=== PATIENT | male | born 1950 | race Caucasian/White ===

== ENCOUNTER → 2019-06-30 14:25 | Outpatient (BNVA) | payer MEDICARE, MEDICAID, SELFPAY | PROVIDERS: PCP Family Medicine; Referring Provider Family Medicine; Visit Provider Physical Therapy Assistant | DX: Z80.0 Family history of malignant neoplasm of digestive organs; L98.9 Disorder of the skin and subcutaneous tissue, unspecified | CPT/HCPCS: 99213 ==

== ENCOUNTER 2019-08-18 06:20 | Day surgery (SDC) | payer MEDICARE, MEDICAID, SELFPAY ==
[2019-08-18 06:38] VITALS: BP 124/65; PULSE 71; RESP 18; TEMP 36.5; O2SAT 96
[2019-08-18] MEDS: Lactated Ringers 1,000 ML 80 ML IV ×4 (06:52→07:10)
[2019-08-18] MEDS: Midazolam 2 MG/1 ML SYRUP 30 MG PO (07:12)
--- NOTE | 2019-08-18 08:07 | BOWEL_PTH ---
PATIENT: Gera Hubbard LOC: [facility] U#:[id number] AGE/SX: 69/M ROOM: RE08/18/[address]: Renetta Darling MD : [id number] BED: DIS: 08/18/2019 SPEC #: [id number] RECD: 08/18/19 12:35 STATUS: TATYANA RE #: [id number] DEEPTI: 08/18/19 08:[address]: Renetta Darling DEPT: Surgical Specimen RECD BY: Virginia Ritter ENTERED: 08/18/19 12:38 SP TYPE: Bowel OTHR DR: Nori Arita Tissues: 1 - SKIN BIOPSY(SHAVE/PUNCH) 2 - BIOPSY BOWEL 3 - BIOPSY BOWEL 4 - BIOPSY BOWEL 5 - BIOPSY BOWEL Procedures: GROSS AND MICRO LEVEL 4 SKIN LEVEL 4 Comments: [id number]
[2019-08-18 08:19] LABS: HCT 43.4 % (40.0-50.0); HGB 14.4 g/dL (13.5-17.5); Mean Corp. HGB Concentration 33.2 g/dL (32.0-36.0); Mean Corpuscular Hemoglobin 29.2 pg (27.0-33.0); Mean Platelet Volume 9.6 fL (8.0-11.0); Platelet Count 246 x1000/uL (130-400); RBC 4.93 m/cumm (4.50-6.00); RBC Distribution Width 14.3 % (11.8-14.1); White Blood Cell Count 5.01 k/cumm (4.4-10.8)
[2019-08-18] MEDS: Lidocaine 1% Multi-Dose 50 ML VIAL (08:21)
[2019-08-18] MEDS: Bacitracin 30 GM TUBE (08:21)
[2019-08-18 08:27] LABS: Hemoglobin A1C 6.3 % (4.5-6.2)
[2019-08-18] MEDS: Endoscopic Tattoo 5 ML SYR IJ (08:55)
--- NOTE | 2019-08-18 09:06 | W.PM.DSUDISC ---
Discharge Plan Disposition Patient Disposition: HOME Condition: Good Discharge Details Reason For Visit: Colonoscopy, shave excision right tovar skin lesion Attending Provider: Renetta Darling Primary Care Provider: Nori Arita Home Meds and New Rx's Prescriptions: Continued lorazepam [Ativan] 2 mg tablet 2 mg PO ONCE PRN (Reason: anxiety) Qty: 1 RF: 0 Glucerna Liquid PO DAILY RF: 0 Discontinued polyethylene glycol 3350 17 gram/dose powder 238 g PO ONCE Qty: 238 RF: 0 bisacodyl [Dulcolax (bisacodyl)] 5 mg tablet,delayed release (DR/EC) 5 mg PO ONCE Qty: 4 RF: 0 Discharge Instructions Additional Instructions: Findings: Four polyps were removed from the colon, including a large rectal polyp. My office will contact you with biopsy results. Follow up: If the rectal polyp is benign, close follow up in one year is needed due to the large size. Keep the right tovar lesion covered with a Bandaid until healed. This may take a few weeks. The dressing applied in surgery may be left for a few days. Please call if you develop: fevers >101.5 Nausea or Vomiting Abdominal pain that is not transient DAY SURGERY UNIT POST COLONOSCOPY INSTRUCTIONS 1. Because there will be medication in your system for the next 24 hours, you may feel a little sleepy. Your coordination will be affected. Therefore: a. Do not drive or operate dangerous equipment for 24 hours. b. Do not drink alcohol beverages for 24 hours (not even beer). c. Plan to go home and rest for the day. 2. Generally there are no restrictions on your activity after a day or so has gone by, but you may feel a bit fatigued for a few days. 3 After you arrive home you may have a light meal and return to a normal diet as you can tolerate it without feeling sick to your stomach. 4. After surgery, you may feel pain or discomfort. This should be only transient, but if it persists please contact your doctor. 5. If there are any questions regarding the findings of your procedure, please feel free to contact your doctor. 6. If you are unable to contact your doctor with a problem, contact the hospital at [phone]. 7. Continue all your regular medications unless directed otherwise. I understand the above instructions and have no questions. Signature of Patient or Responsible Adult Escort Date/Time Name of Responsible Adult Escort Signature of Nurse Date/Time Activity:: Activity as Tolerated Diet:: As Tolerated Discharge Orders Discharge Orders: Discharge Order (Routine); Ordered 08/18/19 Ordered By: Renetta Darling DS: Diagnosis Discharge Diagnosis (1) Skin lesion: Status: Acute (2) Colon polyps: Status: Acute
[2019-08-18 09:21] LABS: ALT 20 U/L (16-63); AST 23 U/L (15-37); Albumin 3.5 g/dL (3.4-5.0); Alkaline Phosphatase 105 U/L (46-116); Anion Gap 8.2 mmol/L (3-11); BUN 11 mg/dL (7-18); Bilirubin, Total 0.5 mg/dL (0.2-1.0); CO2 30.8 mmol/L (21.0-32.0); CREATININE 0.85 mg/dL (0.70-1.30); Calcium 8.2 mg/dL (8.5-10.1); Calculated LDL 94 mg/dL; Chloride 106 mmol/L (98-107); Cholesterol 151 mg/dL (50-200); Glucose 122 mg/dL (70-100); HDL Cholesterol 35 mg/dL (40-60); Potassium 3.8 mmol/L (3.5-5.1); Sodium 145 mmol/L (136-145); TSH (W/Ref FT4) 1.66 uIU/mL (0.36-3.74); Total Protein 6.4 g/dL (6.4-8.2); Triglyceride 113 mg/dL (30-150)
[2019-08-18 09:26] VITALS: BP 119/69; PULSE 63; RESP 16; TEMP 36.4; O2SAT 95
[2019-08-18 09:38] VITALS: BP 121/68; PULSE 63; RESP 16; TEMP 36.5; O2SAT 95
--- NOTE | 2019-08-18 10:04 | W.PM.PROGNOT ---
Date of Service Date of service: 08/18/19 Time of Service: 10:04 Subjective Subjective Interval history since last seen: management of mycotic painful toenails Exam Narrative Exam Narrative: Iftikhar is well-known to me. He suffers from chronic onychomycosis with onychogryphosis. I have recommended permanent removal of the nail plates as he has a very difficult time having his toenails debrided to maintain comfort. He is not prepared at this time to consent to permanent matrixectomy procedures but he would like to have the nails debrided while he is anesthetized for his upcoming surgical procedures with Dr. Darling. Objective: His toenails are severely fungal being thick, yellowish-white, dystrophic, hypertrophic, elongated and in need of debridement. All toenails are grossly deformed. Heavy subungual debris with periungual tenderness is appreciated. There is no active drainage or secondary signs of infection. He has good peripheral pulses without peripheral edema. No suspicious moles or lesions identified on his feet at this time. Impressions: Onychomycosis with onychogryphosis chronic Plan: Manually debrided all toenails 1 through 5 bilaterally aggressively and atraumatically to patient tolerance. Further debrided the nails electrically to reduce thickness. I will continue to follow him in the office episodically as I have been doing for the last several years. Objective Objective Clinical Data: Abnormal lab results 08/18/19 08/18/19 08/18/19 Range/Units 08:07 08:07 08:07 RDW 14.3 H (11.8-14.1) % Glucose 122 H (70-100) mg/dL Hemoglobin A1c 6.3 H (4.5-6.2) % Calcium 8.2 L (8.5-10.1) mg/dL HDL Cholesterol 35 L (40-60) mg/dL Vital Signs Temperature 36.5 C 08/18/19 09:38 Pulse 63 08/18/19 09:38 Pulse Rhythm Regular 08/18/19 06:38 Respiratory Rate 16 08/18/19 09:38 Respiratory Depth Normal 08/18/19 06:38 Blood Pressure 121/68 08/18/19 09:38 Pulse Oximetry 95 08/18/19 09:38 Oxygen Delivery Method Room Air 08/18/19 09:38 Oxygen Flow Rate 0 08/18/19 06:38 Pain Level 0 08/18/19 09:38 Intake & Output 08/17/19 08/18/19 08/18/19 18:59 06:59 18:59 Intake Total 23.999 / 23.999 Balance 23.999 / 23.999 Weight 86.3 kg Intake: IV 23.999 / 23.999 Oral 0 / 0 Other: Emesis Description None Laboratory Results WBC 5.01 k/cumm (4.4-10.8) 08/18/19 08:07 RBC 4.93 m/cumm (4.50-6.00) 08/18/19 08:07 Hgb 14.4 g/dL (13.5-17.5) 08/18/19 08:07 Hct 43.4 % (40.0-50.0) 08/18/19 08:07 MCV 88.0 fL (80-95) 08/18/19 08:07 MCH 29.2 pg (27.0-33.0) 08/18/19 08:07 MCHC 33.2 g/dL (32.0-36.0) 08/18/19 08:07 RDW 14.3 % (11.8-14.1) H 08/18/19 08:07 Plt Count 246 x1000/uL (130-400) 08/18/19 08:07 MPV 9.6 fL (8.0-11.0) 08/18/19 08:07 Sodium 145 mmol/L (136-145) 08/18/19 08:07 Potassium 3.8 mmol/L (3.5-5.1) 08/18/19 08:07 Chloride 106 mmol/L (98-107) 08/18/19 08:07 Carbon Dioxide 30.8 mmol/L (21.0-32.0) 08/18/19 08:07 Anion Gap 8.2 mmol/L (3-11) 08/18/19 08:07 BUN 11 mg/dL (7-18) 08/18/19 08:07 Creatinine 0.85 mg/dL (0.70-1.30) 08/18/19 08:07 Estimated GFR/1.73 m2 >= 60.00 (mL/min/1.73m2) 08/18/19 08:07 Glucose 122 mg/dL (70-100) H 08/18/19 08:07 Hemoglobin A1c 6.3 % (4.5-6.2) H 08/18/19 08:07 Calcium 8.2 mg/dL (8.5-10.1) L 08/18/19 08:07 Total Bilirubin 0.5 mg/dL (0.2-1.0) 08/18/19 08:07 AST 23 U/L (15-37) 08/18/19 08:07 ALT 20 U/L (16-63) 08/18/19 08:07 Alkaline Phosphatase 105 U/L (46-116) 08/18/19 08:07 Total Protein 6.4 g/dL (6.4-8.2) 08/18/19 08:07 Albumin 3.5 g/dL (3.4-5.0) 08/18/19 08:07 Triglycerides 113 mg/dL (30-150) 08/18/19 08:07 Total Cholesterol 151 mg/dL (50-200) 08/18/19 08:07 LDL Cholesterol, Calc 94 mg/dL 08/18/19 08:07 HDL Cholesterol 35 mg/dL (40-60) L 08/18/19 08:07 TSH 1.66 uIU/mL (0.36-3.74) 08/18/19 08:07
[2019-08-18 10:55] VITALS: BP 125/70; PULSE 65; RESP 16; TEMP 36; O2SAT 97
--- NOTE | 2019-08-21 09:59 | ROE_ITS ---
DATE OF PROCEDURE: August 18, 2019 PREOPERATIVE DIAGNOSIS: 1. Right tovar skin lesion of uncertain behavior. 2. Family history of colon cancer. POSTOPERATIVE DIAGNOSIS: 1. Right tovar skin lesion of uncertain behavior. 2. Colon polyps. PROCEDURE: 1. Shave biopsy and destruction of right tovar skin lesion. 2. Colonoscopy with snare polypectomy. 3. Tattooing of polypectomy site. SURGEON: Renetta Darling M.D. ANESTHESIA: Local and room air general. INDICATIONS: This is a 69-year-old man whose brother was treated for colon cancer. The patient pres ents for routine screening colonoscopy. He also has a persistent itching skin lesion on his right an terior tovar that has been treated with cryotherapy. It keeps returning and the caregivers have wonde red about excision. Of note, his prior colonoscopy was in 2013. PROCEDURE: The patient was placed supine on the operating table and sedated. His right anterior lino n was prepped and draped sterilely. There was a 1.5 cm circular, reddish, slightly scaly and minimal ly raised lesion with a second 8 mm lesion just distal to that. This area was infiltrated with local anesthetic. A #16 blade was used to shave a portion of the lesion, which was sent to pathology. Th e remainder was cauterized. The wound was dressed with Bacitracin, a 2x2 and a Tegaderm. The patient was then repositioned onto his left side. Digital rectal examination revealed no abnorma lities. The scope was advanced to the cecum without difficulty. His prep was excellent. The ileoce gerda valve and appendiceal orifice were clearly identified. The scope was slowly withdrawn with a < 1 cm polyp identified in the ascending colon. This was removed with snare polypectomy and retrieved f or pathology. The transverse colon was normal. In the descending colon a < 1 cm polyp was snared an d retrieved for pathology. There was also a similar lesion in the sigmoid region that was snared and retrieved. The rectum revealed a large flat polyp that was probably within 5 cm of the anal verge. A portion of this was more polypoid and then adjacent to it had some minimal flat polypoid change. This measured approximately 2 cm. The larger polypoid region was removed with the snare in piecemeal . The largest piece was dragged out for retrieval and then the remaining smaller pieces could be suc tioned through the scope. The flat minimal polypoid change was cauterized with the tip of the snare. I then tattooed the lesion on either side. Two hemostatic clips were applied. There had been good hemostasis and this was done more as a preventative measure. The air was suctioned from the colon a nd the scope withdrawn. Repeat digital rectal examination revealed the clips to be present in the pa tient's right lateral location. After completion of the procedure, he was also given his vaccination s under anesthesia per caregiver request. He tolerated the procedure well and was stable to recovery . If the rectal polyp is benign, he should have a follow-up colonoscopy again in one year. Further plans will be made after review of pathology. cc: Nori Arita M.D.
== END 2019-08-18 11:25 | disposition home or self-care (01) ==
PROVIDERS: PCP Family Medicine; Visit Provider Surgery
PROC: 0DJD8ZZ Inspection of Lower Intestinal Tract, Via Natural or Artificial Opening Endoscopic (ICD-10-PCS; CPT 45378; principal; 2019-08-18 07:30)
PROC: (CPT 45385; 2019-08-18 07:30)
DX: Z12.11 Encounter for screening for malignant neoplasm of colon (principal); D04.71 Carcinoma in situ of skin of right lower limb, including hip; Z80.0 Family history of malignant neoplasm of digestive organs; D12.2 Benign neoplasm of ascending colon; D12.4 Benign neoplasm of descending colon; D12.5 Benign neoplasm of sigmoid colon; D12.8 Benign neoplasm of rectum
CPT/HCPCS: 45385; 45381; 11102; 36415; 80053; 80061; 85027; 88305; 99231; 83036; 84443

== ENCOUNTER 2021-01-15 18:48 | Emergency (ER) | payer MEDICARE, MEDICAID, SELFPAY ==
--- NOTE | 2021-01-15 18:45 | DI.RAD_ITS ---
EXAM: XR KNEE LT 3V AP,LAT,MARLO CLINICAL HISTORY: Pain, devel delay. TECHNIQUE: 2D digital imaging was performed. COMPARISON: CR,XR XR KNEE RT 3V AP,LAT,MARLO from 01/15/2021 FINDINGS: BONES: No acute fracture is present. No bony destructive lesion is seen. There is a small enthesophy te at the superior patella. JOINTS: The knee is normally aligned. There is a very small joint effusion. SOFT TISSUE: Normal. IMPRESSION: No acute abnormality. DATA REPOSITORY: RADIATION DOSE DELIVERED:
--- NOTE | 2021-01-15 18:54 | ED.GENADUL_ITS ---
Discharge Plan Disposition Patient Disposition: HOME Condition: Improving Discharge Details Clinical Impression: Myalgia Primary Care Provider: Nori Arita ED Provider: Poncho Castillo Home Meds and New Rx's Prescriptions: Continued lorazepam [Ativan] 2 mg tablet 2 mg PO ONCE PRN (Reason: anxiety) Qty: 1 RF: 0 Discharge Instructions Instructions: Musculoskeletal Pain (ED) Additional Instructions: May use Tylenol/acetaminophen 650 to 975 mg every 6 hours as needed for pain. You may also use ibuprofen 600 to 800 mg every 8 hours as needed for pain. We will ask our care management team to arrange a follow-up for you in clinic for recheck. Return if you have a fever, redness or swelling of a joint, or any other acute concerns. Medical Decision Making 70-year-old male presents on referral from [facility] where he lives. He is mentally retarded and has been noted to seeming to have some hip pain on the left leg with decreased willingness to ambulate. No fall reported. No fever or rash. He arrives to ER stable and without acute distress. He is noted to move the legs independently on his own, and then able to stand and ambulate to the bathroom.. He did receive his Covid immunization 2 days ago and may be experiencing myalgias. As he is nonverbal essentially, he is not a good contributor to the history. He does have anxiety with medical procedures and given 1 mg of lorazepam as well as acetaminophen. Referred for x-ray of the pelvis and both knees which do not show any acute findings. Improved following medications. May be myalgias. I have discussed with her caregiver plan for outpatient surveillance, we will arrange a follow-up with primary care for recheck. HPI General Mode of arrival: ambulatory . Date/Time Provider Initiated Documentation: 01/15/21 18:58 . Limitations to Documentation: no limitations . Information obtained by: patient . History of Present Illness 70 year old M presents to the emergency department with the chief complaint of Pain with walking, described as moderate, and it has been intermittent. Rest improves symptom(s), Movement worsens symptoms . Patient did receive the following treatments prior to arrival, other (No fall or injury reported.) Related Data Home Medications Medication Instructions Recorded Confirmed lorazepam 2 mg tablet 2 mg PO ONCE PRN #1 tab 08/03/19 01/15/21 Previous Rx's Medication Instructions Recorded lorazepam 2 mg tablet 2 mg PO ONCE PRN #1 tab 08/03/19 Allergies Allergy/AdvReac Type Severity Reaction Status Date / Time No Known Allergies Allergy Verified 08/18/19 06:36 Review of Systems Narrative: Review of systems limited due to patient's intellectual disability. [facility] Medical History PRINCE (dyspnea on exertion) Facial basal cell cancer Family hx of colon cancer Impaired fasting glucose Intellectual disability Partial blindness Seborrheic keratoses Surgical History History of colonoscopy Family History Other Cancer Social History Smoking/Tobacco Use Status: Never Smoking risk assessment performed?: Yes Alcohol Intake: never Drug use: Never Substance use type: does not use Do you feel safe at home: Yes (per caregiver he has been there 13 yrs and seems happy) Do you feel safe in your relationship?: Yes Exam Narrative Exam Narrative: GEN: awake, alert, interactive. HEAD: Normocephalic, atraumatic ENT: Mucous membranes moist, oropharynx unremarkable, External ear exam unremarkable EYES: PERRL, EOMI NECK: Full ROM, no AIDA, no menigismus CHEST/RESP: Nontender, clear to auscultation bilateral, no wheeze/rhonchi/rales CARDIOVASCULAR: RRR, no murmur, rub floridalma. 2+ Rad pulse bilateral ABDOMEN: Soft, nontender, no mass. +Bowel sounds EXT: Full ROM, no edema, no rash. Moves extremities independently, no pain with palpation or rotation of the femur. No joint effusion appreciated. Neuro: Grossly normal neurologic exam.
[2021-01-15 18:57] VITALS: BP 139/63; PULSE 94; RESP 19; TEMP 37.1; O2SAT 97
[2021-01-15] MEDS: Acetaminophen 500 MG TAB 1000 MG PO (20:05)
[2021-01-15] MEDS: LORazepam 1 MG TAB PO (20:05)
--- NOTE | 2021-01-15 20:51 | DI.RAD_ITS ---
EXAM: XR KNEE RT 3V AP,LAT,MARLO CLINICAL HISTORY: Pain, devel delay. TECHNIQUE: 2D digital imaging was performed. COMPARISON: No exams were available for comparison FINDINGS: BONES: No acute fracture is present. No bony destructive lesion is seen. There is a small enthesophyt e at the superior patella. JOINTS: The knee is normally aligned. No joint effusion is seen. SOFT TISSUE: Normal. IMPRESSION: No acute abnormality. DATA REPOSITORY: RADIATION DOSE DELIVERED:
--- NOTE | 2021-01-15 20:52 | DI.RAD_ITS ---
EXAM: XR PELVIS AP CLINICAL HISTORY: pain with walking, devel delayed. TECHNIQUE: 2D digital imaging was performed. COMPARISON: No exams were available for comparison FINDINGS: BONES: No acute fracture is present. No bony destructive lesion is seen. JOINTS: No dislocation present. [id number] degenerative changes are seen in the hips bilaterall y. SOFT TISSUE: Normal. IMPRESSION: [id number] degenerative changes of the hips. No acute fracture or dislocation. DATA REPOSITORY: RADIATION DOSE DELIVERED:
[2021-01-15 21:05] VITALS: BP 135/69; PULSE 89; RESP 17; TEMP 37.2; O2SAT 94
--- NOTE | 2021-01-15 21:08 | DI.VRAD_ITS ---
PROCEDURE INFORMATION: Exam: XR Right Knee Exam date and time: 01/15/2021 8:51 PM Age: 70 years old Clinical indication: Right; Patient HX: Per PT care provider, pain x1 day, difficulty bending over and walking, left knee appears to be buckling, no trauma, normally ambulates very well without assistance TECHNIQUE: Imaging protocol: XR Right knee. Views: 3 views. COMPARISON: No relevant prior studies available. FINDINGS: Bones/joints: Knee joint spacing and alignment are anatomic. No fracture or dislocation. Tiny superior pole patellar enthesophyte. No joint effusion. Soft tissues: Normal. IMPRESSION: 1. No acute fracture or dislocation. 2. Chronic distal quadriceps enthesopathy. Dictated and Authenticated by: Dat Vega MD. Ordering:MARSHA Isaac MD
--- NOTE | 2021-01-15 21:10 | DI.VRAD_ITS ---
PROCEDURE INFORMATION: Exam: XR Pelvis Exam date and time: 01/15/2021 8:53 PM Age: 70 years old Clinical indication: Pelvic pain; Patient HX: Per PT care provider, pain x1 day, difficulty bending over and walking, left knee appears to be buckling, no trauma, normally ambulates very well without assistance TECHNIQUE: Imaging protocol: XR pelvis. Views: 1 or 2 view. COMPARISON: CT ABD PELVIS WO CONTRAST 09/06/2017 3:02 AM FINDINGS: Bones/joints: Mild bilateral hip joint degenerative changes. No acute fracture or dislocation. Soft tissues: Unremarkable. IMPRESSION: 1. No acute fracture. 2. Mild bilateral hip joint degenerative disease. Dictated and Authenticated by: Dat Vega MD. Ordering:MARSHA Isaac MD
--- NOTE | 2021-01-15 21:11 | DI.VRAD_ITS ---
PROCEDURE INFORMATION: Exam: XR Left Knee Exam date and time: 01/15/2021 8:52 PM Age: 70 years old Clinical indication: Patient HX: Per PT care provider, pain x1 day, difficulty bending over and walking, left knee appears to be buckling, no trauma, normally ambulates very well without assistance TECHNIQUE: Imaging protocol: XR Left knee. Views: 3 views. COMPARISON: CR LEFT FEMUR 05/25/2018 3:08 PM FINDINGS: Bones/joints: Knee joint spacing and alignment are anatomic. No fracture or dislocation. No joint effusion. Tiny superior pole patellar enthesophyte. Soft tissues: Normal. IMPRESSION: 1. No acute fracture. 2. Chronic distal quadriceps enthesopathy. Dictated and Authenticated by: Dat Vega MD. Ordering:MARSHA Isaac MD
[2021-01-15 21:57] VITALS: BP 150/60; PULSE 96; RESP 18; O2SAT 94
--- NOTE | 2021-01-16 06:18 | NUR.NOTE ---
Nursing Note: Referral for follow up faxed to [facility] 01/16/21 @[id number] libl
== END 2021-01-15 22:21 | disposition home or self-care (01) ==
PROVIDERS: Emergency Provider Emergency Medicine; PCP Family Medicine
DX: M79.18 Myalgia, other site (principal)
CPT/HCPCS: 73562; 99284; 72170; 99285

== ENCOUNTER → 2021-06-05 13:43 | Outpatient (BNVA) | payer MEDICARE, MEDICAID, SELFPAY | PROVIDERS: PCP Family Medicine; Referring Provider Family Medicine; Visit Provider Physical Therapy Assistant | DX: Z12.11 Encounter for screening for malignant neoplasm of colon (principal); Z86.010 Personal history of colon polyps ==

== ENCOUNTER 2021-06-20 08:06 | Day surgery (SDC) | payer MEDICARE, MEDICAID, SELFPAY ==
--- NOTE | 2021-06-19 14:27 | W.ANESPRE ---
General Info Date of Service Date Performed: 06/20/21 Height: 6 ft 3 in Weight: 86.8 kg Body Mass Index (BMI): 23.9 Surgical Procedure: Operation Date: 06/20/21 11:35 Proposed Procedures Side Surgeon michelle Johnson, Meds Allergies and Home Medications Allergies Allergy/AdvReac Type Severity Reaction Status Date / Time No Known Allergies Allergy Verified 06/20/21 08:39 Home Medication Medication Instructions Recorded lorazepam 2 mg tablet 2 mg PO ONCE PRN #1 tab 08/03/19 ketoconazole 2 % topical cream 1 applic TOPICAL BID 02/07/21 bisacodyl 5 mg tablet,delayed 5 mg PO ONCE #4 tab 06/05/21 release polyethylene glycol 3350 17 238 g PO ONCE #238 g 06/05/21 gram/dose oral powder Current Visit Medications: Current Medications Generic Name Dose Route Start Last Admin Trade Name Freq PRN Reason Stop Dose Admin Ringer's Solution 1,000 mls @ 80 mls/hr 06/20/21 06:00 IV 07/19/21 23:59 INFUSION TOM IV Miscellaneous Supplies 1 each 06/20/21 06:00 Iv Access IV 07/19/21 23:59 DIRECTED TOM Sodium Chloride 0 ml 06/20/21 06:00 Normal Saline Flush 10 Ml Syr IV 07/19/21 23:59 PRN PRN Sodium Chloride 0 ml 06/20/21 06:00 Normal Saline 10 Ml Vial IJ 07/19/21 23:59 DIRECTED PRN Sterile Water 0 ml 06/20/21 06:00 Water,Injection,Sterile 10 Ml Vial IJ 07/19/21 23:59 DIRECTED PRN PFSH Active Problems Active Problems: Problem Status Onset Code Urinary incontinence R32 Squamous cell carcinoma Prediabetes R73.03 Screening for colon cancer Z12.11 Myalgia M79.10 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 Colon polyps K63.5 Strain of right hip S76.011A Neoplasm of unspecified behavior of bone, soft tissue, and skin D49.2 Skin lesion L98.9 Seborrheic keratoses L82.1 Impaired fasting glucose R73.01 Intellectual disability F79 PRINCE (dyspnea on exertion) R06.09 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 Medical History Medical History PRINCE (dyspnea on exertion) Facial basal cell cancer Family hx of colon cancer Impaired fasting glucose Intellectual disability Partial blindness Seborrheic keratoses Surgical History Surgical History History of colonoscopy Tobacco Smoking/Tobacco Use Status: Never Alcohol Alcohol Intake: never Substance Use Substance use: Never Substance use type: does not use Vital Signs and Lab Results Vital Signs Most Recent Vital Signs in EMR: Temp Pulse Resp BP Pulse Ox 36.4 C L 76 16 141/73 H 97 06/20/21 08:28 06/20/21 08:28 06/20/21 08:28 06/20/21 08:28 06/20/21 08:28 Lab Results Blood Type / Crossmatch: No Data to Display Complete Blood Count: No Data to Display Complete Metabolic Panel: No Data to Display Liver Function Panel: No Data to Display Coagulation Panel: No Data to Display Cardiac Panel: No Data to Display Arterial Blood Gas: No Data to Display Venous Blood Gas: No Data to Display Pancreas Panel: No Data to Display Thyroid Panel: No Data to Display Infectious Disease: No Data to Display Blood Cultures: No Data to Display Toxicology Panel: No Data to Display Anesthesia Assessment and Plan Anesthesia History Personal History: Delayed Emergence Family History: No Family History of Anesthesia Complications Exercise Tolerance Exercise Tolerance: Metabolic Equivalents>4 Cardiac & Pulmonary Exam Cardiac Exam: Normal S1/S2 Heart Sounds Pulmonary Exam: Clear Bilateral Breath Sounds Airway Exam Known Difficult Airway: No Mallampati Class: Unable to Assess Mouth Opening: Narrow (< 3cm) Thyromental Distance: Less than 3 cm Neck Range of Motion: Limited ROM Neck Circumference: Normal Teeth Condition: Edentulous ASA Classification ASA Score: ASA 2 Emergency Case?: No NPO Status NPO Status: NPO Clears >2 hours, Solids >8 hours Anesthesia Plan Resuscitation Status: Full Code Anesthesia Technique: General Anesthesia Airway Planned: Natural Airway Monitors Used: Standard Monitors Preoperative Comments:: 71 yo developmentally delayed male for colo. last screening was 2018 with adenoma, tubulovillious adenoma. consent was done (06/19/21 via caregiver). He is extremely fearful of needles. He received 30 mg PO versed prior to his last colo and his caregiver states he was extremely sleepy well into the night and took a long time to get discharged, his postop note reflects this as well. Given his fear of needles additional labs, vaccines have been ordered by the PCP per caregiver.
[2021-06-20] VITALS (10 sets, daily range): BP systolic 106–201; BP diastolic 62–95; PULSE 64–76; RESP 12–16; TEMP 36.1–36.6; O2SAT 95–99; BMI 23.9
[2021-06-20] MEDS: Lactated Ringers 1,000 ML 80 ML IV (10:10)
--- NOTE | 2021-06-20 10:12 | W.COLOREPORT ---
Date of service: 06/20/21 Time of Service: 10:12 Colonoscopy Report Date of procedure: 06/20/21 Pre-op diagnosis general: villous adenoma of the rectum Post-op diagnosis procedure note: same Surgeon: Salud Johnson Anesthesia Type: General LMA/ETT Estimated blood loss (mL): 3 Pathology: none sent Complications: None Disposition: PACU Prep: Miralax/Dulcolax Retraction Time: 20 Procedure Description: After informed consent was obtained the patient's guardian. The pt was taken to the procedure room and placed in a left decubitous position. Monitors were applied and a time out was done. The patients name, date of , procedure, allergies to medications and metal in their body was reviewed. The patient was then sedated. Once sedated and comfortable a rectal exam was done. External exam was normal. Internal exam revealed a normal sphincter tone and no palpable masses. The scope was then introduced and retrofelexed. no internal hemorrhoids were identified. The scope was then advanced to the cecum w/out difficulty. The TI and appendiceal orifice were identified. The prep was adequate. Pt had a small polyp in the cecum- this was removed w/ a hot snare. A clip was applied. the specimen was retrieved. The scope was then slowly retracted over 15 minutes back into the rectum. Polyps were removed in rectum using a hot biting forcept. He has a large, flat, 3cm, irreg shaped polyp. It has been previously tatooed. It is removed w/ a snare and than multiple bites of a hot bitter (at elast 6). The defect was closed w/ x2 endo clips. All specimens are retrieved and no bleeding is noted. The scope was removed and the patient was woken up and taken back to Same day surgery in stable condition. The patient tolerated the procedure well and there were no immediate complications. Follow up: The patient should follow up in 1 years unless they develop changes in bowel habits or other new gastrointestinal complaints.
--- NOTE | 2021-06-20 10:20 | POCOE_ITS ---
Date of service: 06/20/21 Time of Service: 10:20 History of Present Illness History of Present Illness Chief Complaint: Onychomycosis with onychogryphosis Narrative: 71-year-old male with intellectual disability with severely overgrown, painful toenails. [facility] Medical History PRINCE (dyspnea on exertion) Facial basal cell cancer Family hx of colon cancer Impaired fasting glucose Intellectual disability Partial blindness Seborrheic keratoses Surgical History History of colonoscopy Family History Other Cancer Social History Smoking/Tobacco Use Status: Never Smoking risk assessment performed?: Yes Alcohol Intake: never Drug use: Never Substance use type: does not use Do you feel safe at home: Yes (per caregiver he has been there 13 yrs and seems happy) Do you feel safe in your relationship?: Yes Exam Narrative Exam Narrative: Gera is seen on a stretcher, he has been sedated for cooperation. He is resting comfortably. Peripheral pulses are palpable at the ankles, capillary fill is under 3 seconds, no edema. Skin is grossly intact. Toenails are remarkable for severe hypertrophy, yellowish-brown discoloration, onychogyphosis. Heavy subungual debris with periungual tenderness but no active drainage. All toenails are affected with distal lysis of the hallux nails also observed. Impressions: Onychomycosis with onychogryphosis chronic Plan: Debrided all toenails aggressively yet atraumatically to patient tolerance with double-action bone cutting forceps. Excellent reduction of the nail plate appreciated. He will require continued palliative care to maintain comfort. I will see him in the office as needed. Results Last Vital Signs Temp 36.4 C L 06/20/21 08:28 Pulse 76 06/20/21 08:28 Resp 16 06/20/21 08:28 BP 141/73 H 06/20/21 08:28 Pulse Ox 97 06/20/21 08:28 Labs Result diagrams: 06/20/21 10:10 06/20/21 10:10
[2021-06-20 10:22] LABS: Abs Immature Grans 0.02 10^3/uL (0.0-0.06); Absolute Basophil Count 0.04 10^3/uL (0.0-0.2); Absolute Eosinophil Count 0.09 10^3/uL (0.0-0.7); Absolute Lymphocyte Count 1.56 10^3/uL (1.2-3.4); Absolute Monocyte Count 0.77 10^3/uL (0.1-0.8); Absolute Neutrophil Count 5.06 10^3/uL (1.2-6.7); Basophils % 0.5; Eosinophils % 1.2; HCT 47.5 % (40.0-50.0); HGB 15.5 g/dL (13.5-17.5); Immature Grans % 0.3; Lymphocytes % 20.7; MCHC 32.6 % (32.0-36.0); MPV 9.7 fL (8.0-11.0); Monocytes % 10.2; Neutrophils % 67.1; Nucleated RBC 0 %; Platelet Count 240 10^3/uL (130-400); RBC 5.34 10^6/uL (4.36-5.78); RDW 13.2 % (11.8-14.1); RDW-SD 43.1 fL; WBC 7.54 10^3/uL (4.4-10.8)
--- NOTE | 2021-06-20 10:23 | NUR.NOTE ---
Addendum entered by Autumn Yeung 06/20/21 10:31: LABS DRAWN ALSO FROM IV START Original Note: 06/20/21 1000 PT BROUGHT TO PACU FOR IV START,SHINGRIX VACCINE AND TOENAIL WORK BY DR STEWART PRIOR TO PTS COLONOSCOPY. PT MONITORED AND GIVEN IM KETAMINE DART BY CORIN SANTANA.PT SEDATED AND IV STARTED IN RT WRIST TO LR.VACCINE GIVEN IM IN LEFT DELTOID AND TOE WORK DONE WHILE PT QUIETLY AWAKE,VSS.CAREGIVERS PRESENT.PT TAKEN TO PROCEDURE ROOM 1 TO PROCEED WITH HIS COLONOSCOPY.Nursing Note:
[2021-06-20] MEDS: Normal Saline Flush 10 ML SYR (10:40)
--- NOTE | 2021-06-20 10:42 | BOWEL_PTH ---
PATIENT: Gera Hubbard LOC: [facility] U#:[id number] AGE/SX: 71/M ROOM: RE06/20/[address]: Salud Johnson : 1950 BED: DIS: 06/20/2021 SPEC #: [id number] RECD: 06/20/21 12:20 STATUS: TATYANA REBarby #: [id number] DEEPTI: 06/20/21 10:[address]: Salud Johnson DEPT: Surgical Specimen RECD BY: Lucinda Curran ENTERED: 06/20/21 12:21 SP TYPE: Bowel OTHR DR: Nori Arita Tissues: 1 - BIOPSY BOWEL 2 - BIOPSY BOWEL Procedures: GROSS AND MICRO LEVEL 4 Comments: [id number]
[2021-06-20 10:57] LABS: Hemoglobin A1C 6.1 % (<5.7)
[2021-06-20 11:12] LABS: Anion Gap 10.4 mmol/L (3-11); BUN 12 mg/dL (7-18); CO2 26.6 mmol/L (21.0-32.0); CREATININE 0.9 mg/dL (0.70-1.30); Calcium 8.9 mg/dL (8.5-10.1); Chloride 107 mmol/L (98-107); Glucose 103 mg/dL (74-106); Potassium 4.2 mmol/L (3.5-5.1); Sodium 144 mmol/L (136-145); TSH (W/Ref FT4) 1.31 uIU/mL (0.36-3.74)
--- NOTE | 2021-06-20 11:12 | PDOC.DSDIS_ITS ---
Discharge Plan Disposition Patient Disposition: HOME Condition: Stable Discharge Details Reason For Visit: colon scope Attending Provider: Salud Johnson Primary Care Provider: Nori Arita Home Meds and New Rx's Prescriptions: Continued lorazepam [Ativan] 2 mg tablet 2 mg PO ONCE PRN (Reason: anxiety) Qty: 1 RF: 0 ketoconazole 2 % cream 1 applic topical BID RF: 0 Discontinued polyethylene glycol 3350 17 gram/dose powder 238 g PO ONCE Qty: 238 RF: 0 bisacodyl [Dulcolax (bisacodyl)] 5 mg tablet,delayed release (DR/EC) 5 mg PO ONCE Qty: 4 RF: 0 Discharge Instructions Additional Instructions: DSU Colonoscopy Post- Op Instructions Instructions for Everyone who is given Anesthesia: For your safety, please do the following for the next twenty-four (24) hours: *Do Not operate a motor vehicle (car, truck, motorcycle, etc.) *Do Not drink alcoholic beverages or use any recreational drugs for the first 24 hours or while taking pain medications. The medications in your body may have a reaction that can be dangerous. *Do Not make any important decisions or sign any important papers. Findings:villous adenoma in rectum -no ASA/NSAID's for 72 hrs -may have bleeding w/ first BM. Follow up: repeat in 1 yrs time. 1. No lifting over 20 pounds or strenuous activity for the first 24 hours after your procedure. After 24 hours there are no restrictions on your activity but you may feel fatigued for a few days. 2. After you arrive home you may have a light meal and return to your normal diet as you can tolerate it without feeling sick to your stomach. 3. You may have a bloated, gaseous feeling in your belly (abdomen) after a colonoscopy. Passing gas and belching will help. Walking or lying down on your left side with your knees flexed may relieve the discomfort. Call the office at [phone] (Office) or [phone] (Hospital) right away if you notice any of the following: a.Vomiting of blood or ?coffee ground stools?. b.Rectal bleeding 1Tbsp, blood clots or continuous bleeding. c.Severe belly (abdominal) pain. d.A hard distended belly (abdomen) and an inability to pass gas. 4. Please don?t expect to have a normal BM (bowel movement) for 2-3 days after your procedure. 5. If there are questions regarding the findings of your procedure, please contact your doctor 6. If you are unable to contact your doctor with a problem, contact the hospital at [phone]. 7. Continue all your regular medications unless directed otherwise. I understand the above instructions and have no questions. Signature of Patient or Adult Escort Name of Responsible Adult Escort Signature of Nurse Date/Time Activity:: Activity as Tolerated Diet:: Normal Diet Discharge Orders Discharge Orders: Discharge Order (Routine); Ordered 06/19/21 Ordered By: Salud Johnson DS: Diagnosis Discharge Diagnosis (1) Villous adenoma of rectum: Status: Acute
--- NOTE | 2021-06-20 11:20 | PDOC.DSDIS_ITS ---
Discharge Plan Disposition Patient Disposition: HOME Condition: Stable Discharge Details Reason For Visit: colon scope Attending Provider: Salud Johnson Primary Care Provider: Nori Arita Home Meds and New Rx's Prescriptions: Continued lorazepam [Ativan] 2 mg tablet 2 mg PO ONCE PRN (Reason: anxiety) Qty: 1 RF: 0 ketoconazole 2 % cream 1 applic topical BID RF: 0 Discontinued polyethylene glycol 3350 17 gram/dose powder 238 g PO ONCE Qty: 238 RF: 0 bisacodyl [Dulcolax (bisacodyl)] 5 mg tablet,delayed release (DR/EC) 5 mg PO ONCE Qty: 4 RF: 0 Discharge Instructions Additional Instructions: DSU Colonoscopy Post- Op Instructions Instructions for Everyone who is given Anesthesia: For your safety, please do the following for the next twenty-four (24) hours: *Do Not operate a motor vehicle (car, truck, motorcycle, etc.) *Do Not drink alcoholic beverages or use any recreational drugs for the first 24 hours or while taking pain medications. The medications in your body may have a reaction that can be dangerous. *Do Not make any important decisions or sign any important papers. Findings:villous adenoma in rectum -no ASA/NSAID's for 72 hrs -may have bleeding w/ first BM. Follow up: repeat in 1 yrs time. 1. No lifting over 20 pounds or strenuous activity for the first 24 hours after your procedure. After 24 hours there are no restrictions on your activity but you may feel fatigued for a few days. 2. After you arrive home you may have a light meal and return to your normal diet as you can tolerate it without feeling sick to your stomach. 3. You may have a bloated, gaseous feeling in your belly (abdomen) after a colonoscopy. Passing gas and belching will help. Walking or lying down on your left side with your knees flexed may relieve the discomfort. Call the office at [phone] (Office) or [phone] (Hospital) right away if you notice any of the following: a.Vomiting of blood or ?coffee ground stools?. b.Rectal bleeding 1Tbsp, blood clots or continuous bleeding. c.Severe belly (abdominal) pain. d.A hard distended belly (abdomen) and an inability to pass gas. 4. Please don?t expect to have a normal BM (bowel movement) for 2-3 days after your procedure. 5. If there are questions regarding the findings of your procedure, please contact your doctor 6. If you are unable to contact your doctor with a problem, contact the hospital at [phone]. 7. Continue all your regular medications unless directed otherwise. I understand the above instructions and have no questions. Signature of Patient or Adult Escort Name of Responsible Adult Escort Signature of Nurse Date/Time Stand Alone Forms: Anesthesia Discharge Inst. Activity:: Activity as Tolerated Diet:: Normal Diet Discharge Orders Discharge Orders: Discharge Order (Routine); Ordered 06/19/21 Ordered By: Salud Johnson Discharge Data Discharge Date/Time-TO BE ENTERED AT DEPARTURE: 06/20/21 13:45 DS: Diagnosis Discharge Diagnosis (1) Villous adenoma of rectum: Status: Acute
[2021-06-20] MEDS: Labetalol 100 MG/20 ML VIAL 10 MG IVP (11:58)
--- NOTE | 2021-06-20 13:30 | W.ANESPOSTOP ---
Postoperative Evaluation Date, Time and Location Date Performed: 06/20/21 Time Performed: 13:30 Patient Location: Day Surgery Unit Vital Signs Most Recent Imported Vital Signs: Most Recent Vital Signs Temp Pulse Resp BP Pulse Ox 36.1 C L 66 16 146/79 H 95 06/20/21 13:13 06/20/21 13:13 06/20/21 13:13 06/20/21 13:13 06/20/21 13:13 Pain Score Most Recent Pain Score: Most Recent Pain Score Pain Level 0 06/20/21 13:13 Assessment Mental Status: Awake (Alert & Oriented to Patient Baseline) Airway and Respiratory Function: Patent airway with normal (patient baseline) respiratory exam Cardiovascular Function: Hemodynamically Stable Hydration Status: Adequately Hydrated Nausea & Vomiting: No Nausea or Vomiting Pain: Pt. Denies Any Pain Peripheral Nerve Block: Patient did not receive a nerve block
== END 2021-06-20 13:45 | disposition home or self-care (01) ==
PROVIDERS: PCP Family Medicine; Visit Provider Surgery
PROC: 0DJD8ZZ Inspection of Lower Intestinal Tract, Via Natural or Artificial Opening Endoscopic (ICD-10-PCS; CPT 45378; principal; 2021-06-20 09:15)
DX: Z09 Encounter for follow-up examination after completed treatment for conditions other than malignant neoplasm (principal); Z86.010 Personal history of colon polyps; D12.0 Benign neoplasm of cecum; D12.8 Benign neoplasm of rectum; R73.03 Prediabetes; Z80.0 Family history of malignant neoplasm of digestive organs; R73.01 Impaired fasting glucose
CPT/HCPCS: 45385; 45384; 80048; 88305; 83036; 84443; 85025; J2001; J2704

== ENCOUNTER → 2022-08-03 08:56 | Outpatient (BNVA) | payer MEDICARE, MEDICAID, SELFPAY | PROVIDERS: PCP Family Medicine; Referring Provider Family Medicine; Visit Provider Surgery | DX: Z12.11 Encounter for screening for malignant neoplasm of colon (principal); Z80.0 Family history of malignant neoplasm of digestive organs; D37.5 Neoplasm of uncertain behavior of rectum | CPT/HCPCS: 99213 ==

== ENCOUNTER 2022-08-11 06:12 | Day surgery (SDC) | payer MEDICARE, MEDICAID, SELFPAY ==
--- NOTE | 2022-08-10 10:59 | PDOC.DSDIS_ITS ---
Discharge Plan Disposition Patient Disposition: HOME Condition: Good Discharge Details Reason For Visit: colon scope Attending Provider: Salud Johnson Primary Care Provider: Nori Arita Home Meds and New Rx's Prescriptions: Continued lorazepam [Ativan] 2 mg tablet 2 mg PO ONCE PRN (Reason: anxiety) Qty: 1 0RF Rx Instructions: Please take 30 mins-1hr prior to coming in for procedures, to reduce anxiety. lorazepam [Ativan] 1 mg tablet 1 mg PO DAILY PRN (Reason: anxiety) Qty: 1 0RF Rx Instructions: give 1-2 hours prior to arrival time at hospital for procedure. May make pt very drowsy ketoconazole 2 % cream 1 applic topical BID Discontinued polyethylene glycol 3350 17 gram/dose powder 238 g PO ONCE Qty: 238 0RF Rx Instructions: take per colonoscopy instructions bisacodyl [Dulcolax (bisacodyl)] 5 mg tablet,delayed release (DR/EC) 5 mg PO ONCE Qty: 4 0RF Rx Instructions: take per colonoscopy instructions Discharge Instructions Additional Instructions: DSU Colonoscopy Post- Op Instructions Instructions for Everyone who is given Anesthesia: For your safety, please do the following for the next twenty-four (24) hours: *Do Not operate a motor vehicle (car, truck, motorcycle, etc.) *Do Not drink alcoholic beverages or use any recreational drugs for the first 24 hours or while taking pain medications. The medications in your body may have a reaction that can be dangerous. *Do Not make any important decisions or sign any important papers. Findings: no ASA/NSAID's for 14 days Follow up: repeat in 1 yr time 1. No lifting over 20 pounds or strenuous activity for the first 24 hours after your procedure. After 24 hours there are no restrictions on your activity but you may feel fatigued for a few days. 2. After you arrive home you may have a light meal and return to your normal diet as you can tolerate it without feeling sick to your stomach. 3. You may have a bloated, gaseous feeling in your belly (abdomen) after a colonoscopy. Passing gas and belching will help. Walking or lying down on your left side with your knees flexed may relieve the discomfort. Call the office at [phone] (Office) or [phone] (Hospital) right away if you notice any of the following: a.Vomiting of blood or ?coffee ground stools?. b.Rectal bleeding 1Tbsp, blood clots or continuous bleeding. c.Severe belly (abdominal) pain. d.A hard distended belly (abdomen) and an inability to pass gas. 4. Please don?t expect to have a normal BM (bowel movement) for 2-3 days after your procedure. 5. If there are questions regarding the findings of your procedure, please contact your doctor 6. If you are unable to contact your doctor with a problem, contact the hospital at [phone]. 7. Continue all your regular medications unless directed otherwise. I understand the above instructions and have no questions. Signature of Patient or Adult Escort Name of Responsible Adult Escort Signature of Nurse Date/Time Activity:: see above Diet:: see above Discharge Orders Discharge Orders: Discharge Order (Routine); Ordered 08/10/22 Ordered By: Salud Johnson
--- NOTE | 2022-08-10 11:00 | COLE_ITS ---
Colonoscopy Report Date of procedure: 08/11/22 Pre-op diagnosis general: Villous adenoma of rectum/family hx of crc Post-op diagnosis procedure note: same (ear wax removal/toe nail clipping/vaccine addministraiton/blood draw/CE & polyp removal) Procedure: Toenail trimming/administration of vaccines/routine blood draw/removal of earwax from bilateral ears/colonoscopy and polypectomy Surgeon: Salud Johnson Anesthesia Type: General LMA/ETT Estimated blood loss (mL): 1 Pathology: other Complications: None Disposition: PACU Prep: Miralax/Dulcolax Retraction Time: 15 minutes Procedure Description: After informed consent was obtained the patient was taken to the procedure room and placed in a left decubitous position. Monitors were applied and a time out was done. The patients name, date of , procedure, allergies to medications and metal in their body was reviewed. The patient was then sedated. Once he is sedated and comfortable, phlebotomy was done by the RNs. He was also given his COVID-vaccine update and yearly flu vaccine update. Please see RN notes for lot numbers. Attention then was turned to trimming his toenails. He has severe onychomycoses. Toenail trimming was carried out. Attention then was turned to administration of 6.5% hydrogen peroxide solution to the ears and then bulb suction. A significant amount of material was removed from both the ears. It was they were then packed with gauze. He tolerated all of these procedures well. Attention is then turned to the colonoscopy. Once sedated and comfortable a rectal exam was done. External exam was normal. Internal exam revealed a normal sphincter tone and no palpable masses. The scope was then introduced and retrofelexed. No internal hemorrhoids were identified. The scope was then advanced to the hepatic flexure. Once we get to the right flexure there is significant looping of the scope in the cecum, and difficulty passing the scope into the ascending colon.. Patient had a colonoscopy to the cecum a year ago and it was normal. I did not feel it was worth the morbidity to attempt maneuvers to advance the scope. He is noted to have recurrence of the polyp in the rectum and we then we moved on to address this area. The prep was BPS 3 in all segments for a total of 9. The scope was then slowly retracted over 15 minutes back into the rectum. He has a history of a villous adenoma in the rectum. This area has been previously tattooed. There is a recurrence of this area today. Is a flat 1 cm irregularly shaped polyp. It is removed with a cold snare and then cauterized. There is no bleeding not ed. Specimens retrieved. There were no other polyps noted today. There are no diverticula noted today. The patient was woken up and taken back to Same day surgery in stable condition. Performing the 5 aforementioned procedures did take approximately 60 minutes for this patient today. The patient tolerated the procedure well and there were no immediate complications. Follow up: The patient should follow up in 1 years unless they develop changes in bowel habits or other new gastrointestinal complaints.
--- NOTE | 2022-08-10 11:28 | ANES.PREOP_ITS ---
General Info Date of Service Date Performed: 08/10/22 Height: 5 ft 11 in Weight: 86 kg Body Mass Index (BMI): 26.4 Surgical Procedure: Operation Date: 08/11/22 07:40 Proposed Procedure Side Surgeon p Colonoscopy DO axel Traylor Trimming of Toenails Althea Barcenas DPM Meds Allergies and Home Medications Allergies Allergy/AdvReac Type Severity Reaction Status Date / Time No Known Allergies Allergy Verified 08/03/22 09:12 Home Medication Medication Instructions Recorded lorazepam 2 mg tablet (Ativan) 2 mg PO ONCE PRN anxiety #1 tab 08/03/19 ketoconazole 2 % topical cream 1 applic topical BID 02/07/21 lorazepam 1 mg tablet (Ativan) 1 mg PO DAILY PRN anxiety #1 tab 08/03/22 Current Visit Medications: Current Medications Generic Name Dose Route Start Last Admin Trade Name Freq PRN Reason Stop Dose Admin COVID-19 Vaccine mRNA LNP-S (PFR) (PF) 30 mcg 08/11/22 08:00 Covid-19 Vacc, Bv ([employer])/Pf 30 Mcg/0.3 Ml Dose IM 08/11/22 08:01 .ONCE ONE Hyoscyamine Sulfate 0.125 mg 08/10/22 10:58 Hyoscyamine 0.125 Mg Sl/Oral/Chew SL DIRECTED PRN Influenza Virus Vaccine Quadrival 240 mcg 08/11/22 08:00 Flu Vaccine Qs Hd 2021- (65yr Up)/Pf 240 Mcg/0.7 Ml Syr IM 08/11/22 08:01 .ONCE ONE Ondansetron HCl 4 mg 08/10/22 10:58 Ondansetron 4 Mg/2 Ml Vial IVP Q4H PRN PRN Nausea / Vomiting PFSH Active Problems Active Problems: Problem Status Onset Code Excess ear wax H61.20 Villous adenoma of rectum D37.5 Urinary incontinence R32 Squamous cell carcinoma Prediabetes R73.03 Screening for colon cancer Z12.11 Myalgia M79.10 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 Colon polyps K63.5 Strain of right hip S76.011A Neoplasm of unspecified behavior of bone, soft tissue, and skin D49.2 Skin lesion L98.9 Seborrheic keratoses L82.1 Impaired fasting glucose R73.01 Intellectual disability F79 PRINCE (dyspnea on exertion) R06.09 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 Medical History Medical History (Updated 08/06/22 @ 09:39 by Salud Johnson DO) Family hx of colon cancer Partial blindness Sessile colonic polyp Surgical History Surgical History (Updated 07/02/21 @ 14:17 by Ashley Crespo RN) History of colonoscopy History of colonoscopy with polypectomy (~06/20/21) Tobacco Smoking/Tobacco Use Status: Never Alcohol Alcohol Intake: never Substance Use Substance use: Never Substance use type: does not use Vital Signs and Lab Results Lab Results Blood Type / Crossmatch: No Data to Display Complete Blood Count: No Data to Display Complete Metabolic Panel: No Data to Display Liver Function Panel: No Data to Display Coagulation Panel: No Data to Display Cardiac Panel: No Data to Display Arterial Blood Gas: No Data to Display Venous Blood Gas: No Data to Display Pancreas Panel: No Data to Display Thyroid Panel: No Data to Display Infectious Disease: No Data to Display Blood Cultures: No Data to Display Toxicology Panel: No Data to Display Anesthesia Assessment and Plan Anesthesia History Personal History: Delayed Emergence Family History: No Family History of Anesthesia Complications Exercise Tolerance Exercise Tolerance: Metabolic Equivalents>4 Cardiac & Pulmonary Exam Cardiac Exam: Unable to Assess Pulmonary Exam: Unable to Assess Implantable Cardiac Device Does patient have a Pacemaker or an ICD?: No Airway Exam Known Difficult Airway: No Mallampati Class: Unable to Assess Mouth Opening: Narrow (< 3cm) Thyromental Distance: Less than 3 cm Neck Range of Motion: Limited ROM Neck Circumference: Normal Teeth Condition: Edentulous ASA Classification ASA Score: ASA 3 Emergency Case?: No NPO Status NPO Status: Unable to Assess Anesthesia Plan Resuscitation Status: Full Code Anesthesia Technique: General Anesthesia Airway Planned: Natural Airway Monitors Used: Standard Monitors Preoperative Comments:: 71 yo developmentally delayed male for colo. last screening was 2020 with adenoma, tubulovillious adenoma. He is extremely fearful of needles. He received 30 mg PO versed prior to his previous colo and his caregiver states he was extremely sleepy well into the night and took a long time to get discharged, his postop note reflects this as well. Given his fear of needles additional labs, vaccines have been ordered by the PCP per caregiver. Last colo: - received loraz 2 mg at home, MKO in preop, followed by ketamine 400 mg IM preop, IV started and colo/labs performed with prop gtt. Caregiver state that t he MKO worked well, but he wouldn't take the 2nd one. felt that he wasn't as drowsy as the oral midaz, but didn't love the glassed over look that he had. Consent was preformed over the phone. [place] denies any major health history changes.
[2022-08-10 11:44] VITALS: BMI 26.4
[2022-08-11] VITALS (8 sets, daily range): BP systolic 126–151; BP diastolic 70–98; PULSE 16–78; RESP 11–16; TEMP 36.2–36.9; TEMPC 36.3; O2SAT 95–98; BMI 27.6
--- NOTE | 2022-08-11 07:09 | ANES.PREOP_ITS ---
General Info Date of Service Date Performed: 08/11/22 Height: 5 ft 11 in Weight: 89.7 kg Body Mass Index (BMI): 27.6 Surgical Procedure: Operation Date: 08/11/22 07:40 Proposed Procedure Side Surgeon DO axel Weiss Debridement of Nails Althea Barcenas DPM Meds Allergies and Home Medications Allergies Allergy/AdvReac Type Severity Reaction Status Date / Time No Known Allergies Allergy Verified 08/11/22 06:25 Home Medication Medication Instructions Recorded lorazepam 2 mg tablet (Ativan) 2 mg PO ONCE PRN anxiety #1 tab 08/03/19 ketoconazole 2 % topical cream 1 applic topical BID 02/07/21 lorazepam 1 mg tablet (Ativan) 1 mg PO DAILY PRN anxiety #1 tab 08/03/22 Current Visit Medications: Current Medications Generic Name Dose Route Start Last Admin Trade Name Freq PRN Reason Stop Dose Admin COVID-19 Vaccine mRNA LNP-S (PFR) (PF) 30 mcg 08/11/22 08:00 Covid-19 Vacc, Bv (Pfizer)/Pf 30 Mcg/0.3 Ml Dose IM 08/11/22 08:01 .ONCE ONE Hyoscyamine Sulfate 0.125 mg 08/10/22 10:58 Hyoscyamine 0.125 Mg Sl/Oral/Chew SL DIRECTED PRN Ringer's Solution 1,000 mls @ 80 mls/hr 08/11/22 06:00 IV 09/09/22 23:59 INFUSION [facility] IV Miscellaneous Supplies 1 each 08/11/22 06:00 Iv Access IV 09/09/22 23:59 DIRECTED [facility] Influenza Virus Vaccine Quadrival 240 mcg 08/11/22 08:00 Flu Vaccine Qs Hd 2021- (65yr Up)/Pf 240 Mcg/0.7 Ml Syr IM 08/11/22 08:01 .ONCE ONE Lidocaine/Prilocaine 0 gm 08/11/22 06:00 Lidocaine/Prilocaine Cream 5 Gm Tube TP 08/11/22 16:00 PREOP [facility] Ondansetron HCl 4 mg 08/10/22 10:58 Ondansetron 4 Mg/2 Ml Vial IVP Q4H PRN PRN Nausea / Vomiting Sodium Chloride 0 ml 08/11/22 06:00 Normal Saline Flush 10 Ml Syr IV 09/09/22 23:59 PRN PRN Sodium Chloride 0 ml 08/11/22 06:00 Normal Saline 10 Ml Vial IJ 09/09/22 23:59 DIRECTED PRN Sterile Water 0 ml 08/11/22 06:00 Water,Injection,Sterile 10 Ml Vial IJ 09/09/22 23:59 DIRECTED PRN PFSH Active Problems Active Problems: Problem Status Onset Code Excess ear wax H61.20 Villous adenoma of rectum 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.5 Urinary incontinence R32 Squamous cell carcinoma Prediabetes R73.03 Screening for colon cancer Z12.11 Myalgia M79.10 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 Colon polyps K63.5 Strain of right hip S76.011A Neoplasm of unspecified behavior of bone, soft tissue, and skin D49.2 Skin lesion L98.9 Seborrheic keratoses L82.1 Impaired fasting glucose R73.01 Intellectual disability F79 PRINCE (dyspnea on exertion) R06.09 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 Medical History Medical History Family hx of colon cancer Partial blindness Sessile colonic polyp Surgical History Surgical History History of colonoscopy History of colonoscopy with polypectomy (~06/20/21) Tobacco Smoking/Tobacco Use Status: Never Alcohol Alcohol Intake: never Substance Use Substance use: Never Substance use type: does not use Vital Signs and Lab Results Vital Signs Most Recent Vital Signs in EMR: Most Recent Vital Signs Temp Pulse Resp BP Pulse Ox 36.3 C L 16 L 16 129/70 95 08/11/22 06:15 08/11/22 06:15 08/11/22 06:15 08/11/22 06:15 08/11/22 06:15 Lab Results Blood Type / Crossmatch: No Data to Display Complete Blood Count: No Data to Display Complete Metabolic Panel: No Data to Display Liver Function Panel: No Data to Display Coagulation Panel: No Data to Display Cardiac Panel: No Data to Display Arterial Blood Gas: No Data to Display Venous Blood Gas: No Data to Display Pancreas Panel: No Data to Display Thyroid Panel: No Data to Display Infectious Disease: No Data to Display Blood Cultures: No Data to Display Toxicology Panel: No Data to Display Anesthesia Assessment and Plan Anesthesia History Personal History: Delayed Emergence Family History: No Family History of Anesthesia Complications Exercise Tolerance Exercise Tolerance: Metabolic Equivalents>4 Pertinent Negatives Pertinent Negatives: No Symptoms of GERD, No Major Cardiovascular Symptoms or Complaints, No Major Pulmonary Symptoms or Complaints and No History of CVA/TIA Cardiac & Pulmonary Exam Cardiac Exam: Normal S1/S2 Heart Sounds Pulmonary Exam: Clear Bilateral Breath Sounds Implantable Cardiac Device Does patient have a Pacemaker or an ICD?: No Airway Exam Known Difficult Airway: No Mallampati Class: Unable to Assess Mouth Opening: Narrow (< 3cm) Thyromental Distance: Less than 3 cm Neck Range of Motion: Limited ROM Neck Circumference: Normal Teeth Condition: Edentulous ASA Classification ASA Score: ASA 2 Emergency Case?: No NPO Status NPO Status: NPO Clears >2 hours, Solids >8 hours Anesthesia Plan Resuscitation Status: Full Code Anesthesia Technique: General Anesthesia Airway Planned: Endotracheal Tube Monitors Used: Standard Monitors
[2022-08-11] MEDS: Lactated Ringers 1,000 ML 80 ML IV (07:46)
--- NOTE | 2022-08-11 08:35 | BOWEL_PTH ---
PATIENT: Gera Hubbard LOC: [facility] U#:[id number] AGE/SX: 72/M ROOM: RE08/11/[address]: Salud Johnson : 1950 BED: DIS: 08/11/2022 SPEC #: [id number] RECD: 08/11/22 12:41 STATUS: TATYANA REQ #: [id number] DEEPTI: 08/11/22 08:[address]: Salud Johnson DEPT: Surgical Specimen RECD BY: Virginia Ritter ENTERED: 08/11/22 12:42 SP TYPE: Bowel OTHR DR: Nori Arita Tissues: 1 - BIOPSY BOWEL Procedures: GROSS AND MICRO LEVEL 4 Comments: [id number]
[2022-08-11 09:08] LABS: HCT 43.9 % (40.0-50.0); HGB 14.3 g/dL (13.5-17.5); MCHC 32.6 % (32.0-36.0); MCV 89 fL (80-95); MPV 10.3 fL (8.0-11.0); Platelet Count 209 10^3/uL (130-400); RBC 4.93 10^6/uL (4.36-5.78); RDW 13.7 % (11.8-14.1); RDW-SD 44.2 fL; WBC 4.99 10^3/uL (4.4-10.8)
[2022-08-11 09:34] LABS: ALT 27 U/L (16-63); AST 20 U/L (15-37); Albumin 3.6 g/dL (3.4-5.0); Alkaline Phosphatase 105 U/L (46-116); Anion Gap 8.5 mmol/L (3-11); BUN 9 mg/dL (7-18); Bilirubin, Total 0.8 mg/dL (0.2-1.0); CO2 27.5 mmol/L (21.0-32.0); CREATININE 0.9 mg/dL (0.70-1.30); Calcium 8.5 mg/dL (8.5-10.1); Calculated LDL 92 mg/dL (<100); Chloride 107 mmol/L (98-107); Cholesterol 155 mg/dL (<200); Estimated GFR 91.88 (mL/min/1.73m2); Glucose 111 mg/dL (74-106); HDL Cholesterol 40 mg/dL (40-60); Potassium 3.7 mmol/L (3.5-5.1); Sodium 143 mmol/L (136-145); TSH 1.61 uIU/mL (0.36-3.74); Total Protein 6.6 g/dL (6.4-8.2); Triglyceride 118 mg/dL (<150)
[2022-08-11 09:52] LABS: Hemoglobin A1C 6.4 % (<5.7)
--- NOTE | 2022-08-11 10:58 | W.ANESPOSTOP ---
Postoperative Evaluation Date, Time and Location Date Performed: 08/11/22 Time Performed: 10:58 Patient Location: Day Surgery Unit Vital Signs Most Recent Imported Vital Signs: Most Recent Vital Signs Temp Pulse Resp BP Pulse Ox 36.5 C 59 L 14 134/79 96 08/11/22 10:05 08/11/22 10:05 08/11/22 10:05 08/11/22 10:05 08/11/22 10:05 Most Recent Manually Entered Vital Signs: Adult Blood Pressure: 126/76 Heart Rate: 78 Respirations: 12 Oxygen Saturation (%): 98 Temperature (C): 36.3 C Pain Score (0-10 Scale): 0 Pain Score Most Recent Pain Score: Most Recent Pain Score Pain Level 0 08/11/22 09:20 Assessment Mental Status: Awake (Alert & Oriented to Patient Baseline) Airway and Respiratory Function: Patent airway with normal (patient baseline) respiratory exam Cardiovascular Function: Hemodynamically Stable Hydration Status: Adequately Hydrated Nausea & Vomiting: No Nausea or Vomiting Pain: Pt. Denies Any Pain Peripheral Nerve Block: Patient did not receive a nerve block
== END 2022-08-11 11:36 | disposition home or self-care (01) ==
PROVIDERS: PCP Family Medicine; Visit Provider Surgery
PROC: 0DJD8ZZ Inspection of Lower Intestinal Tract, Via Natural or Artificial Opening Endoscopic (ICD-10-PCS; CPT 45378; principal; 2022-08-11 07:30)
PROC: (CPT 45385; 2022-08-11 07:30)
PROC: (CPT 45385; 2022-08-11 07:30)
DX: Z12.11 Encounter for screening for malignant neoplasm of colon (principal); K62.1 Rectal polyp; Z86.010 Personal history of colon polyps; B35.1 Tinea unguium; H61.23 Impacted cerumen, bilateral; R73.03 Prediabetes; F79 Unspecified intellectual disabilities; Z23 Encounter for immunization; Z20.822 Contact with and (suspected) exposure to COVID-19; Z80.0 Family history of malignant neoplasm of digestive organs; Z13.220 Encounter for screening for lipoid disorders
CPT/HCPCS: 45385; 80053; 80061; 85027; 88305; 90662; 91312; 83036; 84443; J2250

== ENCOUNTER 2022-10-26 13:15 | Outpatient (REF) | payer MEDICARE, MEDICAID, SELFPAY ==
[2022-10-26 12:43] LABS: Bilirubin Negative (Negative); Blood Negative (Negative); Clarity Clear (Clear); Glucose Negative (Negative); Ketones Negative (Negative); Leukocyte Esterase Negative (Negative); Nitrite Negative (Negative); Urobilinogen 0.2 EU/dL (Up TO 0.2)
== END 2022-10-26 13:16 | disposition home or self-care (01) ==
LOC: NCHCN 13:15
PROVIDERS: PCP Family Medicine; Visit Provider Family Medicine
DX: R82.998 Other abnormal findings in urine (principal)
CPT/HCPCS: 81003

== ENCOUNTER → 2023-07-26 10:02 | Outpatient (BNVA) | payer MEDICARE, MEDICAID, SELFPAY | PROVIDERS: PCP Family Medicine; Referring Provider Family Medicine; Visit Provider Surgery | DX: Z12.11 Encounter for screening for malignant neoplasm of colon (principal) | CPT/HCPCS: 99213 ==

== ENCOUNTER 2023-09-21 10:05 | Day surgery (SDC) | payer MEDICARE, MEDICAID, SELFPAY ==
--- NOTE | 2023-09-20 20:15 | W.PM.HP.N ---
Date of service: 09/21/23 Time of Service: 12:21 Assessment and Plan Assessment and plan (1) Pigmented skin lesion suspicious for malignant neoplasm: Status: Acute Assessment and plan: 2. Immunization and blood draw: The patient is due for his vaccination and routine blood work 3. Toenail clipping: Dr. Oglesby is not available so I will just plan on doing this myself. 4. Mccormick lesion: The patient is scheduled to have a biopsy for his right lower extremity lesion. 5. Administer eardrops for earwax removal. The caregivers will bring the medication well. (2) Nail dystrophy: Status: Acute (3) Cognitive changes: Status: Acute (4) Excess ear wax: Status: Acute (5) Villous adenoma of rectum: Status: Acute Assessment and plan: Plan: Colonoscopy w/ general & natural airway. consent is obtained from guardian Informed consent is obtained for the procedural (explained in simple layman's terms that?the pt and/or family could understand) explaining risks vs benefits and alternatives to the procedure and consequences if we do not do the procedure and need/rational for the procedure. Risks include but are not limited to: bleeding, infection, perforation of colon.? This would necessitate emergency surgery to repair the damage w/ possible ostomy; and other associated complications w/ the required surgery. ? Also complications of anesthesia including aspiration, SC/CVA/, inability to complete the procedure. Generally Colonoscopy does not require antibiotics prophylaxis, (6) Urinary incontinence: Status: Acute (7) Squamous cell carcinoma: Status: Acute (8) Facial basal cell cancer: Status: Acute (9) Intellectual disability: Status: Acute (10) Family hx of colon cancer: (11) Partial blindness: History of Present Illness Narrative: Anesthesia: general (without airway) Previous surgical intolerances: No Previous surgical complications: No Pulmonary risk factors: Planned procedure: Yes Sleep apnea risks: No COPD/Asthma/Smoker: Can climb one flight of stairs (12-13 steps) in less than 30 seconds without stopping and without symptoms: Yes The surgery proposed for this patient is: low risk Active cardiac conditions: none Active risk factors: none ASA (acetylsalicylic acid): not used Beta blockers: not used Kidneys: no concerns DM: ?vaccinations- Dr. Willson. [facility]. possible blood work. toe nails. ear wax/drops. biopsy lesion right mccormick -He has had skin cancers in the past ativan 1mg po The patient is a 73-year-old male who presents to the clinic today for routine follow-up. The patient is accompanied by two adult females who contributes to the patient's history. The his caregiver states that the patient has no hematochezia, pain or changes with his bowel habits. He tolerated the bowel prep and anesthesia well last time when he had colonoscopy. The patient denies dysphagia or changes in his weight. He is eating okay. The patient saw his skin doctor, Richy Quezada for a lesion on his mccormick, which is itchy. It comes and goes, but not getting bigger. The adult females are not sure whether the patient has family history of skin cancer. The patient has no issues with his sleep; he is sleeping okay. The patient denies any chest pain but admits having shortness of breath. The patient has some issues with his hearing. The patient is a non-smoker and is classified as a full code. His caregivers have requested for him to receive the COVID-19 and flu vaccines. We will try to touch base with his PCP and see if he is due for any other immunizations Blood work drawn in 2021 lungs: CBC/comp/TSH/lipids/A1c. pending any input from his PCP we would probably just plan on performing the same blood work Review of Systems All systems reviewed & are unremarkable except as noted in HPI and below PFSH All Active Problems Pigmented skin lesion suspicious for malignant neoplasm (Acute) Skin rash (Acute) Pain, foot (Acute) Nail dystrophy (Acute) Camptocormia (Acute) Cognitive changes (Acute) Excess ear wax (Acute ~08/11/22) Villous adenoma of rectum (Acute ~08/11/22) 06/20/2021 Urinary incontinence (Acute) Squamous cell carcinoma (Acute) Screening for colon cancer (Acute) Myalgia (Acute) Tubulovillous adenoma (Acute) Colon polyps (Acute) Strain of right hip (Acute) Neoplasm of unspecified behavior of bone, soft tissue, and skin (Acute) Skin lesion (Acute) Seborrheic keratoses (Acute) Impaired fasting glucose (Acute) Intellectual disability (Acute) PRINCE (dyspnea on exertion) (Acute) Facial basal cell cancer (Acute) Medical History Sessile colonic polyp Partial blindness Family hx of colon cancer Surgical History History of colonoscopy with polypectomy (~08/11/22) 06/20/2021 History of colonoscopy Family History Other Cancer Social History Smoking/Tobacco Use Status: Never Smoking risk assessment performed?: Yes Alcohol Intake: never Drug use: Never Substance use type: does not use Housing: house Additional Social history: Lives with care provider May Wen. Per caregiver has extreme fear of doctors and medical providers. Proivder states to keep things as low samano as possible and not high energy. Meds Allergies and Home Medications Allergies Allergy/AdvReac Type Severity Reaction Status Date / Time No Known Allergies Allergy Verified 09/21/23 10:32 Home Medications Medication Instructions Recorded Confirmed Type rosuvastatin 10 mg tablet 10 mg PO DAILY 03/10/23 09/21/23 History lorazepam 1 mg tablet (Ativan) 1 mg PO DIRECTED PRN anxiety #1 07/26/23 09/21/23 Rx tab Exam Narrative Exam Narrative: PHYSICAL EXAM HYDRATION: Well hydrated HEAD, EYES, EARS, NECK, THROAT: Head is normocephalic, pupils equal, round, reactive to light and accommodation, ocular movement intact, sclera clear and no jaundice. ?Dentition intact. No sore throat.? No jaw pain. No thrush NECK: no lymphadenopathy.? Trachea midline.? Neck supple.? No JVD LUNGS: normal respiration/normal chest excursion. ?Clear to auscultation bilaterally. ?No wheeze. ?HEART: Regular rate and rhythm. no murmurs EXTREMITY: No edema or cyanosis.? no leg pain, redness, swelling.? ABDOMEN: soft and non-tender to palpation.? Normal bowel sounds.? Results Labs 09/21/23 11:11 09/21/23 11:11 Time Spent Time spent with Patient: 40-54 minutes Time was spent: preparing to see the patient(eg.review tests), obtaining and/or reviewing separately otained hiistory, ordering medications,tests, procedures, referring, communicating with other health resident care associate, indepentently interpreting results, counseling the patient and care coordination
--- NOTE | 2023-09-20 20:27 | PDOC.DSDIS_ITS ---
Date of service: 09/21/23 Time of Service: 12:22 Discharge Plan Disposition Patient Disposition: Home Condition: Good Discharge Details Reason For Visit: colon scope/toel nail cliping/biopsy/vaccines Attending Provider: Salud Johnson Primary Care Provider: Nori Arita Home Meds and New Rx's Prescriptions: Continued lorazepam [Ativan] 1 mg tablet 1 mg PO DIRECTED PRN (Reason: anxiety) Qty: 1 0RF Rx Instructions: 1 hour prior to arrival time at hospital rosuvastatin 10 mg tablet 10 mg PO DAILY Discontinued bisacodyl [Dulcolax (bisacodyl)] 5 mg tablet,delayed release (DR/EC) 5 mg PO ONCE Qty: 4 0RF Rx Instructions: Take per colonoscopy instructions provided by ordering providers office polyethylene glycol 3350 17 gram/dose powder 17 g PO ONCE Qty: 238 0RF Rx Instructions: Take per colonoscopy instructions provided by ordering providers office Discharge Instructions Additional Instructions: DSU Colonoscopy Post- Op Instructions Instructions for Everyone who is given Anesthesia: For your safety, please do the following for the next twenty-four (24) hours: *Do Not operate a motor vehicle (car, truck, motorcycle, etc.) *Do Not drink alcoholic beverages or use any recreational drugs for the first 24 hours or while taking pain medications. The medications in your body may have a reaction that can be dangerous. *Do Not make any important decisions or sign any important papers. Findings: colon: polyp x1 Follow up: 7 days for biopsy results 1. No lifting over 20 pounds or strenuous activity for the first 24 hours after your procedure. After 24 hours there are no restrictions on your activity but you may feel fatigued for a few days. 2. After you arrive home you may have a light meal and return to your normal diet as you can tolerate it without feeling sick to your stomach. 3. You may have a bloated, gaseous feeling in your belly (abdomen) after a colonoscopy. Passing gas and belching will help. Walking or lying down on your left side with your knees flexed may relieve the discomfort. Wound Care Instruction Pain Control Use ice!? Ice keeps the swelling down and swelling is what causes pain.? Never apply ice directly to the skin.? Wrap it in a towel or cloth.? Apply ice 20 minutes on and 20 minutes off for pain control.? Use as needed. Take Tylenol 500 mg by mouth with food every 4 hours as needed for pain. Or ibup rofen 600 mg by mouth with food every 6 hours as needed for pain.? Do not take Tylenol if you have a history of heavy drinking, hepatitis C or liver problems.? Do not take ibuprofen if you have a history of stomach ulcers/problems, bleeding problem or kidney issues. ? Always wash your hands before touching your incision. ? Keep the incision clean, dry, and out of water, keep the incision out of water. ? Do not to pick at the scabs. Scabs help protect the wound. ? You can take a shower in 24 hours and wash the incision with soap and water. Pat dry/don?t scrub. It?s OK to wash around the incision. But don?t spray water directly on it. ? Pat stitches dry if they get wet. Don't rub. ? Check the incision site daily for pain, redness, drainage, swelling, or separation of the incision edges. ? Make sure any clothing that touches the incision is loose-fitting. This will prevent rubbing. If the incision is on the head, keep your child from wearing caps or other head coverings. These may rub against the incision. As your incision heals, the skin may appear pink or red. It may also feel slightly bumpy or raised. This is called a healing ridge. Over time, the color should fade and the raised skin will become less noticeable. When to seek medical care Call your healthcare provider right away if you have any of these: ? More pain, redness, swelling, bleeding, or foul-smelling discharge around the incision area ? Fever of 101?F (38.3?C) or higher, or as directed by your child's healthcare provider ? Shaking chills ? Vomiting or nausea that doesn?t go away ? Numbness, coldness, or tingling around the incision area, or changes in skin color ? Opening of the sutures or wound -Stitches or ara that come apart or fall out or surgical tape falls off before 7 days, or as directed by your healthcare provider ?[facility]: [phone] Call the office at [phone] (Office) or [phone] (Hospital) right away if you notice any of the following: a.Vomiting of blood or ?coffee ground stools?. b.Rectal bleeding 1Tbsp, blood clots or continuous bleeding. c.Severe belly (abdominal) pain. d.A hard distended belly (abdomen) and an inability to pass gas. 4. Please don?t expect to have a normal BM (bowel movement) for 2-3 days after your procedure. 5. If there are questions regarding the findings of your procedure, please contact your doctor 6. If you are unable to contact your doctor with a problem, contact the hospital at [phone]. 7. Continue all your regular medications unless directed otherwise. I understand the above instructions and have no questions. Signature of Patient or Adult Escort Name of Responsible Adult Escort Signature of Nurse Date/Time Stand Alone Forms: Anesthesia Discharge [place]en Wilson (DSU) Activity:: see above Remove Dressings/Wound Care:: 24 hours Shower/Bathe:: 24 hours Diet:: see above Discharge Orders Discharge Orders: Discharge Order (Routine); Ordered 09/21/23 Ordered By: Salud Johnson DS: Diagnosis Discharge Diagnosis (1) Pigmented skin lesion suspicious for malignant neoplasm: Status: Acute (2) Nail dystrophy: Status: Acute (3) Cognitive changes: Status: Acute (4) Excess ear wax: Status: Acute (5) Villous adenoma of rectum: Status: Acute Asessment and Plan: The patient is seen and examined after their colonoscopy.? The patient has been able to pass gas.? They are not having abdominal pain.? They have been able to tolerate liquids and a snack.? They do not have any nausea or vomiting.? They are not having any chest pain or shortness of breath.??? They are not having any rectal bleeding. Their vital signs have been stable-see nursing notes. We discussed findings during their colonoscopy, and any biopsies that were done/polyps that were removed. The patient will be sent a letter with any biopsy results, and when to repeat the colonoscopy.-see discharge instructions. Patient was given explicit instructions to follow-up regarding colonoscopy-refer to discharge instructions.? We reviewed resumption of medications. Patient verbalized understanding and discharged in stable and satisfactory condition- See nursing notes. (6) Urinary incontinence: Status: Acute (7) Squamous cell carcinoma: Status: Acute (8) Facial basal cell cancer: Status: Acute (9) Intellectual disability: Status: Acute (10) Family hx of colon cancer: (11) Partial blindness: (12) Onychomycosis: Status: Acute
--- NOTE | 2023-09-20 20:31 | W.COLOREPORT ---
Date of service: 09/21/23 Time of Service: 12:33 Colonoscopy Report Date of procedure: 09/21/23 Pre-op diagnosis general: villous adenoma of rectum/family hx of CRC Post-op diagnosis procedure note: other (polyp) Surgeon: Salud Johnson Anesthesia Type: General:No Airway Estimated blood loss (mL): 1 Pathology: other Complications: None Disposition: same day Prep: Miralax/Dulcolax Retraction Time: 10 Procedure Description: After informed consent was obtained the patient was taken to the procedure room and placed in a left decubitous position. Monitors were applied and a time out was done. The patients name, date of , procedure, allergies to medications and metal in their body was reviewed. The patient was then sedated. Once sedated and comfortable a rectal exam was done. External exam was normal. Internal exam revealed a normal sphincter tone and no palpable masses. The prostate normal. The scope was then introduced and retrofelexed. No internal hemorrhoids were identified. The scope was then advanced to the cecum without patient just describes he has had difficulty. The TI and appendiceal orifice were identified. The prep was BBPS 3 in all segments for total of 9. The scope was then slowly retracted over 10 minutes back into the rectum. He had pedunculated 0.75 cm polyp at 90 cm. This is removed with a cold snare. No clip is placed. The specimen is retrieved and no bleeding is noted. The site of the previous villous adenomas was identified in the rectum by tattoo and scarring. There is no signs of any recurrence in the rectum. . The scope was removed and the patient was woken up and taken back to Same day surgery in stable condition. The patient tolerated the procedure well and there were no immediate complications. Follow up: The patient should follow up in 3 years, pathology pending, unless they develop changes in bowel habits or other new gastrointestinal complaints.
--- NOTE | 2023-09-20 20:31 | W.PM.OP ---
Date of service: 09/21/23 Time of Service: 12:39 Operative Note Operative Note DATE OF PROCEDURE: 09/21/23 PRE-OP DIAGNOSIS: history of skin cancer/suspicious skin lesion RLE/onychomycosis/ excessive cerumen POST-OP DIAGNOSIS: same PROCEDURE: biopsy RLE skin lesion toe nail clipping Instillation of eardrops Vaccinations SURGEON: Salud Johnson ANESTHESIA TYPE: General:No Airway Refer to Anesthesia Record ESTIMATED BLOOD LOSS: 1 PATHOLOGY: other COMPLICATIONS: None Patient was transported to: same day Procedure Description: Informed consent is obtained from patient's guardian explaining risks and benefits of the procedure including but not limited to: Anesthesia, bleeding, infections, scarring, reaction to medications, and need for removal of more tissue. Patient is in the supine position. The area of the right lower extremity is attended to first. Is prepped and draped in the usual sterile fashion using a ChloraPrep scrub solution. Is infiltrated with 5 cc of 1% lidocaine plain. A 1 x 0.5 cm of tissue is taken at the 9 o'clock position on the lesion. No bleeding is noted. The defect is closed with 2 sutures of 3-0 nylon. Band-Aid is applied. Patient tolerated the procedure well. Toenails were then clipped The Debrox was then instilled into his ears per blood donor recruiter instructions and cotton balls were placed Vaccines were given by me RN. Please see the MAR. Patient will follow-up for biopsy results and further disposition of the lesion she.
--- NOTE | 2023-09-21 08:51 | ANES.PREOP_ITS ---
General Info Date of Service Date Performed: 09/21/23 Height: 5 ft 11 in Weight: 89.7 kg Body Mass Index (BMI): 27.6 Surgical Procedure: Operation Date: 09/21/23 10:55 Proposed Procedure Side Surgeon p Colonoscopy Salud Johnson DO s Biopsy Lesion Lower Extremity Right Salud Johnson DO Meds Allergies and Home Medications Allergies Allergy/AdvReac Type Severity Reaction Status Date / Time No Known Allergies Allergy Verified 09/20/23 12:16 Home Medication Medication Instructions Recorded rosuvastatin 10 mg tablet 10 mg PO DAILY 03/10/23 lorazepam 1 mg tablet (Ativan) 1 mg PO DIRECTED PRN anxiety #1 07/26/23 tab Current Visit Medications: Current Medications Generic Name Dose Route Start Last Admin Trade Name Freq PRN Reason Stop Dose Admin COVID-19 Vaccine mRNA LNP-S (MOD) (PF) 50 mcg 09/21/23 10:45 Covid Vaccine 23-24(12up)(Andu)/Pf 50 Mcg/0.5 Ml Syr IM 09/21/23 10:46 .ONCE ONE Carbamide Peroxide 15 ml 09/21/23 06:00 Carbamide Peroxide 15 Ml Btl OT 09/21/23 23:59 DIRECTED TOM Diphtheria/Pertussis/Tetanus Vacc 0.5 ml 09/21/23 10:45 Diphth, Pertuss, Tet Vaccine 0.5 Ml Vial IM 09/21/23 10:46 .ONCE ONE Hyoscyamine Sulfate 0.125 mg 09/21/23 00:43 Hyoscyamine 0.125 Mg Sl/Oral/Chew SL 10/21/23 00:42 DIRECTED PRN Ringer's Solution 1,000 mls @ 80 mls/hr 09/21/23 06:00 IV 10/20/23 23:59 INFUSION TOM IV Miscellaneous Supplies 1 each 09/21/23 06:00 Iv Access IV 10/20/23 23:59 DIRECTED TOM Influenza Virus Vaccine Quadrival 60 mcg 09/21/23 10:45 Flu Vaccine Qs 2022- (6mos Up)/Pf 60 Mcg/0.5 Ml Syr IM 09/21/23 10:46 .ONCE ONE Ondansetron HCl 4 mg 09/21/23 00:43 Ondansetron 4 Mg/2 Ml Vial IVP 10/21/23 00:42 Q4H PRN PRN Nausea / Vomiting Sodium Chloride 0 ml 09/21/23 06:00 Normal Saline Flush 10 Ml Syr IV 10/20/23 23:59 PRN PRN Sodium Chloride 0 ml 09/21/23 06:00 Normal Saline 10 Ml Vial IJ 10/20/23 23:59 DIRECTED PRN Sterile Water 0 ml 09/21/23 06:00 Water,Injection,Sterile 10 Ml Vial IJ 10/20/23 23:59 DIRECTED PRN PFSH Active Problems Active Problems: Problem Status Onset Code Pigmented skin lesion suspicious for malignant neoplasm L81.9 Skin rash R21 Pain, foot M79.673 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 Cognitive changes R41.89 Excess ear wax ~08/11/22 H61.20 Villous adenoma of rectum ~08/11/22 D37.5 Urinary incontinence R32 Squamous cell carcinoma Screening for colon cancer Z12.11 Myalgia M79.10 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 Colon polyps K63.5 Strain of right hip S76.011A Neoplasm of unspecified behavior of bone, soft tissue, and skin D49.2 Skin lesion L98.9 Seborrheic keratoses L82.1 Impaired fasting glucose R73.01 Intellectual disability F79 PRINCE (dyspnea on exertion) R06.09 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 Medical History Medical History Sessile colonic polyp Partial blindness Family hx of colon cancer Surgical History Surgical History History of colonoscopy with polypectomy (~08/11/22) 06/20/2021 History of colonoscopy Tobacco Smoking/Tobacco Use Status: Never Alcohol Alcohol Intake: never Substance Use Substance use: Never Substance use type: does not use Vital Signs and Lab Results Lab Results 09/21/23 06:00 09/21/23 06:00 Blood Type / Crossmatch: 2 No Data to Display Complete Blood Count: 2 No Data to Display Complete Metabolic Panel: 2 No Data to Display Liver Function Panel: 2 No Data to Display Coagulation Panel: 2 No Data to Display Cardiac Panel: 2 No Data to Display Arterial Blood Gas: 2 No Data to Display Venous Blood Gas: 2 No Data to Display Pancreas Panel: 2 No Data to Display Thyroid Panel: 2 No Data to Display Infectious Disease: 2 No Data to Display Blood Cultures: 2 No Data to Display Toxicology Panel: 2 No Data to Display Anesthesia Assessment and Plan Anesthesia History Personal History: No History of Anesthesia Complications Family History: No Family History of Anesthesia Complications Exercise Tolerance Exercise Tolerance: Metabolic Equivalents>4 Cardiac & Pulmonary Exam Cardiac Exam: Normal S1/S2 Heart Sounds Pulmonary Exam: Clear Bilateral Breath Sounds Implantable Cardiac Device Does patient have a Pacemaker or an ICD?: No Airway Exam Known Difficult Airway: No Mallampati Class: Unable to Assess Mouth Opening: Narrow (< 3cm) Thyromental Distance: Less than 3 cm Neck Range of Motion: Limited ROM Neck Circumference: Normal Teeth Condition: Edentulous ASA Classification ASA Score: ASA 2 Emergency Case?: No NPO Status NPO Status: NPO Clears >2 hours, Solids >8 hours Anesthesia Plan Resuscitation Status: Full Code Anesthesia Technique: General Anesthesia Airway Planned: Natural Airway Monitors Used: Standard Monitors Preoperative Comments:: 73 yo developmentally delayed male for colo. last screening was 2021 with adenoma, tubulovillious adenoma. He is extremely fearful of needles. Given his fear of needles additional labs, vaccines have been ordered by the PCP per caregiver. He has no health history changes in the past few weeks, and his caregivers have no questions at this time. Previous Anes: - 2021 colo, home loraz, MKO melt x 2 (minimal results, likely only had one) followed by IM ketamine 100 mg, IV placed. prop for case. - 2020, Received loraz at home, MKO in preop, followed by ketamine 400 mg IM preop, IV started and colo/labs performed with prop gtt. - 2018, 30 mg PO versed prior to IV placement, he was extremely sleepy well into the night and took a long time to get discharged, his postop note reflects this as well. Consent was preformed over the phone, but will be signed day of procedure. [place] denies any major health history changes since his last visit. denies any cardiac, pulmonary symptoms or indications of GERD.
[2023-09-21 08:54] VITALS: BMI 27.6
[2023-09-21] MEDS: Lactated Ringers 1,000 ML 80 ML IV (11:15)
[2023-09-21 11:24] LABS: HCT 47.8 % (40.0-50.0); HGB 16.2 g/dL (13.5-17.5); MCH 29.2 pg (27.0-33.0); MCHC 33.9 % (32.0-36.0); MCV 86 fL (80-95); MPV 9.7 fL (8.0-11.0); Platelet Count 251 10^3/uL (130-400); RBC 5.54 10^6/uL (4.36-5.78); RDW 13.7 % (11.8-14.1); RDW-SD 43.5 fL; WBC 8.85 10^3/uL (4.4-10.8)
--- NOTE | 2023-09-21 11:34 | BOWEL_PTH ---
PATIENT: Gera Hubbard LOC: [facility] U#:[id number] AGE/SX: 73/M ROOM: RE09/21/[address]: Salud Johnson : 1950 BED: DIS: 09/21/2023 SPEC #: [id number] RECD: 09/21/23 12:55 STATUS: TATYANA REBarby #: [id number] DEEPTI: 09/21/23 11:[address]: Salud Johnson DEPT: Surgical Specimen RECD BY: Virginia Ritter ENTERED: 09/21/23 12:56 SP TYPE: Bowel OTHR DR: Nori Arita Tissues: 1 - BIOPSY BOWEL 2 - SKIN BIOPSY(SHAVE/PUNCH) Procedures: GROSS AND MICRO LEVEL 4 SKIN LEVEL 4 Comments: [id number]
[2023-09-21 11:39] LABS: ALT 30 U/L (16-63); AST 24 U/L (15-37); Albumin 4.3 g/dL (3.4-5.0); Alkaline Phosphatase 140 U/L (46-116); Anion Gap 10.1 mmol/L (3-11); BUN 11 mg/dL (7-18); Bilirubin, Total 0.6 mg/dL (0.2-1.0); CO2 25.9 mmol/L (21.0-32.0); Calcium 9.4 mg/dL (8.5-10.1); Chloride 104 mmol/L (98-107); Estimated GFR 80.47 (mL/min/1.73m2); Glucose 134 mg/dL (74-106); Potassium 4.2 mmol/L (3.5-5.1); Sodium 140 mmol/L (136-145)
[2023-09-21 11:57] LABS: Hemoglobin A1C 6.6 % (<5.7)
[2023-09-21] MEDS: Lidocaine 1% Multi-Dose 10 ML VIAL (12:02)
[2023-09-21 12:07] VITALS: BP 155/72; PULSE 85; RESP 18; TEMP 36.7; O2SAT 98
--- NOTE | 2023-09-21 12:29 | W.ANESPOSTOP ---
Postoperative Evaluation Date, Time and Location Date Performed: 09/21/23 Time Performed: 12:30 Patient Location: Day Surgery Unit Vital Signs Most Recent Imported Vital Signs: Most Recent Vital Signs Temp Pulse Resp BP Pulse Ox 36.7 C 85 18 155/72 H 98 09/21/23 12:07 09/21/23 12:07 09/21/23 12:07 09/21/23 12:07 09/21/23 12:07 Assessment Mental Status: Other (looking around, semi-verbal. ) Airway and Respiratory Function: Patent airway with normal (patient baseline) respiratory exam Cardiovascular Function: Hemodynamically Stable Hydration Status: Adequately Hydrated Nausea & Vomiting: No Nausea or Vomiting Pain: Other Peripheral Nerve Block: Patient did not receive a nerve block Postoperative Comments:: Discussed the variability in IM ketamine response, and that if he swallowed the MKO that it likely was of no to minimal benefit. Discussed that in the future maybe forgoing the MKO, and sticking with straight ketamine IM, but maybe down dosing slightly (did discuss the potential risk of partial dissociation with too low of a ketamine dose). He is still sleeply, but starting to get more interactive (Currently ~1.5 hrs after IM ketamine dose).
== END 2023-09-21 13:09 | disposition home or self-care (01) ==
PROVIDERS: PCP Family Medicine; Visit Provider Surgery
PROC: 0DJD8ZZ Inspection of Lower Intestinal Tract, Via Natural or Artificial Opening Endoscopic (ICD-10-PCS; CPT 45378; principal; 2023-09-21 10:45)
PROC: (CPT 45385; 2023-09-21 10:45)
DX: L98.9 Disorder of the skin and subcutaneous tissue, unspecified (principal); L60.3 Nail dystrophy; Z85.828 Personal history of other malignant neoplasm of skin; Z09 Encounter for follow-up examination after completed treatment for conditions other than malignant neoplasm; B35.1 Tinea unguium; Z23 Encounter for immunization; M79.673 Pain in unspecified foot; H54.7 Unspecified visual loss; F79 Unspecified intellectual disabilities; Z80.0 Family history of malignant neoplasm of digestive organs; D12.4 Benign neoplasm of descending colon
CPT/HCPCS: 45385; 11106; 80053; 85027; 88305; 90686; 91322; 83036; J2405

== ENCOUNTER → 2023-10-04 13:14 | Outpatient (BNVA) | payer MEDICARE, MEDICAID, SELFPAY | PROVIDERS: PCP Family Medicine; Referring Provider Family Medicine; Visit Provider Surgery | DX: L82.1 Other seborrheic keratosis (principal); K63.5 Polyp of colon; I87.321 Chronic venous hypertension (idiopathic) with inflammation of right lower extremity; C44.310 Basal cell carcinoma of skin of unspecified parts of face ==

== ENCOUNTER 2024-07-03 13:01 | Inpatient (IN) | payer MEDICARE, MEDICAID, SELFPAY ==
[2024-07-03 13:06] VITALS: BP 99/61; PULSE 76; RESP 14; TEMP 36.1; O2SAT 95
[2024-07-03] MEDS: Normal Saline 1,000 ML 500 ML IV (14:15)
[2024-07-03] MEDS: Midazolam/Ketamine/Ondansetron (3/25/2MG) 1 TAB 1 EACH SL ×2 (14:34)
[2024-07-03 15:35] LABS: Lactate 0.7 mmol/L (0.6-1.4)
--- NOTE | 2024-07-03 15:35 | DI.RAD_ITS ---
Exam(s) XR PORTABLE CHEST AP EXAM: XR PORTABLE CHEST AP CLINICAL HISTORY: COUGH TECHNIQUE: 2D digital imaging was performed of the chest. One image was obtained. An AP view was ob tained. COMPARISON: No exams were available for comparison FINDINGS: MEDIASTINUM: Normal. HEART: Normal. PULMONARY VASCULATURE: Normal. LUNGS: There is an infiltrate in the right mid lung. PLEURAL SPACE: No pleural effusion or pneumothorax. BONE:Within normal limits for the patient's age. OTHER FINDINGS:Normal. IMPRESSION: Pneumonia seen in the right mid lung. DATA REPOSITORY: RADIATION DOSE DELIVERED:
[2024-07-03 15:40] LABS: Abs Immature Grans 0.05 10^3/uL (0.0-0.06); Absolute Basophil Count 0.07 10^3/uL (0.0-0.2); Absolute Lymphocyte Count 1.64 10^3/uL (1.2-3.4); Absolute Monocyte Count 1.39 10^3/uL (0.1-0.8); Basophils % 0.5 %; Eosinophils % 2.1 %; HCT 36.1 % (40.0-50.0); HGB 11.9 g/dL (13.5-17.5); Immature Grans % 0.3 %; Lymphocytes % 11.4 %; MCH 29.3 pg (27.0-33.0); MCV 89 fL (80-95); MPV 9.9 fL (8.0-11.0); Monocytes % 9.7 %; Platelet Count 283 10^3/uL (130-400); RBC 4.06 10^6/uL (4.36-5.78); RDW 14.1 % (11.8-14.1); RDW-SD 45.9 fL; WBC 14.35 10^3/uL (4.4-10.8)
[2024-07-03 15:41] LABS: Absolute Neutrophil Count 10.91 10^3/uL (1.2-6.7)
[2024-07-03 16:03] LABS: ALT 36 U/L (16-63); AST 21 U/L (15-37); Albumin 3.4 g/dL (3.4-5.0); Alkaline Phosphatase 89 U/L (46-116); Anion Gap 8.7 mmol/L (3-11); BUN 30 mg/dL (7-18); Bilirubin, Total 0.52 mg/dL (0.2-1.0); CO2 27.3 mmol/L (21.0-32.0); CREATININE 1.1 mg/dL (0.70-1.30); Calcium 8.7 mg/dL (8.5-10.1); Chloride 102 mmol/L (98-107); Estimated GFR 71.32 (mL/min/1.73m2); Glucose 115 mg/dL (74-106); NT-proBNP 355 pg/mL (<300); Potassium 4.3 mmol/L (3.5-5.1); Sodium 138 mmol/L (136-145)
[2024-07-03 16:13] LABS: Procalcitonin < 0.1 ng/mL
--- NOTE | 2024-07-03 17:18 | ED.GENADUL_ITS ---
Discharge Plan Disposition Patient Disposition: Admit to [facility] Condition: Stable Discharge Details Chief Complaint: GenMedical Clinical Impression: Pneumonia, Rash, Aspiration into airway Admit Date/Time: 07/03/24 17:28 Admit Provider: Frank Jeffrey Attending Provider: Frank Jeffrey Primary Care Provider: Nori Arita ED Provider: Amrit Don [facility] General Date/Time Provider Initiated Documentation: 07/03/24 13:03 . Limitations to Documentation: altered mental status and physical limitation . Information obtained by: family . HPI Narrative: 74-year-old gentleman with longstanding intellectual disability presents with his caregivers. Patient initially presented to [facility] with concerns for a rash on his bilateral lower extremities. The rash has been present for about a week. Initially on his upper extremities which is clearing, but now has rash on his legs. On evaluation at the [facility], it is determined that the patient did have low blood pressure, and concerns for abnormal breath sounds so was referred to the emergency department for further evaluation. Related Data Home Medications ?Medication ?Instructions ?Recorded ?Confirmed rosuvastatin 10 mg tablet 10 mg PO DAILY 03/10/23 07/03/24 lorazepam 1 mg tablet (Ativan) 1 mg PO DAILY PRN anxiety #1 tab 10/10/23 07/03/24 cetirizine 10 mg tablet 10 mg PO DAILY PRN 06/14/24 07/03/24 ketoconazole 2 % topical cream 1 applic topical DAILY 06/14/24 07/03/24 mirtazapine 7.5 mg tablet 7.5 mg PO QHS 06/14/24 07/03/24 betamethasone dipropionate 0.05 % 1 applic topical BID #45 grams 07/03/24 07/03/24 topical cream Previous Rx's ?Medication ?Instructions ?Recorded lorazepam 1 mg tablet (Ativan) 1 mg PO DAILY PRN anxiety #1 tab 10/10/23 betamethasone dipropionate 0.05 % 1 applic topical BID #45 grams 07/03/24 topical cream Allergies Allergy/AdvReac Type Severity Reaction Status Date / Time No Known Allergies Allergy Verified 07/03/24 13:12 General Stated Complaint: GenMedical MANOJ: 2 Exam Narrative Exam Narrative: Review of Systems: All systems reviewed & are unremarkable except as noted in HPI and below elderly, chronically ill appearing NCAT PERRL, normal conjunctiva RRR course breath sounds on right,no hypoxia Nondistended abdomen bilateral anterior shins with erythematous non blanching confluent patch of rash at baseline neuro status per family Course Vital Signs Vital signs: Vital Signs Temperature 36.1 C L 07/03/24 13:06 Pulse 76 07/03/24 13:06 Respiratory Rate 14 07/03/24 13:06 Blood Pressure 99/61 L 07/03/24 13:06 Pulse Oximetry 95 07/03/24 13:06 Temperature 36.1 C L 07/03/24 13:06 Temperature Source Temporal Artery Scan 07/03/24 13:06 Pulse 76 07/03/24 13:06 Respiratory Rate 14 07/03/24 13:06 Blood Pressure 99/61 L 07/03/24 13:06 Pulse Oximetry 95 07/03/24 13:06 Oxygen Delivery Method Room Air 07/03/24 13:06 Oxygen Flow Rate 0 07/03/24 13:06 Pain Level 0 07/03/24 13:06 Lab/Test Results Lab/Test Results: 07/03/24 15:24 Blood Blood Culture - Pending 07/03/24 14:00 Blood Blood Culture - Pending Laboratory Tests Range/Units 07/03/24 15:24 WBC (4.4-10.8) 10^3/uL 14.35 H RBC (4.36-5.78) 10^6/uL 4.06 L Hgb (13.5-17.5) g/dL 11.9 L Hct (40.0-50.0) % 36.1 L MCV (80-95) fL 89 MCH (27.0-33.0) pg 29.3 MCHC (32.0-36.0) % 33.0 RDW (11.8-14.1) % 14.1 Plt Count (130-400) 10^3/uL 283 MPV (8.0-11.0) fL 9.9 Immature Gran % % 0.3 Neutrophils % % 76.0 Lymphocytes % % 11.4 Monocytes % % 9.7 Eosinophils % % 2.1 Basophils % % 0.5 Nucleated RBC % (0.0-0.3) % 0.0 Absolute Neutrophils (1.2-6.7) 10^3/uL 10.91 H Absolute Lymphocytes (1.2-3.4) 10^3/uL 1.64 Absolute Monocytes (0.1-0.8) 10^3/uL 1.39 H Absolute Eosinophils (0.0-0.7) 10^3/uL 0.30 Absolute Basophils (0.0-0.2) 10^3/uL 0.07 VBG Lactate (0.6-1.4) mmol/L 0.7 Sodium (136-145) mmol/L 138 Potassium (3.5-5.1) mmol/L 4.3 Chloride (98-107) mmol/L 102 Carbon Dioxide (21.0-32.0) mmol/L 27.3 Anion Gap (3-11) mmol/L 8.7 BUN (7-18) mg/dL 30 H Creatinine (0.70-1.30) mg/dL 1.1 Est GFR (CKD-EPI 2020) (mL/min/1.73m2) 71.32 Glucose (74-106) mg/dL 115 H Calcium (8.5-10.1) mg/dL 8.7 Magnesium (1.8-2.4) mg/dL 2.0 Total Bilirubin (0.2-1.0) mg/dL 0.52 AST (15-37) U/L 21 ALT (16-63) U/L 36 Alkaline Phosphatase (46-116) U/L 89 NT-Pro-B Natriuret Pep (<300) pg/mL 355 H Total Protein (6.4-8.2) g/dL 7.0 Albumin (3.4-5.0) g/dL 3.4 Procalcitonin ng/mL < 0.1 Medical Decision Making Emergent evaluation of hypotension and rash. Sent from urgent care for further evaluation. Blood pressure at urgent care was low, but this is improved on arrival in the emergency department there was some concern for possible aspiration pneumonia. Patient presented with family members who provide the history. He has significant cognitive development issues but is at his baseline. He is not hypoxic or having significant increased work of breathing. The rash on his legs is concerning for possible contact dermatitis, petechial lesions. There is no crepitus or concern for infectious etiology there lab work was obtained. His white blood cell count is 14 with a slight shift. Hemoglobin is 11 which is fairly normal for someone his age, but significantly lower than prior values from years ago. Unclear the significance of this drop. Creatinine at baseline. proBNP is slightly elevated. His procalcitonin is negative. Chest x-ray was reviewed and he does have a consolidation of the right lung. This is likely aspiration. Upon discussion with the caregiver, she states that she has noted that he does cough a lot when he eats and he is scheduled for a swallow study next week. Given his concerns for ineffective swallowing and likely ongoing chronic aspiration, he was treated with Unasyn. Patient will be admitted to the hospital for further management of this condition. Medical Records Medical records reviewed: Yes I reviewed the patient's medical records. Lab Data Lab results reviewed: Yes I reviewed the patient's lab results. 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 venous hypertension (Acute) Onychomycosis (Acute) Skin rash (Acute) Pain, foot (Acute) Nail dystrophy (Acute) Camptocormia (Acute) Cognitive changes (Acute) Excess ear wax (Acute ~08/11/22) Urinary incontinence (Acute) Squamous cell carcinoma (Acute) Myalgia (Acute) Tubulovillous adenoma (Acute) Colon polyps (Acute) adenomatous polyp 2022 repeat in 2025 Strain of right hip (Acute) Seborrheic keratoses (Acute) Impaired fasting glucose (Acute) Intellectual disability (Acute) PRINCE (dyspnea on exertion) (Acute) Medical History (Updated 07/03/24 @ 20:52 by Amrit Don MD) History of prediabetes Family history of malignant neoplasm of digestive organs Blindness/low vision History of colon polyps Dyspnea History of squamous cell carcinoma Hyperlipidemia Not for resuscitation Anxiety 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/2021 Facial basal cell cancer Sessile colonic polyp Partial blindness Family hx of colon cancer Surgical History History of colonoscopy with polypectomy (~08/11/22) 06/20/2021 History of colonoscopy (~09/2023) Path sent Family History (Updated 06/14/24 @ 15:47 by Samira Long) Other Cancer Diabetes Heart failure Hypertension Social History Smoking/Tobacco Use Status: Never Smoking risk assessment performed?: Yes Alcohol Intake: never Drug use: Never Substance use type: does not use Housing: house Additional Social history: Lives with care provider Myajagjit Wen. Per caregiver has extreme fear of doctors and medical providers. Proivder states to keep things as low samano as possible and not high energy.
--- NOTE | 2024-07-03 17:31 | W.PM.HP.N ---
Date of service: 07/03/24 Time of Service: 17:31 Assessment and Plan Assessment and plan (1) Skin rash: Status: Acute Assessment and plan: non pruritic (not scratching) no fever no evidence of cellultis (2) Pneumonia: Status: Acute Assessment and plan: suspect aspiration with several home asp events outpatient swallow exam pending, will place for inpatient diet modifications-pureed ceftriaxone/doxy day 1 elevated WBC ? from rash procal < 0.1 blood pressure normal range here, no hypotension observed. scheduled duonebs, albuterol prn (3) Intellectual disability: Status: Acute Assessment and plan: at baseline, requires total care continue mirtazapine at HS discussed with DR Jeffrey History of Present Illness Narrative: went to urgent care for rash, blood pressure reading low so referred to ED for evaluation, no low BP readings in the ED, work up concerning for aspiration pneumonia, ordered unasyn but will change to ceftriaxone/doxy. no fever, rash started on arms, over elbow area, resolving but now on bilateral lower extremities, does not appear to be itchy as patient hasn't attempted to scratch areas, does not appear cellulitis, macular areas. with dry plaques. hospitalist to admit. no oxygen requirements. 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 venous hypertension (Acute) Onychomycosis (Acute) Skin rash (Acute) Pain, foot (Acute) Nail dystrophy (Acute) Camptocormia (Acute) Cognitive changes (Acute) Excess ear wax (Acute ~08/11/22) Urinary incontinence (Acute) Squamous cell carcinoma (Acute) Myalgia (Acute) Tubulovillous adenoma (Acute) Colon polyps (Acute) adenomatous polyp 2022 repeat in 2025 Strain of right hip (Acute) Seborrheic keratoses (Acute) Impaired fasting glucose (Acute) Intellectual disability (Acute) PRINCE (dyspnea on exertion) (Acute) Medical History (Updated 07/03/24 @ 20:52 by Amrit Don MD) History of prediabetes Family history of malignant neoplasm of digestive organs Blindness/low vision History of colon polyps Dyspnea History of squamous cell carcinoma Hyperlipidemia Not for resuscitation Anxiety 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/2021 Facial basal cell cancer Sessile colonic polyp Partial blindness Family hx of colon cancer Surgical History History of colonoscopy with polypectomy (~08/11/22) 06/20/2021 History of colonoscopy (~09/2023) Path sent Family History (Updated 06/14/24 @ 15:47 by Samira Long) Other Cancer Diabetes Heart failure Hypertension Social History Smoking/Tobacco Use Status: Never Smoking risk assessment performed?: Yes Alcohol Intake: never Drug use: Never Substance use type: does not use Housing: house Additional Social history: Lives with care provider Mya Wen. Per caregiver has extreme fear of doctors and medical providers. Proivder states to keep things as low samano as possible and not high energy. Meds Allergies and Home Medications Allergies Allergy/AdvReac Type Severity Reaction Status Date / Time No Known Allergies Allergy Verified 07/03/24 13:12 Home Medications ?Medication ?Instructions ?Recorded ?Confirmed ?Type rosuvastatin 10 mg tablet 10 mg PO DAILY 03/10/23 07/03/24 History lorazepam 1 mg tablet (Ativan) 1 mg PO DAILY PRN anxiety #1 tab 10/10/23 07/03/24 Rx cetirizine 10 mg tablet 10 mg PO DAILY PRN 06/14/24 07/03/24 History ketoconazole 2 % topical cream 1 applic topical DAILY 06/14/24 07/03/24 History mirtazapine 7.5 mg tablet 7.5 mg PO QHS 06/14/24 07/03/24 History betamethasone dipropionate 0.05 % 1 applic topical BID #45 grams 07/03/24 07/03/24 Rx topical cream Exam Narrative Exam Narrative: GEN: awake, alert, tracks me in room HEAD: Normocephalic, atraumatic ENT: Mucous membranes slightly dry, no drainage nose or ears EYES: PERRL, no incteric, non injected NECK: Full ROM, CHEST/RESP: even and unlabored, poor inspiratory effect with dim throughtout, no wheeze/rhonchi/rales, moist non prod cough CARDIOVASCULAR: RRR, no murmur, ABDOMEN: Soft, nontender, no mass. +Bowel sounds EXT: rash anterior and posterior lower ext, no evidence of cellulitis, bilateral upper ext improving, red raised no drainage but crusty. Neuro: at baseline, . Results Labs 07/06/24 06:45 07/06/24 06:45 Labs: Laboratory Results - last 24 hr 07/03/24 15:24 WBC 14.35 H RBC 4.06 L Hgb 11.9 L Hct 36.1 L MCV 89 MCH 29.3 MCHC 33.0 RDW 14.1 Plt Count 283 MPV 9.9 Immature Gran % 0.3 Neutrophils % 76.0 Lymphocytes % 11.4 Monocytes % 9.7 Eosinophils % 2.1 Basophils % 0.5 Nucleated RBC % 0.0 Absolute Neutrophils 10.91 H Absolute Lymphocytes 1.64 Absolute Monocytes 1.39 H Absolute Eosinophils 0.30 Absolute Basophils 0.07 VBG Lactate 0.7 Sodium 138 Potassium 4.3 Chloride 102 Carbon Dioxide 27.3 Anion Gap 8.7 BUN 30 H Creatinine 1.1 Est GFR (CKD-EPI 2020) 71.32 Glucose 115 H Calcium 8.7 Magnesium 2.0 Total Bilirubin 0.52 AST 21 ALT 36 Alkaline Phosphatase 89 NT-Pro-B Natriuret Pep 355 H Total Protein 7.0 Albumin 3.4 Procalcitonin < 0.1 Last Vital Signs Temp 36.1 C L 07/03/24 13:06 Pulse 76 07/03/24 13:06 Resp 14 07/03/24 13:06 BP 99/61 L 07/03/24 13:06 Pulse Ox 95 07/03/24 13:06 Time Spent Time spent with Patient: 55-74 minutes Time was spent: preparing to see the patient(eg.review tests), obtaining and/or reviewing separately otained hiistory, ordering medications,tests, procedures and indepentently interpreting results
--- NOTE | 2024-07-03 18:19 | W.PC.ACHO ---
Registration Status: Primary Language: Preferred Language: ED Information & Data Chief Complaint GenMedical 07/03/24 17:21 Triage Note Pt arrives to ED c/o chronic 07/03/24 13:06 cough + hypotension; c/f pneumonia. Pt has a rash over both his shins and LT forearm/elbow. Rash first noticed 1 wk ago. Rash on pt 's arm is clearing up w/ no trx but rash on his legs is new. No new medications per caregiver. 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) Facial basal cell cancer Sessile colonic polyp Partial blindness Family hx of colon cancer (Last Reviewed 11/23/23 @ 19:17 by Marlon Portillo) History of colonoscopy with polypectomy (~08/11/22) History of colonoscopy (~09/2023) Most Recent Vital Signs Temperature 36.1 C L 07/03/24 13:06 Temperature Source Temporal Artery Scan 07/03/24 13:06 Pulse 76 07/03/24 13:06 Respiratory Rate 14 07/03/24 13:06 Blood Pressure 99/61 L 07/03/24 13:06 Pulse Oximetry 95 07/03/24 13:06 Oxygen Delivery Method Room Air 07/03/24 13:06 Oxygen Flow Rate 0 07/03/24 13:06 Pain Level 0 07/03/24 13:06 Allergies No Known Allergies Allergy (Verified 07/03/24 13:12) Active Medications Generic Name Dose Route Start Last Admin Trade Name Freq PRN Reason Stop Dose Admin Miscellaneous Medication 1 each 07/03/24 15:00 07/03/24 14:34 Midazolam/Ketamine/Ondansetron (3/25/2mg) 1 Tab SL 1 each DIRECTED TOM Administration Miscellaneous Medication 1 each 07/03/24 15:00 07/03/24 14:34 Midazolam/Ketamine/Ondansetron (3/25/2mg) 1 Tab SL 1 each DIRECTED TOM Administration IV IV Catheter Type [Right Hand] Saline Lock IV Catheter Gauge [Right Hand] 20 Diagnostics 08/19/24 Range/Units 15:24 WBC 14.35 H (4.4-10.8) 10^3/uL RBC 4.06 L (4.36-5.78) 10^6/uL Hgb 11.9 L (13.5-17.5) g/dL Hct 36.1 L (40.0-50.0) % MCV 89 (80-95) fL MCH 29.3 (27.0-33.0) pg MCHC 33.0 (32.0-36.0) % RDW 14.1 (11.8-14.1) % Plt Count 283 (130-400) 10^3/uL MPV 9.9 (8.0-11.0) fL Immature Gran % 0.3 % Neutrophils % 76.0 % Lymphocytes % 11.4 % Monocytes % 9.7 % Eosinophils % 2.1 % Basophils % 0.5 % Nucleated RBC % 0.0 (0.0-0.3) % Absolute Neutrophils 10.91 H (1.2-6.7) 10^3/uL Absolute Lymphocytes 1.64 (1.2-3.4) 10^3/uL Absolute Monocytes 1.39 H (0.1-0.8) 10^3/uL Absolute Eosinophils 0.30 (0.0-0.7) 10^3/uL Absolute Basophils 0.07 (0.0-0.2) 10^3/uL VBG Lactate 0.7 (0.6-1.4) mmol/L Sodium 138 (136-145) mmol/L Potassium 4.3 (3.5-5.1) mmol/L Chloride 102 (98-107) mmol/L Carbon Dioxide 27.3 (21.0-32.0) mmol/L Anion Gap 8.7 (3-11) mmol/L BUN 30 H (7-18) mg/dL Creatinine 1.1 (0.70-1.30) mg/dL Est GFR (CKD-EPI 2020) 71.32 (mL/min/1.73m2) Glucose 115 H (74-106) mg/dL Calcium 8.7 (8.5-10.1) mg/dL Magnesium 2.0 (1.8-2.4) mg/dL Total Bilirubin 0.52 (0.2-1.0) mg/dL AST 21 (15-37) U/L ALT 36 (16-63) U/L Alkaline Phosphatase 89 (46-116) U/L NT-Pro-B Natriuret Pep 355 H (<300) pg/mL Total Protein 7.0 (6.4-8.2) g/dL Albumin 3.4 (3.4-5.0) g/dL Procalcitonin < 0.1 ng/mL 07/03/24 15:24 Blood Culture - Pending Blood 07/03/24 14:00 Blood Culture - Pending Blood Intake and Output - 24 Hour Total 07/03/24 13:01 thru 07/03/24 13:06 Weight 68.039 kg Falls Risk Assessment History of Falls Previous History 07/03/24 14:11 Contributing Factors Confusion,Unstable, 07/03/24 14:11 Medications Ambulatory Aids Uses ambulatory device 07/03/24 14:11 Tubes/Lines None 07/03/24 14:11 Gait Evaluation W/any additional score 07/03/24 14:11 Cognition Cognitive impairment 07/03/24 14:11 Fall Total Score 74 07/03/24 14:11 Level of Risk High Risk 07/03/24 14:11 Problems (Last Updated 06/14/24 @ 14:53 by Samira Long) Pneumonia (Acute) Severe sepsis (Acute) Intellectual disability (Acute) v v v v v v v v v Sending and/or Receiving Nurses: Please use comment section below to note any information pertinent to the patient hand-off not included above. Information / Comments: Report taken from ER Nurse Kenzie. Patient brought in for rashes bilateral shins( petechiae like) , he is intellectually disabled., has caregivers 24 hrs at home, but left at this time. All questions answered. Report received from:
[2024-07-03 19:00] VITALS: BP 131/59; PULSE 86; RESP 14; TEMP 36.8; O2SAT 97
[2024-07-03 19:02] VITALS: RESP 16
[2024-07-03 19:08] VITALS: BP 108/68; PULSE 76; RESP 16; TEMP 36.1; O2SAT 95
[2024-07-03] MEDS: cefTRIAXone 1 GM/50 ML BAG IVPB (21:15)
[2024-07-03] MEDS: Normal Saline 1,000 ML 100 ML IV (21:17)
[2024-07-03] MEDS: Normal Saline Flush 10 ML SYR IVP (21:36)
[2024-07-03] MEDS: DOXYCYCLINE 100 MG in Normal Saline 100 ML IVPB (22:26)
[2024-07-04] VITALS (10 sets, daily range): BP systolic 107–121; BP diastolic 50–54; PULSE 77–85; RESP 2–20; TEMP 37.4–37.6; O2SAT 93–97
[2024-07-04] MEDS: Albuterol/Ipratropium 3 ML UPD VIAL UPD ×4 (07:57→20:21)
--- NOTE | 2024-07-04 10:48 | PDOC.CMIN ---
Date of service: 07/04/24 Time of Service: 10:48 Care Management Initial Assmt Initial Assessment Reason for Hospitalization: Pneumonia Functional Status/Living Situation Patient Presentation: Gera is a participant of the IDSS program at [facility]. He lives with a home provider, Mya Wen in [place], [place]. His appointed a public guardian through [employer]; Alberta Hubbard. Per MD: Gera is a 74-year-old male with significant medical history of intellectual disability with barriers with verbal communication, eczema, actinic and seborrheic keratosis, as well as, stasis dermatitis who presents to express care with his caregiver. Caregiver reports that he developed an itchy rash to his left upper extremity 1 week ago and developed a rash to his bilateral anterior shins yesterday. Additionally reports that Gera has a chronic cough, he drools a lot, and it is noted that he has increased cough with eating and drinking. He has swallow study scheduled for 07/12/24 at [facility]. Town of Residence: [place] Resides with: Other (Caregiver) Caregiver/Guardian: Alberta Hubbard Natural Supports: Brother: Tano Hubbard. Caregiver: Marjorie Cesar Employment Status: Disabled (IDDS supports through [facility]) Instrumental Activities of Daily Living (ADLs): Requires support Activities/Hobbies/SocialSupport: Stuffed animals, cartoons Medications Medication Management: No Issues/Barriers identified (Managed by caregiver ) Physical Functioning/Mobility Assistive Device: 30 lb weight loss over last year. Advance Directives Advance Directives: Do you have an Advance Directive: N 02/04/21 13:02 AD On File at [facility]: N 02/04/21 13:02 Date Asked 07/03/24 07/03/24 16:01 AD Date Reviewed COLST On File at [facility] Yes 07/03/24 17:06 COLST Date Scanned 07/03/24 07/03/24 17:06 Code Status Resuscitation Status DNR/DNI Insurance Coverage/Financial Issues Insurance: Medicare Medicaid Care Team Visit Care Team Role Provider Type Nori Arita MD Primary Care Provider [facility] STAFF PHYSICIAN Amrit Don MD Emergency Provider [facility] STAFF PHYSICIAN Frank Jeffrey Admit Provider [facility] STAFF PHYSICIAN Attending Provider Discharge Potential Discharge Needs: PCP F/U Appt Anticipated Barriers to Discharge: None Identified Patient/Family Education Needs: Review discharge instructions, discuss Ask Me Three Transportation: Private vehicle Plan: Anticipate Gera will return home with resumption of services when medically ready, CM following. PFSH All Active Problems (Updated 07/03/24 @ 20:52 by Amrit Don MD) Aspiration into airway (Acute) Rash (Acute) Pneumonia (Acute) Pneumonia (Acute) Severe sepsis (Acute) Tubular adenoma of colon (Acute ~09/2023) Stasis dermatitis of 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 venous hypertension (Acute) Onychomycosis (Acute) Skin rash (Acute) Pain, foot (Acute) Nail dystrophy (Acute) Camptocormia (Acute) Cognitive changes (Acute) Excess ear wax (Acute ~08/11/22) Urinary incontinence (Acute) Squamous cell carcinoma (Acute) Myalgia (Acute) Tubulovillous adenoma (Acute) Colon polyps (Acute) adenomatous polyp 2022 repeat in 2025 Strain of right hip (Acute) Seborrheic keratoses (Acute) Impaired fasting glucose (Acute) Intellectual disability (Acute) PRINCE (dyspnea on exertion) (Acute) Medical History (Updated 07/03/24 @ 20:52 by Amrit Don MD) History of prediabetes Family history of malignant neoplasm of digestive organs Blindness/low vision History of colon polyps Dyspnea History of squamous cell carcinoma Hyperlipidemia Not for resuscitation Anxiety 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/2021 Facial basal cell cancer Sessile colonic polyp Partial blindness Family hx of colon cancer Surgical History History of colonoscopy with polypectomy (~08/11/22) 06/20/2021 History of colonoscopy (~09/2023) Path sent Family History (Updated 06/14/24 @ 15:47 by Samira Long) Other Cancer Diabetes Heart failure Hypertension Social History Smoking/Tobacco Use Status: Never Smoking risk assessment performed?: Yes Alcohol Intake: never Drug use: Never Substance use type: does not use Housing: house Additional Social history: Lives with care provider Mya Rodriguezes. Per caregiver has extreme fear of doctors and medical providers. Proivder states to keep things as low samano as possible and not high energy. SDOH(Care Management) Screening Will the Patient Participate in the Screening?: Unable to obtain Do you worry about having a steady place to live?: no In the past 12 months, have you had to go without electric, gas, oil or water in your home?: no Have you or anyone in your house had to go without enough food to eat?: no Has lack of transportation kept you from medical appointments or from doing things needed for daily living?: no Has anyone in your support network made you feel unsafe for any reason?: no
[2024-07-04] MEDS: Normal Saline Flush 10 ML SYR IVP ×2 (11:04→20:29)
[2024-07-04] MEDS: Enoxaparin 40 MG/0.4 ML SYR SC (11:04)
[2024-07-04] MEDS: DOXYCYCLINE 100 MG in Normal Saline 100 ML IVPB ×2 (11:05→22:47)
--- NOTE | 2024-07-04 17:11 | PGE_ITS ---
Date of Service Date of service: 07/04/24 Time of Service: 17:11 Assessment and Plan Assessment and plan (1) Skin rash: Status: Acute Assessment and plan: non pruritic (not scratching) no fever no evidence of cellultis Less than when he arrived, it was marked now the rash is receding (2) Pneumonia: Status: Acute Assessment and plan: suspect aspiration with several home asp events inpt speech pending diet modifications-pureed ceftriaxone/doxy day 2 scheduled duonebs, albuterol prn (3) Intellectual disability: Status: Acute Assessment and plan: at baseline, requires total care continue mirtazapine at HS discussed with Dr Cee Subjective Subjective Patient reports: no new complaints, tolerating a regular diet, voiding w/o difficulty, bowel movement and afebrile; denies diarrhea, nausea, vomiting or shortness of breath Interval history since last seen: Sitting upright in bed, alert, tracks with eyes, does not respond to questions. Exam Narrative Exam Narrative: Review of Systems: Vital signs and nurses notes reviewed. All systems reviewed & are unremarkable except as noted in HPI and below elderly, chronically ill appearing sitting up in bed, awake, alert NCAT PERRL, normal conjunctiva RRR breath sounds equal bilaterally ,no hypoxia Nondistended abdomen bilateral anterior shins with erythematous non blanching confluent patch of rash, less than markings from yesterday at baseline neuro status per family Objective Last Vital Signs Temp 37.6 C H 07/04/24 15:34 Pulse 81 07/04/24 15:46 Resp 18 07/04/24 15:46 BP 121/54 L 07/04/24 15:34 Pulse Ox 95 07/04/24 15:46 Time Spent with Patient Time Spent with Patient: 25-34 minutes Time was spent: preparing to see the patient(eg.review tests), ordering medications,tests, procedures, referring, communicating with other health direct care supervisor, indepentently interpreting results, counseling the patient and care coordination
[2024-07-04] MEDS: Mirtazapine 15 MG TAB 7.5 MG PO (20:28)
[2024-07-04] MEDS: cefTRIAXone 1 GM/50 ML BAG IVPB (20:31)
[2024-07-05] VITALS (11 sets, daily range): BP systolic 105–112; BP diastolic 36–56; PULSE 62–80; RESP 9–16; TEMP 36.8–37.1; O2SAT 94–98
[2024-07-05] MEDS: Acetaminophen 325 MG TAB 650 MG PO (05:37)
[2024-07-05 07:26] LABS: Anion Gap 6.7 mmol/L (3-11); BUN 18 mg/dL (7-18); CO2 30.3 mmol/L (21.0-32.0); CREATININE 1.1 mg/dL (0.70-1.30); Calcium 8.9 mg/dL (8.5-10.1); Chloride 107 mmol/L (98-107); Estimated GFR 71.32 (mL/min/1.73m2); Glucose 125 mg/dL (74-106); Potassium 4.3 mmol/L (3.5-5.1); Sodium 144 mmol/L (136-145)
[2024-07-05 07:58] LABS: Abs Immature Grans 0.03 10^3/uL (0.0-0.06); Absolute Basophil Count 0.09 10^3/uL (0.0-0.2); Absolute Eosinophil Count 0.42 10^3/uL (0.0-0.7); Absolute Lymphocyte Count 1.28 10^3/uL (1.2-3.4); Absolute Monocyte Count 1.08 10^3/uL (0.1-0.8); Absolute Neutrophil Count 5.54 10^3/uL (1.2-6.7); Basophils % 1.1 %; HCT 35.4 % (40.0-50.0); HGB 11.5 g/dL (13.5-17.5); Immature Grans % 0.4 %; Lymphocytes % 15.2 %; MCH 29.1 pg (27.0-33.0); MCHC 32.5 % (32.0-36.0); MCV 90 fL (80-95); MPV 10.7 fL (8.0-11.0); Monocytes % 12.8 %; Neutrophils % 65.5 %; Platelet Count 231 10^3/uL (130-400); RBC 3.95 10^6/uL (4.36-5.78); RDW 14.5 % (11.8-14.1); RDW-SD 46.9 fL; WBC 8.44 10^3/uL (4.4-10.8)
[2024-07-05] MEDS: Albuterol/Ipratropium 3 ML UPD VIAL UPD ×4 (08:13→19:51)
[2024-07-05] MEDS: Normal Saline Flush 10 ML SYR IVP ×2 (10:31→20:46)
[2024-07-05] MEDS: Enoxaparin 40 MG/0.4 ML SYR SC (10:31)
[2024-07-05] MEDS: DOXYCYCLINE 100 MG in Normal Saline 100 ML IVPB ×2 (10:32→23:00)
--- NOTE | 2024-07-05 13:43 | W.PM.PROGNOT ---
Date of Service Date of service: 07/05/24 Time of Service: 13:43 Assessment and Plan Assessment and plan (1) Skin rash: Status: Acute Assessment and plan: non pruritic (not scratching) no fever no evidence of cellultis Less than when he arrived, it was marked now the rash is receding (2) Pneumonia: Status: Acute Assessment and plan: suspect aspiration with several home asp events inpt speech pending diet modifications-pureed ceftriaxone/doxy day 3 scheduled duonebs, albuterol prn (3) Intellectual disability: Status: Acute Assessment and plan: at baseline, requires total care continue mirtazapine at HS discussed with Dr Cee Subjective Subjective Patient reports: no new complaints, feels better, tolerating a regular diet, voiding w/o difficulty, bowel movement and afebrile; denies flatus, diarrhea, nausea, vomiting or shortness of breath Interval history since last seen: Semi fowlers in bed, no complaints Exam Narrative Exam Narrative: Review of Systems: Vital signs and nurses notes reviewed. All systems reviewed & are unremarkable except as noted in HPI and below elderly, chronically ill appearing sitting up in bed, awake, alert NCAT PERRL, normal conjunctiva RRR breath sounds equal bilaterally ,no hypoxia Nondistended abdomen bilateral anterior shins with erythematous non blanching confluent patch of rash, continues to recede at baseline neuro status per family Objective Last Vital Signs Temp 37.1 C 07/05/24 07:45 Pulse 66 07/05/24 08:21 Resp 16 07/05/24 11:47 BP 108/56 L 07/05/24 07:45 Pulse Ox 98 07/05/24 08:21 Laboratory Results - last 24 hr 07/05/24 06:40 WBC 8.44 RBC 3.95 L Hgb 11.5 L Hct 35.4 L MCV 90 MCH 29.1 MCHC 32.5 RDW 14.5 H Plt Count 231 MPV 10.7 Immature Gran % 0.4 Neutrophils % 65.5 Lymphocytes % 15.2 Monocytes % 12.8 Eosinophils % 5.0 Basophils % 1.1 Nucleated RBC % 0.0 Absolute Neutrophils 5.54 Absolute Lymphocytes 1.28 Absolute Monocytes 1.08 H Absolute Eosinophils 0.42 Absolute Basophils 0.09 Sodium 144 Potassium 4.3 Chloride 107 Carbon Dioxide 30.3 Anion Gap 6.7 BUN 18 Creatinine 1.1 Est GFR (CKD-EPI 2020) 71.32 Glucose 125 H Calcium 8.9 Magnesium 2.0 Time Spent with Patient Time Spent with Patient: 25-34 minutes Time was spent: preparing to see the patient(eg.review tests), ordering medications,tests, procedures, referring, communicating with other health residential child care counselor, indepentently interpreting results, counseling the patient and care coordination
--- NOTE | 2024-07-05 15:34 | NUR.NOTE ---
Nursing Note: Pt combative with cares, including VS, provider made aware.
--- NOTE | 2024-07-05 16:52 | PDOC.CMPRO ---
Date of service: 07/05/24 Time of Service: 16:52 Care Management Progress Note Progress Note Text Progress Note Text: CM updated Guardianship information in Gera's chart. Per CORE BLOWER OPERATOR, anticipate potential discharge tomorrow-CM following. Discharge Potential Discharge Needs: PCP F/U Appt Anticipated Barriers to Discharge: None Identified Patient/Family Education Needs: Review discharge instructions, discuss Ask Me Three Transportation: Private vehicle Plan: Anticipate Gera will return home with resumption of services when medically ready, he will transport via private vehicle with caregiver. CM following. MH Services (Omit if N/A) Current MH Services: [facility] ([facility]. Medical admission. ) Referred to [facility] (ED embedded) rn field case manager?: No SDOH(Care Management) Screening Will the Patient Participate in the Screening?: Unable to obtain Do you worry about having a steady place to live?: no In the past 12 months, have you had to go without electric, gas, oil or water in your home?: no Have you or anyone in your house had to go without enough food to eat?: no Has lack of transportation kept you from medical appointments or from doing things needed for daily living?: no Has anyone in your support network made you feel unsafe for any reason?: no
[2024-07-05] MEDS: Mirtazapine 15 MG TAB 7.5 MG PO (20:44)
[2024-07-05] MEDS: cefTRIAXone 1 GM/50 ML BAG IVPB (20:44)
--- NOTE | 2024-07-06 06:56 | NUR.NOTE ---
Nursing Note: It has been noted over shift that the pt does better with Q2 turns and any position changes when overall pressure is applied. i.e. tucking blanket semi tight, squeezing hands while labs are drawn.
[2024-07-06 07:20] LABS: Abs Immature Grans 0.04 10^3/uL (0.0-0.06); Absolute Basophil Count 0.09 10^3/uL (0.0-0.2); Absolute Eosinophil Count 0.44 10^3/uL (0.0-0.7); Absolute Lymphocyte Count 1.27 10^3/uL (1.2-3.4); Absolute Monocyte Count 1.08 10^3/uL (0.1-0.8); Absolute Neutrophil Count 7.19 10^3/uL (1.2-6.7); Basophils % 0.9 %; Eosinophils % 4.4 %; HCT 39.4 % (40.0-50.0); HGB 12.7 g/dL (13.5-17.5); Immature Grans % 0.4 %; Lymphocytes % 12.6 %; MCH 29.3 pg (27.0-33.0); MCHC 32.2 % (32.0-36.0); MCV 91 fL (80-95); Monocytes % 10.7 %; Platelet Count 257 10^3/uL (130-400); RBC 4.34 10^6/uL (4.36-5.78); RDW 14.2 % (11.8-14.1); RDW-SD 47.7 fL; WBC 10.11 10^3/uL (4.4-10.8)
[2024-07-06 07:31] LABS: Anion Gap 6.4 mmol/L (3-11); BUN 17 mg/dL (7-18); CO2 29.6 mmol/L (21.0-32.0); CREATININE 0.9 mg/dL (0.70-1.30); Calcium 8.9 mg/dL (8.5-10.1); Chloride 105 mmol/L (98-107); Estimated GFR 90.74 (mL/min/1.73m2); Glucose 119 mg/dL (74-106); Magnesium 1.8 mg/dL (1.8-2.4); Potassium 4.1 mmol/L (3.5-5.1); Sodium 141 mmol/L (136-145)
[2024-07-06 07:43] VITALS: PULSE 65; RESP 16; RESP 8; RESP 9; O2SAT 97
[2024-07-06] MEDS: Albuterol/Ipratropium 3 ML UPD VIAL UPD (07:43)
[2024-07-06 09:04] VITALS: BP 109/54; PULSE 71; RESP 16; TEMP 36.4; O2SAT 90
[2024-07-06] MEDS: Cefpodoxime 200 MG TAB PO (10:08)
[2024-07-06] MEDS: Doxycycline Hyclate 100 MG CAP PO (10:08)
--- NOTE | 2024-07-06 13:23 | DSE_ITS ---
Date of service: 07/06/24 Time of Service: 13:23 DS: Diagnosis Discharge Diagnosis (1) Skin rash: Status: Acute (2) Pneumonia: Status: Acute (3) Intellectual disability: Status: Acute Discharge Plan Disposition Patient Disposition: Home Condition: Stable Discharge Details Reason For Visit: Pneumonia Admit Date/Time: 07/03/24 17:28 Admit Provider: Frank Jeffrey Attending Provider: Frank Jeffrey Primary Care Provider: Nori Arita Hospital Course Hospital Course: This is a 74-year-old male patient past medical history significant for intellectual disability requires total care who presented to urgent care for evaluation of a rash which started on his upper extremities and was improving but now is on his lower extremities. On evaluation he was found hypotensive with a systolic in the 70s so referred to ED for evaluation. blood pressures in the emergency department have been within normal limits with no evidence of hypotension, work up concerning for aspiration pneumonia, and he was started on unasyn which was changed to on admission. He was admitted to the medical surgical unit for further treatment and evaluation. He remained hemodynamically stable. His symptoms continue to improve with rash markedly improving and essentially resolved on his upper extremities with marked improvement in the lower extremities. He had no oxygen requirements. speech eval for dysphagia and suspected chronic aspiration. Diet modifications are for pur?ed. He is discharged to home to complete a 7-day course of cefpodoxime and doxycycline. Will be scheduled outpatient to follow-up with primary care provider on July 24. he will return sooner for new or worsening symptoms Home Meds and New Rx's Prescriptions: New cefpodoxime 200 mg Tablet 200 mg PO BID Qty: 7 0RF doxycycline hyclate 100 mg capsule 100 mg PO BID Qty: 7 0RF Continued betamethasone dipropionate 0.05 % cream 1 applic topical BID Qty: 45 0RF rosuvastatin 10 mg tablet 10 mg PO DAILY lorazepam [Ativan] 1 mg tablet 1 mg PO DAILY PRN (Reason: anxiety) Qty: 1 0RF mirtazapine 7.5 mg tablet 7.5 mg PO QHS cetirizine 10 mg tablet 10 mg PO DAILY PRN ketoconazole 2 % cream 1 applic topical DAILY Discharge Instructions Instructions: Contact dermatitis, Pneumonia, Adult (DC), Pureed Diet Stand Alone Forms: Nursing Discharge Form Referrals: Nori Arita MD [Primary Care Provider] - 07/24/24 10:00 am Activity:: Activity as Tolerated Equipment/Supplies:: No Equipment Needed Diet:: pureed Discharge Orders Discharge Orders: Discharge Order (Routine); Ordered 07/06/24 Ordered By: Viridiana Santos Discharge Data Discharge Date/Time-TO BE ENTERED AT DEPARTURE: 07/06/24 14:07 DS: Summary Time Spent with Patient providing and/or coordinating discharge services: Greater than 30 minutes Status at Discharge Functional status at discharge: independent ambulation Overall status at discharge: patient is back to baseline Mental Status: mental status grossly normal Speech and Movement: speech and movement normal Mood: congruent mood Affect: normal affect Quality:SDOH Health Related Social Needs: No Data to Display Exam Narrative Exam Narrative: GEN: awake, alert, smiles and interacts appropriately HEAD: Normocephalic, atraumatic ENT: Mucous membranes slightly dry, no drainage nose or ears EYES: PERRL, no incteric, non injected NECK: Full ROM, CHEST/RESP: even and unlabored, occasional moist non prod cough CARDIOVASCULAR: RRR, no murmur, ABDOMEN: Soft, nontender, no mass. +Bowel sounds EXT: rash anterior and posterior lower ext, no evidence of cellulitis, bilateral upper ext improving, red raised no drainage but crusty. Neuro: at baseline, . Psych Mental Status: mental status grossly normal Speech and Movement: speech and movement normal Mood: congruent mood Affect: normal affect DS: Data Vitals/I&O Vitals and I&O: Vital Signs Temperature 36.4 C L 07/06/24 09:04 Temperature Source Temporal Artery Scan 07/06/24 09:04 Pulse 71 07/06/24 09:04 Pulse Rhythm Regular 07/06/24 10:20 Respiratory Rate 16 07/06/24 09:04 Respiratory Effort Normal 07/06/24 10:20 Respiratory Depth Normal 07/06/24 10:20 Respiratory Pattern Normal 07/06/24 10:20 Blood Pressure 109/54 L 07/06/24 09:04 Pulse Oximetry 90 L 07/06/24 09:04 Oxygen Delivery Method Room Air 07/06/24 09:04 Oxygen Flow Rate 0 07/06/24 09:04 Pain Level 0 07/06/24 09:04 Comment RN notified of vitals 07/06/24 09:04 Intake & Output 07/05/24 07/06/24 07/06/24 23:59 11:59 23:59 Intake Total 366.667 / 916.667 Balance 366.667 / 916.667 Intake: IV 146.667 / 396.667 Oral 220 / 520 Other: Urine Color Yellow Urine Appearance Clear Clear Urine Odor None Comment pt x1 incontinent void. large amount Voiding Methods Incontinent Incontinent Data Completed and Pending Labs on day of discharge: Labs from last 24 hours 07/06/24 06:45 WBC 10.11 RBC 4.34 L Hgb 12.7 L Hct 39.4 L MCV 91 MCH 29.3 MCHC 32.2 RDW 14.2 H Plt Count 257 MPV 10.0 Immature Gran % 0.4 Neutrophils % 71.0 Lymphocytes % 12.6 Monocytes % 10.7 Eosinophils % 4.4 Basophils % 0.9 Nucleated RBC % 0.0 Absolute Neutrophils 7.19 H Absolute Lymphocytes 1.27 Absolute Monocytes 1.08 H Absolute Eosinophils 0.44 Absolute Basophils 0.09 Sodium 141 Potassium 4.1 Chloride 105 Carbon Dioxide 29.6 Anion Gap 6.4 BUN 17 Creatinine 0.9 Est GFR (CKD-EPI 2020) 90.74 Glucose 119 H Calcium 8.9 Magnesium 1.8 Preliminary micro results at discharge 07/03/24 21:20 Blood Culture - Preliminary Blood NO GROWTH 48 HOURS 07/03/24 15:24 Blood Culture - Preliminary Blood NO GROWTH 48 HOURS PFSH All Active Problems (Updated 07/03/24 @ 20:52 by Amrit Don MD) Aspiration into airway (Acute) Rash (Acute) Pneumonia (Acute) Pneumonia (Acute) Severe sepsis (Acute) Tubular adenoma of colon (Acute ~09/2023) Stasis dermatitis of 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 venous hypertension (Acute) Onychomycosis (Acute) Skin rash (Acute) Pain, foot (Acute) Nail dystrophy (Acute) Camptocormia (Acute) Cognitive changes (Acute) Excess ear wax (Acute ~08/11/22) Urinary incontinence (Acute) Squamous cell carcinoma (Acute) Myalgia (Acute) Tubulovillous adenoma (Acute) Colon polyps (Acute) adenomatous polyp 2022 repeat in 2025 Strain of right hip (Acute) Seborrheic keratoses (Acute) Impaired fasting glucose (Acute) Intellectual disability (Acute) PRINCE (dyspnea on exertion) (Acute) Medical History (Updated 07/03/24 @ 20:52 by Amrit Don MD) History of prediabetes Family history of malignant neoplasm of digestive organs Blindness/low vision History of colon polyps Dyspnea History of squamous cell carcinoma Hyperlipidemia Not for resuscitation Anxiety 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/2021 Facial basal cell cancer Sessile colonic polyp Partial blindness Family hx of colon cancer Surgical History History of colonoscopy with polypectomy (~08/11/22) 06/20/2021 History of colonoscopy (~09/2023) Path sent Family History (Updated 06/14/24 @ 15:47 by Samira Long) Other Cancer Diabetes Heart failure Hypertension Social History Smoking/Tobacco Use Status: Never Smoking risk assessment performed?: Yes Alcohol Intake: never Drug use: Never Substance use type: does not use Housing: house Additional Social history: Lives with care provider Mya Wen. Per tanner areruddyver has extreme fear of doctors and medical providers. Proivder states to keep things as low samano as possible and not high energy. Time Spent with Patient Time Spent with Patient: 45-69 minutes Time was spent: preparing to see the patient(eg.review tests), obtaining and/or reviewing separately otained hiistory, ordering medications,tests, procedures, indepentently interpreting results and counseling the patient
--- NOTE | 2024-07-06 15:54 | W.SPSTE ---
Date of service: 07/06/24 Time of Service: 10:00 Subjective Clinical (Bedside) Swallow Evaluation Speech Language Pathology Referred by: Sheri Gan Referral Type: Clinical Swallow Evaluation Reason for Referral/HPI: Gera Hubbard is a 74 yo male with hx intellectual disability adm to [facility] 07/03/24 with pneumonia, suspected to be due to aspiration. Gera was initially brought to urgent care for a skin rash, with recommendation to present to ED due to findings of low BP and pna. He was seen recently 06/27/24 for an outpatient non instrumental swallow evaluation and is pending MBSS on 07/12/24 due to family complaints of 30lb weight loss and dysphagia symptoms. Notes indicate family has been thickening liquids at home which seems to help. SEDIMENT REMEDIATION CONSULTANT IMPRESSIONS & RECOMMENDATIONS: Gera was seen for late breakfast (too fatigued to eat earlier per ALMOND BLANCHER). He was alert and engaged- expressing feeling pleased with breakfast choices (yes!). Gera was repositioned as upright in bed as able with meal. He accepted 1:1 feed of puree, thin liquids, and mildly thick liquids with good tolerance overall. He independently took very small sips from straw. No noted coughing or throat clearing noted. Assessment limited due to patient not allowing for palpation and lack of vocalization, however he appeared to tolerate PO very well with good intake. Anticipate he may discharge home today. Recommend continue outpatient SEDIMENT REMEDIATION CONSULTANT POC for further dysphagia guidance. FURTHER SEDIMENT REMEDIATION CONSULTANT SERVICES: Patient to be followed while on unit. Upon Discharge, continue outpatient POC/MBSS 07/12 Diet Recommendations: SOLIDS: Puree LIQUIDS: Thin liquids, straws OK if facilitating small sips MEDICATIONS: Whole or crushed in puree SUPERVISION: 1:1 feed SUBJECTIVE: Patient received alert/awake, pleasant, agreeable to evaluation Pain Reported? None Baseline Swallow Function: See above PO Trials Assessed: IDDSI 0 Thin Liquids IDDSI 2 Mildly Thick Liquid IDDSI 4 Puree Solid Medications administered by RN - in pudding Oral Mechanism Examination: Edentulous. Unable to assess further- pt declining opening mouth Oral Phase Findings: WFL for limited trials today Pharyngeal Phase Findings: Anticipate Delayed swallow initiation/bolus hold Wet vocal quality noted intermittently but not appearing worse with PO ASSESSMENT: Further SEDIMENT REMEDIATION CONSULTANT Services ndicated. Patient to be followed while on unit. Recommendation at Discharge: continue outpatient POC Suggested Referrals: N/A Recommendations: ? RISK MANAGEMENT: HOB upright as tolerated; upright for all PO intake. Oral hygiene as able, before/after meals PO intake only when awake/alert? Strategies/Adaptations/Assistive Equipment: Reduce auditory and/or visual distractions when eating Small sips and bites when eating, Slow rate of intake Posture/Positioning Needs: Maintain upright position at least 30 minutes after meals Education Provided to: Nursing Topics Addressed: SEDIMENT REMEDIATION CONSULTANT findings/recommendations PLAN: Frequency: 2-3x/week for 1-2 weeks Goals: Application Dba Goals: Patient will remain free from aspiration-related illness, malnutrition, and dehydration. Short Term Goals: Patient will tolerate Puree Diet and Thin liquids without overt s/s aspiration across 2/2 visits. Patient will tolerate PO trials for consideration of diet upgrade without overt s/s aspiration across 2/2 visits. SEDIMENT REMEDIATION CONSULTANT CPT Code: 03830 Clinical Swallowing Evaluation TOTAL TIME: 25 Minutes ([id number])
== END 2024-07-06 14:07 | disposition home or self-care (01) | DRG 179 ==
LOC: ER 17:06 → MS 18:50
PROVIDERS: Nurse Practitioner Family; Admitting Provider Family Medicine; Emergency Provider Emergency Medicine; PCP Family Medicine; Visit Provider Family Medicine
DX: R21 Rash and other nonspecific skin eruption; F79 Unspecified intellectual disabilities; J69.0 Pneumonitis due to inhalation of food and vomit; I87.391 Chronic venous hypertension (idiopathic) with other complications of right lower extremity; B35.1 Tinea unguium; R32 Unspecified urinary incontinence; Z86.010 Personal history of colon polyps; R73.01 Impaired fasting glucose; Z80.0 Family history of malignant neoplasm of digestive organs; F41.9 Anxiety disorder, unspecified; E78.5 Hyperlipidemia, unspecified; Z66 Do not resuscitate; H54.3 Unqualified visual loss, both eyes
CPT/HCPCS: 00123; 36415; 80048; 80053; 84145; 87040; 96360; 96361; 99285; J1650; 71045; 83605; 83735; 83880; 85025; 94640; 94760; 99222; 99231; 99239; J0696; J7620

== ENCOUNTER 2024-07-12 01:55 | Outpatient (CLI) | payer MEDICARE, MEDICAID, SELFPAY ==
[2024-07-12] MEDS: Barium Sulfate 700 MG TAB PO (14:49)
[2024-07-12] MEDS: Barium Sulfate 40% W/V 240 ML BTL PO (14:52)
[2024-07-12] MEDS: Barium Sulfate Oral Paste 40% W/V 230 ML TUBE PO (14:53)
[2024-07-12] MEDS: Barium Sulfate 81% w/w for Oral Suspension 148 GM BTL PO (14:56)
--- NOTE | 2024-07-12 15:01 | ST.MBS_ITS ---
Date of Service Date of service: 07/12/24 Time of Service: 15:01 Modified Barium Swallow Study Findings: Video fluoroscopic Swallowing Evaluation (VFSE) / Modified Barium Swallow Study (MBSS) Speech Language Pathology Report Patient referred for VFSE/MBSS from given increased choking/coughing. HPI & Patient report of function: Gera Hubbard is a 74 yo male with hx intellectual disability who was evaluated recently via clinical swallow evalation (non-instrumental) due to 30 lb weight loss and s/sx aspiration. Caregiver has been thickening liquids at home and feels this has helped somewhat. At that time ENDODONTICS DENTIST recommended to complete MBSS. Since that time, he was also admitted to [facility] 07/03/24 with pneumonia, suspected to be due to aspiration. Gera was initially brought to urgent care for a skin rash, with recommendation to present to ED due to findings of low BP and pna. At home he had been asymptomatic for pneumonia. See recent ENDODONTICS DENTIST notes for further detail. IMPRESSIONS: Swallow safety is impaired; swallow efficiency is impaired. Mild-moderate chronic oropharyngoesophageal dysphagia. Characterized by edentulousness with disorganized oral phase, delayed pharyngeal onset, reduced epiglottic inversion, and structural abnormalities (large ?osteophyte at level of UES), resulting in significant vallecular and pyriform residue for both liquids and solids, and complicated by suspected reduced sensorimotor awareness of residue. While hyo-laryngeal motility actually seems quite strong with good airway protection, the disorganized/impulsive oral phase in combination with pharyngeal residue did lead to 1x deep micro penetration of thin liquid residue on subsequent swallow. Safest swallow conditions would entail small, single bites & sips with additional saliva swallows to clear residue. Given patient may not be very receptive to instructions for extra swallows, slow pace, etc, and historically has not been tolerant of oral care in setting of intellectual disability, there may not be much opportunity for additional risk reduction at this time, especially given caregivers already serve primarily a minced/moist diet. Did recommend provale cup for pace control with liquids, caregiver was agreeable to purchase this. Patient appears to be at moderate risk for potential aspiration PNA and/or pulmonary compromise and moderate risk for malnutrition, moderate risk for d ehydration. Diet modification is indicated; non-oral nutrition is not indicated. Swallow prognosis is guarded given: Positive prognostic factors: Family/caregiver support, Negative prognostic factors: Age, Cognitive status, Surgical/anatomical factors, Patient appears to be a poor candidate for behavioral swallow rehabilitation. Specialist referrals:? RD ? RECOMMENDATIONS: Diet Texture Recommendation:? IDDSI LEVEL SOLIDS 5-Minced & Moist Solids LIQUIDS 0-Thin Liquids Please see further details at?[email or web address] MEDICATIONS Whole with 4-Puree Diet texture modification is per patient's preference; please adjust diet textures at patient's discretion & collaboration with care team. Do not alter medications (e.g., cut)? without advice from your MD or pharmacist. Risk Management Strategies:? Behavioral reflux precautions, including upright position during + 90 mins after meals. Small bites, approx [id number] Multiple swallows per bolus to encourage clearance of pharyngeal stasis/residue Control risk factors for aspiration pneumonia via (a) thorough oral hygiene & (b) maintaining physical mobility as tolerated PLAN: Follow-up exam: Recommend repeat VFSE/MBSS PRN if further decline is noted to ensure safest diet texture recommendations. ----- OBJECTIVE Videofluoroscopic Swallow Evaluation (VFSE/MBSS) was conducted in the lateral projection by Speech-Language Pathologist, in collaboration with Radiologist, to evaluate oropharyngeal swallow function. Anatomic view under fluoroscopy: suspect osteophytes - defer to treating physician PO Barium Contrast Trials Oral barium water-soluble contrast was administered as follows: IDDSI Level 0 Varibar thin liquid (40% w/v) IDDSI Level 4 Varibar pudding/pureed/extremely thick (40% w/v) IDDSI Level 7 Regular Solid: 1/2 cookie coated in 3 mL Varibar pudding 13 mm barium tablet taken with Puree solids MBSImP Component Scores: COMPONENT Scale SCORE 1 Lip closure (0-4) 3 Resulted in escape progressing to the mid-chin 2 Hold Position (0-3) NA 3 Bolus Preparation (0-4) 2 Demonstrated disorganized chewing/mashing with annamarie id pieces of bolus unchewed 4 Bolus Transport (0-4) 2 Was with slowed tongue motion 5 Oral Residue (0-4) 2 Was a collection on oral structures 6 Swallow Initiation (0-4) 3 Occurred when the bolus head was in the pyriform sinuses 7 Soft Palate Elevation (0-4) 0 Resulted in no bolus between soft palate and t he pharyngeal wall 8 Laryngeal Elevation (0-3) 1 Was decreased with partial superior movement of thyroid cartilage/partial approximation of arytenoids to epiglottic petiole 9 Anterior Hyoid Motion (0-2) 0 Demonstrated complete anterior movement 10 Epiglottic Movement (0-2) 1 Resulted in partial inversion 11 Laryngeal Closure (0-2) 0 Was complete with no air or contrast in laryngeal vestibule 12 Pharyngeal Stripping Wave (0-2) 1 Was present, but diminished 13 Pharyngeal Contraction (0-3) NA 14 PES Opening (0-3) 1 Demonstrated partial distension/partial duration, with partial obstruction of flow 15 Tongue Base Retraction (0-4) 1 Allowed a trace column of contrast or air between tongue base and pharyngeal wall 16 Pharyngeal Residue (0-4) 2 Was a collection of residue within or on pharyngeal structures 17 Esophageal Clearance (0-4) NA Penetration-Aspiration Scale: COMPONENT Scale SCORE 1 Thin liquid (1-8) 5 Contrast entered the airway, contacted the vocal folds, and was not ejected from the airway. 2 [place] thick (1-8) NA 3 Honey thick (1-8) NA 4 Pudding thick (1-8) 1 Contrast did not enter the airway 5 Cookie (1-8) 1 Contrast did not enter the airway Observations not captured in quantitative data: Trialed Compensatory Strategies & Outcome: Maneuvers Successful (+) Unsuccessful (-) Postures Successful (+) Unsuccessful (-) 3 second Preparatory Set? ?- (could not follow instruction) Chin Tuck Posture? ? Cough? ? Posterior Head tilt? Reflexive? Cued? Throat Clear? ? Head Tilt to? Reflexive? Left? Cued? Right? ? Saliva swallow? ?+ (reflexive) Head Turn/Rotate to? ? Supraglottic Swallow? Left? ? Super-supraglottic Swallow? Right? ? Bolus Modifications Successful (+) Unsuccessful (-) Delivery/Alternating Consistencies ? Follow with Liquid Wash + ? Follow with Solid Bolus? Delivery/Via Straw? ? Reduced Volume? ?+ Reduced Rate of Intake? ?+ Increased Viscosity? ? Other:?? ? Thank you for allowing us to take part in this patient's care. Please feel free to contact the [facility] Speech Language Pathology Department with any questions/concerns.
--- NOTE | 2024-07-12 15:03 | DI.RAD_ITS ---
Exam(s) RF MODIFIED SPEECH BA SWALLOW TECHNIQUE: Modified barium swallow was performed in conjunction with speech pathology. Radiologist w as present in the fluoroscopy suite for the entire duration of the study. CONTRAST MATERIAL: Oral barium Oral water soluble contrast was administered. COMPARISON: No exams were available for comparison FINDINGS: Fluoroscopy was provided during swallowing mechanism study performed by the speech therapist. See th at separate report for details. There is no obvious aspiration evident on this study IMPRESSION: No evidence of aspiration See separate speech therapist report RADIATION DOSE DELIVERED: julia Rojas=10.6 mGy
== END 2024-07-12 02:15 ==
LOC: DI 01:56
PROVIDERS: PCP Family Medicine; Visit Provider Family Medicine
DX: R13.12 Dysphagia, oropharyngeal phase (principal)
CPT/HCPCS: 92526; 74221

== ENCOUNTER 2024-10-06 14:47 | Emergency (ER) | payer MEDICARE, MEDICAID, SELFPAY ==
[2024-10-06] VITALS (18 sets, daily range): BP systolic 96–139; BP diastolic 37–62; PULSE 75–95; RESP 9–21; TEMP 36.5; O2SAT 95–98
--- NOTE | 2024-10-06 15:00 | DI.CT_ITS ---
Exam(s) CT NECK CHEST WO EXAM: CT NECK CHEST WO CLINICAL HISTORY: eval fb or aspiration TECHNIQUE: Imaging Protocol: Axial computed tomography images with coronal and sagittal reformatted images were created and reviewed. Computer aided detection (CAD) was utilized. CONTRAST MATERIAL: Noncontrast COMPARISON: CT ABD PELVIS WO CONTRAST from 09/05/2017 CR XR PORTABLE CHEST AP from 07/03/2024 FINDINGS: Neck: The exam is limited by patient positioning and lack body fat. Technical artifact also present near t he level of the skull base. Parotids/submandibular/thyroid gland: Normal. Lymphadenopathy: No pathologically enlarged lymph nodes. Soft tissues: Nasopharynx and oropharynx are well distended with air. The floor the mouth is unremar kable. The epiglottis and vocal cords are within normal limits. Bones: No fracture. No lytic or blastic lesions. Severe degenerative changes with prominent endplat e osteophytes projecting anteriorly, some of which are bridging. Central canal stenosis at the C5 an d C6 levels. Chest: Exam is mildly limited by respiratory motion at the lung bases. Evaluation of the upper abdomen is l imited due to patient arm position causing streak artifact. Tracheobronchial tree: Patent where visualized. Mediastinum and Nicole: No dominant adenopathy or fluid collection. Pulmonary parenchyma: Mild patchy infiltrates seen in the right lower lobe. Minimal densities noted in the medial right middle lobe. The patient was noted to have right-sided pneumonia on prior chest x-ray 03 July 2024. Significant improvement from prior. Patchy infiltrate noted at the medial lef t lung base. No dominant measurable mass. Pleura: No effusion or pneumothorax. Heart/Aorta: Thoracic aorta non-dilated. The heart is not dilated. No coronary artery calcifications are seen. Pulmonary arteries: No evidence of emboli. Bones: No fracture. No lytic or blastic lesions. ABDOMEN: Nonspecific gaseous distension of loops of bowel. Increased stool noted. IMPRESSION: No evidence of foreign body in the airway or esophagus. Bilateral lower lobe infiltrates, greatest at the medial left lower lobe. RADIATION DOSE DELIVERED: Total DLP DATA REPOSITORY: All CT scans at this facility are submitted to the National Radiology Data Registry (NRDR) Dose Index Registry (DIR) with the [employer] (ACR). RADIATION OPTIMIZATION: All CT scans at this facility use at least one of these dose optimization te chniques: automated exposure control; mA and/or kV adjustment per patient size (includes targeted exa ms where dose is matched to clinical indication); or iterative reconstruction.
--- NOTE | 2024-10-06 15:17 | ED.GENADUL_ITS ---
Discharge Plan Disposition Patient Disposition: Home Discharge Details Clinical Impression: Choking episode, SILVANA (acute kidney injury) Primary Care Provider: Nori Arita ED Provider: Amrit Don Home Meds and New Rx's Prescriptions: No Action betamethasone dipropionate 0.05 % cream 1 applic topical BID Qty: 45 0RF rosuvastatin 10 mg tablet 10 mg PO DAILY lorazepam [Ativan] 1 mg tablet 1 mg PO DAILY PRN (Reason: anxiety) Qty: 1 0RF mirtazapine 7.5 mg tablet 7.5 mg PO QHS cetirizine 10 mg tablet 10 mg PO DAILY PRN ketoconazole 2 % cream 1 applic topical DAILY cefpodoxime 200 mg Tablet 200 mg PO BID Qty: 7 0RF doxycycline hyclate 100 mg capsule 100 mg PO BID Qty: 7 0RF Discharge Instructions Additional Instructions: monitor oral intake increase fluids, he is slightly dehydrated on lab work may need to be re-evaluated by speech therapy if he continues to have symptoms HPI General Date/Time Provider Initiated Documentation: 10/06/24 14:51 . Limitations to Documentation: language barrier and altered mental status . Information obtained by: family (Caregiver) . HPI Narrative: 74-year-old gentleman with past medical history of longstanding intellectual disability presents with his caregivers for evaluation of cough and altered mental status. The caregiver reports that he was at home eating lunch which consisted of spaghetti. She states that while eating he started coughing and then started drooling. She reports that he has been drooling since that time and coughing as well. She denies that he has had any vomiting. She says that she tried to give him some water but he just spit it all out. She states that he has been less responsive. He has not been as engaged or doing things that he normally does. This event occurred about 1 hour prior to arrival. She states that there was no color change or loss of consciousness. Related Data Home Medications ?Medication ?Instructions ?Recorded ?Confirmed rosuvastatin 10 mg tablet 10 mg PO DAILY 03/10/23 07/03/24 lorazepam 1 mg tablet (Ativan) 1 mg PO DAILY PRN anxiety #1 tab 10/10/23 07/03/24 cetirizine 10 mg tablet 10 mg PO DAILY PRN 06/14/24 07/03/24 ketoconazole 2 % topical cream 1 applic topical DAILY 06/14/24 07/03/24 mirtazapine 7.5 mg tablet 7.5 mg PO QHS 06/14/24 07/03/24 betamethasone dipropionate 0.05 % 1 applic topical BID #45 grams 07/03/24 07/03/24 topical cream cefpodoxime 200 mg tablet 200 mg PO BID #7 tabs 07/06/24 doxycycline hyclate 100 mg capsule 100 mg PO BID #7 caps 07/06/24 Previous Rx's ?Medication ?Instructions ?Recorded lorazepam 1 mg tablet (Ativan) 1 mg PO DAILY PRN anxiety #1 tab 10/10/23 betamethasone dipropionate 0.05 % 1 applic topical BID #45 grams 07/03/24 topical cream cefpodoxime 200 mg tablet 200 mg PO BID #7 tabs 07/06/24 doxycycline hyclate 100 mg capsule 100 mg PO BID #7 caps 07/06/24 Allergies Allergy/AdvReac Type Severity Reaction Status Date / Time No Known Allergies Allergy Verified 07/03/24 13:12 General MANOJ: 2 Exam Narrative Exam Narrative: Review of Systems: All systems reviewed & are unremarkable except as noted in HPI and below Elderly frail Examination difficult as the patient screams whenever I try to touch him NCAT Drooling saliva RRR Unlabored respiratory effort coarse breath sounds Nondistended abdomen Patient is in wheelchair has arms contracted upward He has the appearance of spaghetti and water all down his shirt and pants Medical Decision Making Emergent evaluation of possible aspiration event. Patient is a 74-year-old gentleman that has a history of aspiration. Per his medical record review his speech therapy evaluation recommended pur?ed solids, thin liquids, with one-to-one feeding. Concerned that the spaghetti may have been too advanced. The patient is drooling slightly so it is unclear if he has an obstructive process occurring. He cannot tell me or really answer questions or participate in the examination. On previous emergency department evaluation, the patient received IM ketamine to facilitate his workup. Will do the same today. Given limited physical exam and history, will get CT scan of neck and chest to evaluate for possible obstructive etiology or aspiration. CT imaging does not demonstrate a foreign body food bolus or signs of aspiration or other consolidation in the lungs. The patient has remained stable in the ED. He is not drooling and is not hypoxic. I suspect that he may have had like a choking episode and then had some behavioral aversion to swallowing. We were able to get him to drink juice without any difficulty or choking. His lab work does indicate a slight SILVANA, likely some dehydration. The caregiver at bedside is not superclear about how much intake he has daily. I do recommend that he increase his fluid intake and follow-up closely with PCP. If he continues to have any choking episodes he likely needs reevaluation by speech. Quality:SDOH Health Related Social Needs: No Data to Display PFSH All Active Problems (Updated 10/06/24 @ 17:49 by Amrit Don MD) SILVANA (acute kidney injury) (Acute) Choking episode (Acute) Aspiration into airway (Acute) Rash (Acute) Pneumonia (Acute) Severe sepsis (Acute) Tubular adenoma of colon (Acute ~09/2023) Stasis dermatitis of 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 venous hypertension (Acute) Onychomycosis (Acute) Skin rash (Acute) Pain, foot (Acute) Nail dystrophy (Acute) Camptocormia (Acute) Cognitive changes (Acute) Excess ear wax (Acute ~08/11/22) Urinary incontinence (Acute) Squamous cell carcinoma (Acute) Myalgia (Acute) Tubulovillous adenoma (Acute) Colon polyps (Acute) adenomatous polyp 2022 repeat in 2025 Strain of right hip (Acute) Seborrheic keratoses (Acute) Impaired fasting glucose (Acute) Intellectual disability (Acute) PRINCE (dyspnea on exertion) (Acute) Medical History Pneumonia History of prediabetes Family history of malignant neoplasm of digestive organs Blindness/low vision History of colon polyps Dyspnea History of squamous cell carcinoma Hyperlipidemia Not for resuscitation Anxiety 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/2021 Facial basal cell cancer Sessile colonic polyp Partial blindness Family hx of colon cancer Surgical History History of colonoscopy with polypectomy (~08/11/22) 06/20/2021 History of colonoscopy (~09/2023) Path sent Family History Other Cancer Diabetes Heart failure Hypertension Social History Smoking/Tobacco Use Status: Never Smoking risk assessment performed?: Yes Alcohol Intake: never Drug use: Never Substance use type: does not use Housing: house Additional Social history: Lives with care provider Mya Wen. Per caregiver has extreme fear of doctors and medical providers. Proivder states to keep things as low samano as possible and not high energy.
[2024-10-06] MEDS: Ketamine 500 MG/5 ML VIAL 100 MG IM (15:26)
[2024-10-06 15:57] LABS: Absolute Basophil Count 0.05 10^3/uL (0.0-0.2); Absolute Eosinophil Count 0.01 10^3/uL (0.0-0.7); Absolute Lymphocyte Count 0.76 10^3/uL (1.2-3.4); Absolute Monocyte Count 0.74 10^3/uL (0.1-0.8); Basophils % 0.5 %; Eosinophils % 0.1 %; HCT 40.7 % (40.0-50.0); HGB 13.4 g/dL (13.5-17.5); Lymphocytes % 7.5 %; MCH 28.6 pg (27.0-33.0); MCHC 32.9 % (32.0-36.0); MCV 87 fL (80-95); Monocytes % 7.3 %; Neutrophils % 83.6 %; RBC 4.69 10^6/uL (4.36-5.78); RDW 14.2 % (11.8-14.1); RDW-SD 44.5 fL; WBC 10.16 10^3/uL (4.4-10.8)
[2024-10-06 16:48] LABS: ALT 46 U/L (16-63); AST 30 U/L (15-37); Albumin 3.2 g/dL (3.4-5.0); Alkaline Phosphatase 106 U/L (46-116); Anion Gap 8.4 mmol/L (3-11); BUN 33 mg/dL (7-18); Bilirubin, Total 0.36 mg/dL (0.2-1.0); CO2 29.6 mmol/L (21.0-32.0); CREATININE 1.7 mg/dL (0.70-1.30); Chloride 102 mmol/L (98-107); Glucose 194 mg/dL (74-106); Potassium 4.7 mmol/L (3.5-5.1); Sodium 140 mmol/L (136-145); Total Protein 7.4 g/dL (6.4-8.2)
--- NOTE | 2024-10-06 16:52 | NUR.NOTE ---
PT was offered water per ED MD request. PT refused at this time. PTs caregiver was given water to encourage the PT to drink. Nursing Note:
== END 2024-10-06 17:56 | disposition home or self-care (01) ==
PROVIDERS: Emergency Provider Emergency Medicine; PCP Family Medicine
DX: R09.89 Other specified symptoms and signs involving the circulatory and respiratory systems; T17.908A Unspecified foreign body in respiratory tract, part unspecified causing other injury, initial encounter; N17.9 Acute kidney failure, unspecified; F79 Unspecified intellectual disabilities; R06.09 Other forms of dyspnea
CPT/HCPCS: 71271; 80053; 96372; 99284; 70490; 85025; 99283

== ENCOUNTER 2024-10-30 15:03 | Inpatient (IN) | payer MEDICARE, MEDICAID, SELFPAY ==
[2024-10-30] VITALS (136 sets, daily range): BP systolic 55–129; BP diastolic 20–76; PULSE 0–98; RESP 10–52; TEMP 36.7–37.1; O2SAT 94–100
[2024-10-30] MEDS: Normal Saline 1,000 ML 1000 ML IV (15:45)
--- NOTE | 2024-10-30 16:09 | ED.GENADUL_ITS ---
Discharge Plan Disposition Patient Disposition: Admit to [facility] Condition: Poor Discharge Details Chief Complaint: GenMedical Clinical Impression: UTI (urinary tract infection), Cognitive changes, Pneumonia, Pancreatitis, acute, Acute hypotension Admit Date/Time: 10/30/24 19:38 Admit Provider: Dat Martel Attending Provider: Dta Martel Primary Care Provider: Nori Arita ED Provider: Amrit Don [facility] General Date/Time Provider Initiated Documentation: 10/30/24 15:24 . Limitations to Documentation: altered mental status . Information obtained by: family and EMS . HPI Narrative: 74-year-old gentleman with past medical history including cognitive delay, recurrent aspiration pneumonia presents for evaluation of altered mental status. Caregiver reports that this morning he seemed to appear very sick. He would not get up and walk around. He has refused to eat or drink all day. He has not had any fever or vomiting. She was worried about his breathing and noted that his oxygen level was in the 70s. On EMS arrival they note that he was hypotensive. Afebrile. They report that his oxygen level was normal. Related Data Home Medications ?Medication ?Instructions ?Recorded ?Confirmed rosuvastatin 10 mg tablet 10 mg PO DAILY 03/10/23 10/30/24 ketoconazole 2 % topical cream 1 applic topical DAILY 06/14/24 10/30/24 mirtazapine 7.5 mg tablet 7.5 mg PO QHS 06/14/24 10/30/24 nystatin 100,000 unit/gram topical 1 applic topical BID 10/24/24 10/30/24 powder (Nystop) Allergies Allergy/AdvReac Type Severity Reaction Status Date / Time No Known Allergies Allergy Verified 10/30/24 15:12 General Stated Complaint: GenMedical MANOJ: 2 Exam Narrative Exam Narrative: Review of Systems: All systems reviewed & are unremarkable except as noted in HPI and below Cachectic, chronically ill-appearing Healing bruise around the left thigh PERRL, normal conjunctiva RRR no murmur Hypotensive Unlabored respiratory effort coarse breath sounds diffusely, no significant tachypnea or hypoxia Nondistended abdomen generalized tenderness and guarding No rashes or lesions. no focal neurologic deficits Course Vital Signs Vital signs: Vital Signs Pulse 98 H 10/30/24 15:03 Respiratory Rate 16 10/30/24 15:03 Blood Pressure 73/45 L 10/30/24 15:03 Pulse Oximetry 95 10/30/24 15:03 Temperature 37.1 C 10/30/24 15:21 Temperature Source Tympanic 10/30/24 15:21 Pulse 98 H 10/30/24 15:21 Respiratory Rate 16 10/30/24 15:21 Blood Pressure 73/45 L 10/30/24 15:21 Blood Pressure Position Sitting 10/30/24 15:21 Pulse Oximetry 95 10/30/24 15:21 Oxygen Delivery Method Room Air 10/30/24 15:21 Oxygen Flow Rate 0 10/30/24 15:21 Pain Level 5 10/30/24 15:21 Lab/Test Results Lab/Test Results: 10/30/24 15:41 Blood Blood Culture - Pending 10/30/24 15:41 Blood Blood Culture - Pending Medical Decision Making Patient is nonverbal at baseline and has a caregiver at the bedside. She reports a significant change in his capacity today. Patient has been evaluated for choking and aspiration pneumonia previously. On initial evaluation is not hypoxic or demonstrating any signs of respiratory distress, but he is significantly hypotensive. My concern is for dehydration, overwhelming infection, likely pulmonary source. Patient has received 1 L IV fluids by EMS. With some improvement in his blood pressures. Will continue IV fluid resuscitation to 30 mL/kg. Given his significant abdominal tenderness, I am also concerned for an intra-abdominal etiology. The caregiver does not indicate that he has had any vomiting constipation or diarrhea. Last bowel movement was yesterday. ED workup does not demonstrate a leukocytosis or significant anemia. He does have a slight left shift. His lactic acid is slightly above our normal range but is only 1.9. His creatinine and BUN are elevated which is new since June but consistent with prior evaluations last month. His calcium level is low. His lipase is slightly elevated at 127. I am wondering if mild pancreatitis is contributing to his symptoms today. His procalcitonin is only slightly elevated at 0.9. After 2 L of IV fluid resuscitation, he still had blood pressures with maps in the 40s and 50s. He was started on norepinephrine infusion which did result in resolution of his hypotension and the drip was able to be titrated off. I discussed his CT findings with radiology. He does have significant right upper lobe infiltrate and an increased size of the left lower lobe infiltrates. Initially there was some concern for free air in the abdomen though it was not clear that this was true free air. An acute abdominal series x-ray was obtained which did not confirm any free air. Given the findings of the pneumonia on the CT, he was antibiosis with broad-spectrum antibiotics. He has had multiple hospitalizations and antibiotic treatments over the last few months. I did discuss goals of care with the family member at bedside and she is interested in palliative care and they have been trying to get an appointment, but have been unable to do so. After Lowe catheter was placed, urinalysis was able to be obtained and this is noted to be infected. His viral testing is negative. His urine infection will be covered by the antibiotics already previously given. Discussed with the hospitalist the patient will be admitted to their service for further management. Quality:SDOH Health Related Social Needs: Health related social needs details Pt unable to alishajagjit holland needs Critical Care Time Critical Care Time Critical Care Time: Yes Total Critical Care Time: 34 Attestation: CRITICAL CARE Upon my evaluation, this patient had a high probability of imminent or life-thr eatening deterioration due to hypotension, pneumonia which required my direct attention, intervention, and personal management. I have personally provided 34 minutes of critical care time exclusive of time spent on separately billable procedures. Time includes review of laboratory data, radiology results, discussion with consultants, and monitoring for potential decompensation. Interventions were performed as documented above [facility] All Active Problems (Updated 10/30/24 @ 22:35 by Amrit Don MD) Acute hypotension (Acute) Pneumonia (Acute) UTI (urinary tract infection) (Acute) Hyperglycemia without ketosis (Acute) Pancreatitis, acute (Acute) Cholelithiasis (Chronic) Shock due to systemic infection (Acute) Acute dehydration (Acute) SILVANA (acute kidney injury) (Acute) Choking episode (Acute) Aspiration into airway (Acute) Rash (Acute) Pneumonia (Acute) Severe sepsis (Acute) Tubular adenoma of colon (Acute ~09/2023) Stasis dermatitis of 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 venous hypertension (Acute) Onychomycosis (Acute) Skin rash (Acute) Pain, foot (Acute) Nail dystrophy (Acute) Camptocormia (Acute) Cognitive changes (Acute) Excess ear wax (Acute ~08/11/22) Urinary incontinence (Acute) Squamous cell carcinoma (Acute) Myalgia (Acute) Tubulovillous adenoma (Acute) Colon polyps (Acute) adenomatous polyp 2022 repeat in 2025 Strain of right hip (Acute) Seborrheic keratoses (Acute) Impaired fasting glucose (Acute) Intellectual disability (Acute) PRINCE (dyspnea on exertion) (Acute) Medical History Failure to thrive in adult Abnormal weight loss Pneumonia History of prediabetes Family history of malignant neoplasm of digestive organs Blindness/low vision History of colon polyps Dyspnea History of squamous cell carcinoma Hyperlipidemia Not for resuscitation Anxiety 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 Per caregiver has extreme fear of doctors and medical providers. Proivder states to keep things as low samano as possible and not high energy.
[2024-10-30 16:28] LABS: Lactate 1.9 mmol/L (0.6-1.4)
[2024-10-30 16:32] LABS: HCT 35.4 % (40.0-50.0); HGB 11.3 g/dL (13.5-17.5); MCHC 31.9 % (32.0-36.0); MCV 88 fL (80-95); MPV 10.6 fL (8.0-11.0); Platelet Count 170 10^3/uL (130-400); RBC 4.04 10^6/uL (4.36-5.78); RDW 15.1 % (11.8-14.1); RDW-SD 48.5 fL; WBC 10.47 10^3/uL (4.4-10.8)
[2024-10-30 16:47] LABS: ALT 34 U/L (16-63); AST 33 U/L (15-37); Albumin 2.6 g/dL (3.4-5.0); Alkaline Phosphatase 118 U/L (46-116); Anion Gap 9.3 mmol/L (3-11); BUN 47 mg/dL (7-18); Bilirubin, Total 0.33 mg/dL (0.2-1.0); CO2 26.7 mmol/L (21.0-32.0); CREATININE 1.7 mg/dL (0.70-1.30); Chloride 106 mmol/L (98-107); Glucose 168 mg/dL (74-106); Lipase 127 U/L (<78); Potassium 4.4 mmol/L (3.5-5.1); Sodium 142 mmol/L (136-145); Total Protein 6.1 g/dL (6.4-8.2)
[2024-10-30 16:50] LABS: Absolute Lymphocyte Count 0.84 10^3/uL (1.2-3.4); Absolute Monocyte Count 1.36 10^3/uL (0.1-0.8); Absolute Neutrophil Count 8.27 10^3/uL (1.2-6.7); Atypical Lymphocytes % 2 %; Bands % 2 %
[2024-10-30 16:51] LABS: Diff Comment Manual Differential; RBC Morphology Normal
[2024-10-30 16:57] LABS: Procalcitonin 0.98 ng/mL
[2024-10-30] MEDS: Norepinephrine in D5W 8 MG/250 ML BAG 9.375 MG IV (17:00)
[2024-10-30] MEDS: Normal Saline - Diluent 50 ML VIAL IJ (17:08)
[2024-10-30] MEDS: Omnipaque 350 MG/ML 100 ML BTL IJ (17:08)
--- NOTE | 2024-10-30 17:10 | DI.CT_ITS ---
Exam(s) CT CHEST/ABD/PEL W EXAM: CT CHEST/ABD/PEL W CLINICAL HISTORY: hypotension, abdominal pain. TECHNIQUE: Imaging Protocol: Axial computed tomography images with coronal and sagittal reformatted images were created and reviewed CONTRAST MATERIAL: Intravenous: Omnipaque 350 Contrast volume:100 ml Oral: None COMPARISON: CT CT NECK CHEST WO from 10/06/2024 FINDINGS: CHEST: LUNGS: There is now a large area of infiltrate in the posterior segment of the right upper lobe which was not evident on 10/06/2024. Consistent with large area of pneumonia. There is a small area of i nfiltrate in the medial segment of the right middle lobe. There is also some patchy infiltrate in th e right lower lobe just above the hemidiaphragm. No right pleural effusion. In the opposite-left haroon ng there is no infiltrate in the upper lobe and lingular segment. There is some infiltrate in the po sterior basal segment of the left lower lobe which has slightly increased from 10/06/2024. There is no pleural effusion. MEDIASTINUM: There is no hilar nor mediastinal adenopathy. Visualized thyroid unremarkable. CARDIAC: Heart size is normal. There is no pericardial effusion.Caliber of the thoracic aorta is wit hin upper normal limits. No evidence of dissection. OSSEOUS: No significant osseous lesions.No acute fractures.. ABDOMEN: There is no ascites. There is a paucity of intraperitoneal fat and patient is cachectic. LIVER: There are no focal hepatic lesions nor dilatation of intrahepatic ducts. GALLBLADDER/BILIARY: There is a 1 cm gallstone in the gallbladder lumen noted. The gallbladder does not appear edematous. There is no pericholecystic fluid. CBD is not dilated. PANCREAS: Pancreas is atrophic. No obvious mass. SPLEEN: Spleen is not enlarged. There are no intrasplenic lesions. Splenic and portal veins are lundberg nt. ADRENALS: There are no significant adrenal masses. KIDNEYS: There is small benign cortical cysts in both kidneys which do not require further workup. T he largest of the cysts measures 2 cm and is in the inferior pole of the left kidney. No solid renal masses.. No calculi. No hydronephrosis. ABDOMINAL AORTA: Abdominal aorta is not enlarged. LYMPH NODES: There is no retroperitoneal nor paraaortic adenopathy. ABDOMINAL WALL: No evidence of significant anterior abdominal wall hernia. Subtle evidence of a righ t inguinal hernia noted. GI: There are dilated loops of bowel and their is abundant fecal material in the distal colon. There is a subtle suggestion of some possible free air adjacent to the spleen. However, it is difficult t o determine if this is extra luminal or with in the colon at this level. PELVIS: LYMPH NODES: There is no intrapelvic nor inguinal adenopathy. GI: Appendix cannot be identified.No evidence of sigmoid diverticulitis. URINARY BLADDER: No calculi nor masses evident REPRODUCTIVE: Prostate small or surgically absent. OSSEOUS: No significant osseous lesions. No acute fractures. IMPRESSION: 1. Compared to CT scan of 10/06/2024 there is prominent area of new infiltrate in the right upper lob e. Smaller areas of infiltrate are noted in the right middle lobe and the left lower lobe. There ar e no pleural effusions. 2. Cholelithiasis without evidence of obvious acute cholecystitis. 3. Dilated bowel loops which are associated with abundant fecal material in the distal colon. 4. There is a suggestion of possible free air in the left flank but is very difficult to determine if this is extra luminal or intraluminal within the colon at this level. Recommend acute abdominal plain film series to help determine if there is free intraperitoneal air. Discussed with ER physician 10/30/2024 5:38 p.m. RADIATION DOSE DELIVERED: 292.54mGy.cm Total DLP DATA REPOSITORY: All CT scans at this facility are submitted to the National Radiology Data Registry (NRDR) Dose Index Registry (DIR) with the [employer] (A[employer]). RADIATION OPTIMIZATION: All CT scans at this facility use at least one of these dose optimization te chniques: automated exposure control; mA and/or kV adjustment per patient size (includes targeted exa ms where dose is matched to clinical indication); or iterative reconstruction.
--- NOTE | 2024-10-30 17:27 | NUR.NOTE ---
Nursing Note: Pt not given 50mg/1ml dose of ketamine for imaging. 1ml dose wasted with Gaye Rufus, Unable to confirm waste in Pyxis.
--- NOTE | 2024-10-30 18:42 | DI.RAD_ITS ---
Exam(s) XR ABD FLAT UPRIGHT PA CHEST EXAM: XR ABD FLAT UPRIGHT PA CHEST CLINICAL HISTORY: abd pain. TECHNIQUE: 2D digital imaging was performed. COMPARISON: CR XR PORTABLE CHEST AP from 07/03/2024 FINDINGS: 3 views: There is significant infiltrate in the right upper lobe, corresponding to what is seen on CT scan tod ay. There is also mild infiltrate in the posterior basal segment of the left lower lobe-retrocardiac region. Heart size is normal. No pleural effusions. No pulmonary edema. There are air-filled small and large bowel loops in the abdomen and pelvis. No obvious free intraper itoneal air. IMPRESSION: No obvious free intraperitoneal air. Right upper lobe infiltrate. Left lower lobe infiltrate. No pleural effusions. DATA REPOSITORY: RADIATION DOSE DELIVERED:
--- NOTE | 2024-10-30 19:11 | W.PM.HP.N ---
Date of service: 10/30/24 Time of Service: 19:11 Assessment and Plan Assessment and plan (1) Acute dehydration: Start date: 10/30/24 Status: Acute Assessment and plan: This is a 74-year-old gentleman who has 24 hour care at home and chronic behavioral disability. He does not eat well at home and is becoming cachectic with palliative care being considered the patient being DNR/DNI. He is dehydrated presently because of decreased intake and does have gallbladder with stones and evidence of slight pancreatitis though is not having focal pain. He is not able to verbalize. He will be admitted for IV hydration, good effect care consultation with workup of treatable problems. Surgery was not consulted but ultrasound of the abdomen was ordered for the morning. Will also update echocardiogram since patient is requiring fluid resuscitation for hypotension. Patient is on norepinephrine drip which will be continued as needed. He is admitted to the ICU. As stated, he is a DNR/DNI. (2) Pneumonia: Start date: 10/30/24 Status: Acute Assessment and plan: Bilateral and worsened on the right compared to previous imaging in September 2024 with question of aspiration. He has been previously cleared by speech therapy. He is approaching palliative care with poor intake and choking with cough chronically. (3) UTI (urinary tract infection): Start date: 10/30/24 Status: Acute Assessment and plan: Urine culture was performed and follow-up with patient on treatment for pneumonia which should cover this infection as well. He does have Lowe catheter to monitor fluid status having shock with fluid resuscitation and no previous echocardiogram. (4) Shock due to systemic infection: Start date: 10/30/24 Status: Acute Assessment and plan: Norepinephrine drip weaning as possible. This should not be a long-term treatment. Patient does not appear to have sepsis at this time. (5) Pancreatitis, acute: Start date: 10/30/24 Status: Acute Assessment and plan: Elevated lipase with no abdominal pain verbalized or observed on exam. Ultrasound the gallbladder and symptomatic care. Advance diet to clear fluids for now. Patient does have possible aspiration in the past but speech therapy did clear him for diet. Consider reevaluation with speech therapy and has problems eating and possibly aspirating. (6) Cholelithiasis: Status: Chronic Assessment and plan: Ultrasound abdomen in the morning. Patient may not be a good surgical candidate but patient care does not exclude surgical intervention if this is causing problems with his intake. (7) Hyperglycemia without ketosis: Start date: 10/30/24 Status: Acute Assessment and plan: Patient has no history of diabetes but is slightly hyperglycemic with glucometer measurements to be performed before meals and at bedtime with sensitive insulin sliding scale. History of Present Illness History of Present Illness Chief Complaint: Altered mental status with breathing difficulty and hypoxemia. Narrative: This is a 74-year-old male patient who is cared for 24 hours [id number] with chronic cognitive delay though he does usually get up and walk around. He has had recurrent aspiration pneumonia recently. This morning his interventional radiology technologist thought he appeared very sick and he would not get up and walk around his usual as well as refused to eat or drink the entire day. He had no fever measured and had no vomiting. She did note that his breathing was irregular and his oxygen level did drop in the 70% range by pulse oximeter. EMS was called and noted that he was hypotensive. The patient was brought to the ED on O2 supplementation and received IV fluid resuscitation as well as norepinephrine infusion for maintenance of blood pressure. He appeared dehydrated and was in shock. Did not have severe endorgan disease though he did have elevated creatinine and BUN from his baseline. His WBC was not elevated. His lactic acid was elevated and he did have slight hyperglycemia with no history of diabetes mellitus. Imaging did reveal cholelithiasis though there was no obstruction and elevated lipase with the possibility of his sudden change in eating status being secondary to gallbladder pancreatitis. Imaging did not reveal overt pancreatitis or abscessing/necrosis. The patient will be admitted for IV hydration and echocardiogram will be performed as long we are admitting patient for more aggressive therapy with norepinephrine to be continued for maintenance of blood pressure and patient to be admitted to the ICU. He does not have any abdominal pain in the right upper quadrant but ultrasound of the gallbladder will be performed. Surgical consultation could be considered. He is a DNR/DNI. Review of Systems Narrative: 13 point review of systems otherwise unrevealing as per caregiver or unobtainable. PFSH All Active Problems Acute hypotension (Acute) Pneumonia (Acute) UTI (urinary tract infection) (Acute) Hyperglycemia without ketosis (Acute) Pancreatitis, acute (Acute) Cholelithiasis (Chronic) Shock due to systemic infection (Acute) Acute dehydration (Acute) SILVANA (acute kidney injury) (Acute) Choking episode (Acute) Aspiration into airway (Acute) Rash (Acute) Pneumonia (Acute) Severe sepsis (Acute) Tubular adenoma of colon (Acute ~09/2023) Stasis dermatitis of 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 venous hypertension (Acute) Onychomycosis (Acute) Skin rash (Acute) Pain, foot (Acute) Nail dystrophy (Acute) Camptocormia (Acute) Cognitive changes (Acute) Excess ear wax (Acute ~08/11/22) Urinary incontinence (Acute) Squamous cell carcinoma (Acute) Myalgia (Acute) Tubulovillous adenoma (Acute) Colon polyps (Acute) adenomatous polyp 2022 repeat in 2025 Strain of right hip (Acute) Seborrheic keratoses (Acute) Impaired fasting glucose (Acute) Intellectual disability (Acute) PRINCE (dyspnea on exertion) (Acute) Medical History Failure to thrive in adult Abnormal weight loss Pneumonia History of prediabetes Family history of malignant neoplasm of digestive organs Blindness/low vision History of colon polyps Dyspnea History of squamous cell carcinoma Hyperlipidemia Not for resuscitation Anxiety 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 Per caregiver has extreme fear of doctors and medical providers. Proivder states to keep things as low samano as possible and not high energy. Meds Allergies and Home Medications Allergies Allergy/AdvReac Type Severity Reaction Status Date / Time No Known Allergies Allergy Verified 10/30/24 15:12 Home Medications ?Medication ?Instructions ?Recorded ?Confirmed ?Type rosuvastatin 10 mg tablet 10 mg PO DAILY 03/10/23 10/30/24 History ketoconazole 2 % topical cream 1 applic topical DAILY 06/14/24 10/30/24 History mirtazapine 7.5 mg tablet 7.5 mg PO QHS 06/14/24 10/30/24 History nystatin 100,000 unit/gram topical 1 applic topical BID 10/24/24 10/30/24 History powder (Nystop) Exam Narrative Exam Narrative: General: Patient appears older than stated age, cachectic and lying in bed contracted with his upper extremities folded over his chest not moving and yelling out when attempting to move his arms. His legs are slightly contracted. He appears in no acute distress when not touched. His eyes are open and he does respond review to questions such as where the live with patient stated he lives at home. Otherwise he is not responding but stares straight when questioned. HEENT: Normocephalic, course and facial features, eyes with pupils equal and reactive to light symmetrically, extraocular movement intact and sclera anicteric. Oropharynx with dry mucosa and patient is edentulous. Neck: Supple without JVD. Back: Kyphotic without CVA tenderness. Lungs: Patient has poor inspiratory effort and no focalizing rales or rhonchi but not taking deep breath. No expiratory wheeze and no increased expiratory phase. Heart: Regular rate and rhythm with no murmurs gallops appreciated. Abdomen: Scaphoid without focalizing tenderness or rebound. Bowel sounds are hypoactive in all quadrants. No palpable hepatosplenomegaly and no Wooten sign. Genitalia/rectal: Exam deferred. Patient does have Lowe catheter in place. Extremities: Without clubbing, cyanosis or grossly pitting edema. Fair capillary refill. Extremities are contracted as stated. Diffuse muscle wasting. Neuro: Cranial nerves II through XII grossly intact, no focal motor deficits but the patient does have increased tone with contractures which appear to be voluntary. No tremor. Psych: Slightly anxious when stimulated, dysarthric speech with mood labile. He appears delirious. No abnormal thought processes manifested. Remote and recent memory not testable. Results Imaging Imaging Studies: EXAM: CT CHEST/ABD/PEL W Date of Exam:10/30/2024 CLINICAL HISTORY: hypotension, abdominal pain. TECHNIQUE: Imaging Protocol: Axial computed tomography images with coronal and sagittal reformatted images were created and reviewed CONTRAST MATERIAL: Intravenous: Omnipaque 350 Contrast volume:100 ml Oral: None COMPARISON: CT CT NECK CHEST WO from 10/06/2024 FINDINGS: CHEST: LUNGS: There is now a large area of infiltrate in the posterior segment of the right upper lobe which was not evident on 10/06/2024. Consistent with large area of pneumonia. There is a small area of infiltrate in the medial segment of the right middle lobe. There is also some patchy infiltrate in the right lower lobe just above the hemidiaphragm. No right pleural effusion. In the opposite-left lung there is no infiltrate in the upper lobe and lingular segment. There is some infiltrate in the posterior basal segment of the left lower lobe which has slightly increased from 10/06/2024. There is no pleural effusion. MEDIASTINUM: There is no hilar nor mediastinal adenopathy. Visualized thyroid unremarkable. CARDIAC: Heart size is normal. There is no pericardial effusion.Caliber of the thoracic aorta is within upper normal limits. No evidence of dissection. OSSEOUS: No significant osseous lesions.No acute fractures.. ABDOMEN: There is no ascites. There is a paucity of intraperitoneal fat and patient is cachectic. LIVER: There are no focal hepatic lesions nor dilatation of intrahepatic ducts. GALLBLADDER/BILIARY: There is a 1 cm gallstone in the gallbladder lumen noted. The gallbladder does not appear edematous. There is no pericholecystic fluid. CBD is not dilated. PANCREAS: Pancreas is atrophic. No obvious mass. SPLEEN: Spleen is not enlarged. There are no intrasplenic lesions. Splenic and portal veins are patent. ADRENALS: There are no significant adrenal masses. KIDNEYS: There is small benign cortical cysts in both kidneys which do not require further workup. The largest of the cysts measures 2 cm and is in the inferior pole of the left kidney. No solid renal masses.. No calculi. No hydronephrosis. ABDOMINAL AORTA: Abdominal aorta is not enlarged. LYMPH NODES: There is no retroperitoneal nor paraaortic adenopathy. ABDOMINAL WALL: No evidence of significant anterior abdominal wall hernia. Subtle evidence of a right inguinal hernia noted. GI: There are dilated loops of bowel and their is abundant fecal material in the distal colon. There is a subtle suggestion of some possible free air adjacent to the spleen. However, it is difficult to determine if this is extra luminal or with in the colon at this level. PELVIS: LYMPH NODES: There is no intrapelvic nor inguinal adenopathy. GI: Appendix cannot be identified.No evidence of sigmoid diverticulitis. URINARY BLADDER: No calculi nor masses evident REPRODUCTIVE: Prostate small or surgically absent. OSSEOUS: No significant osseous lesions. No acute fractures. IMPRESSION: 1. Compared to CT scan of 10/06/2024 there is prominent area of new infiltrate in the right upper lobe. Smaller areas of infiltrate are noted in the right middle lobe and the left lower lobe. There are no pleural effusions. 2. Cholelithiasis without evidence of obvious acute cholecystitis. 3. Dilated bowel loops which are associated with abundant fecal material in the distal colon. 4. There is a suggestion of possible free air in the left flank but is very difficult to determine if this is extra luminal or intraluminal within the colon at this level. Recommend acute abdominal plain film series to help determine if there is free intraperitoneal air. EXAM: XR ABD FLAT UPRIGHT PA CHEST Date of Exam:10/30/2024 CLINICAL HISTORY: abd pain. TECHNIQUE: 2D digital imaging was performed. COMPARISON: CR XR PORTABLE CHEST AP from 07/03/2024 FINDINGS: 3 views: There is significant infiltrate in the right upper lobe, corresponding to what is seen on CT scan today. There is also mild infiltrate in the posterior basal segment of the left lower lobe-retrocardiac region. Heart size is normal. No pleural effusions. No pulmonary edema. There are air-filled small and large bowel loops in the abdomen and pelvis. No obvious free intraperitoneal air. IMPRESSION: No obvious free intraperitoneal air. Right upper lobe infiltrate. Left lower lobe infiltrate. No pleural effusions. Labs 10/31/24 05:55 10/30/24 16:20 Labs: Laboratory Results - last 24 hr 10/30/24 16:20 WBC 10.47 RBC 4.04 L Hgb 11.3 L Hct 35.4 L MCV 88 MCH 28.0 MCHC 31.9 L RDW 15.1 H Plt Count 170 MPV 10.6 Immature Gran % 0.0 Neutrophils % 77.0 Band Neutrophils % 2 Lymphocytes % 6.0 Atypical Lymphs % 2 Monocytes % 13.0 Eosinophils % 0.0 Basophils % 0.0 Nucleated RBC % 0.0 Absolute Neutrophils 8.27 H Absolute Lymphocytes 0.84 L Absolute Monocytes 1.36 H Absolute Eosinophils 0.00 Absolute Basophils 0.00 RBC Morphology Normal VBG Lactate 1.9 H Sodium 142 Potassium 4.4 Chloride 106 Carbon Dioxide 26.7 Anion Gap 9.3 BUN 47 H Creatinine 1.7 H Est GFR (CKD-EPI 2020) 42.30 Glucose 168 H Calcium 8.0 L Total Bilirubin 0.33 AST 33 ALT 34 Alkaline Phosphatase 118 H Total Protein 6.1 L Albumin 2.6 L Lipase 127 H Procalcitonin 0.98 Last Vital Signs Temp 37.1 C 10/30/24 15:21 Pulse 82 10/30/24 17:31 Resp 17 10/30/24 17:31 BP 99/44 L 10/30/24 17:31 Pulse Ox 98 10/30/24 17:31 Time Spent Time spent with Patient: >75 minutes Time was spent: preparing to see the patient(eg.review tests), obtaining and/or reviewing separately otained hiistory, ordering medications,tests, procedures, indepentently interpreting results and care coordination
[2024-10-30] MEDS: CEFEPIME 2 GM in Normal Saline 100 ML IVPB (19:39)
[2024-10-30 19:56] LABS: Bilirubin Negative (Negative); Blood Moderate (Negative); Clarity Clear (Clear); Glucose Negative (Negative); Ketones Negative (Negative); Leukocyte Esterase Small (Negative); Nitrite Positive (Negative); Specific Gravity 1.015 (1.005-1.025); Urobilinogen 0.2 mg/dL (Up to 0.2)
[2024-10-30 20:08] LABS: Bacteria Moderate HPF (Negative); C & S Indicated? Yes; Casts 0-2 Hyaline LPF (Negative); Crystals Negative HPF (Negative); Epithelial Cells Few HPF (Negative); Mucus Negative (Negative); Other Cells Rare Transitional (Negative)
[2024-10-30] MEDS: VANCOMYCIN/WATER (PEG) 1.5 GM/300 ML BAG IVPB (20:20)
[2024-10-30 20:37] LABS: COVID-19 PCR Negative (Negative); Influenza A PCR Negative (Negative); Influenza B PCR Negative (Negative); RSV PCR Negative (Negative)
[2024-10-30 20:38] LABS: Source NASOPHARYNX
[2024-10-30] MEDS: Normal Saline Flush 10 ML SYR IVP (22:30)
[2024-10-30] MEDS: Normal Saline 1,000 ML 150 ML IV (22:44)
[2024-10-30] MEDS: Heparin 5,000 UNITS/ML VIAL 5000 UNITS SC (23:14)
[2024-10-30] MEDS: Mirtazapine 15 MG TAB 7.5 MG PO (23:20)
[2024-10-31] VITALS (56 sets, daily range): BP systolic 67–116; BP diastolic 32–75; PULSE 56–83; RESP 10–19; TEMP 37; O2SAT 93–98
[2024-10-31 00:06] LABS: TSH 1.54 uIU/mL (0.36-3.74)
[2024-10-31] MEDS: Normal Saline 1,000 ML 150 ML IV ×3 (04:58→19:51)
[2024-10-31 06:44] LABS: HCT 35.5 % (40.0-50.0); HGB 11.3 g/dL (13.5-17.5); MCH 28.2 pg (27.0-33.0); MCHC 31.8 % (32.0-36.0); MCV 89 fL (80-95); MPV 10.5 fL (8.0-11.0); Platelet Count 172 10^3/uL (130-400); RBC 4.01 10^6/uL (4.36-5.78); RDW 15.2 % (11.8-14.1); RDW-SD 49.4 fL; WBC 6.08 10^3/uL (4.4-10.8)
--- NOTE | 2024-10-31 06:49 | W.PC.ACHO ---
Registration Status: Primary Language: Preferred Language: ED Information & Data Chief Complaint GenMedical 10/30/24 16:09 Triage Note Pt arrives to ED via EMS for 10/30/24 15:03 respiratory distress. 95% on RA upon arrival. Caregiver reports a worsening cough. Hypotension reported by EMS Medical / Surgical History (Last Reviewed 10/30/24 @ 22:27 by Amrit Don MD) Failure to thrive in adult Abnormal weight loss Pneumonia History of prediabetes Family history of malignant neoplasm of digestive organs Blindness/low vision History of colon polyps Dyspnea History of squamous cell carcinoma Hyperlipidemia Not for resuscitation Anxiety Villous adenoma of rectum (~08/11/22) Facial basal cell cancer Sessile colonic polyp Partial blindness Family hx of colon cancer (Last Reviewed 10/30/24 @ 22:27 by Amrit Don MD) History of colonoscopy with polypectomy (~08/11/22) History of colonoscopy (~09/2023) Most Recent Vital Signs Temperature 36.7 C 10/30/24 22:47 Temperature Source Temporal Artery Scan 10/30/24 22:47 Pulse 58 L 10/31/24 02:16 Pulse 58 L 10/31/24 02:16 Respiratory Rate 10 L 10/31/24 02:16 Respiratory Effort Non-Labored 10/30/24 22:47 Respiratory Depth Shallow 10/30/24 22:47 Respiratory Pattern Normal 10/30/24 22:47 Blood Pressure 104/68 10/31/24 02:16 Blood Pressure Mean 78 10/31/24 02:16 Blood Pressure Position Left Lateral 10/30/24 22:47 Pulse Oximetry 96 10/31/24 02:16 Oxygen Delivery Method Room Air 10/30/24 22:47 Oxygen Flow Rate 0 10/30/24 22:47 Pain Level 5 10/30/24 15:21 Comment [email or web address] 10/31/24 01:30 Allergies No Known Allergies Allergy (Verified 10/30/24 15:12) Precautions Isolation Droplet precaution 10/30/24 15:20 Active Medications Generic Name Dose Route Start Last Admin Trade Name Freq PRN Reason Stop Dose Admin Heparin Sodium (Porcine) 5,000 units 10/30/24 23:00 10/30/24 23:14 Heparin 5,000 Units/Ml Vial SC 5,000 units 0600,1400,2200 TOM Administration Norepinephrine Bitartrate 8 mg in 250 mls @ 9.375 mls/hr 10/30/24 16:00 10/31/24 01:30 IV 4 mcg/min INFUSION TOM 7.5 mls/hr Titration Protocol 5 MCG/MIN Sodium Chloride 1,000 mls @ 150 mls/hr 10/30/24 22:28 10/31/24 04:58 Saline 1000ml Bag IV 150 mls/hr INFUSION TOM Administration Insulin Aspart 0 units 10/30/24 22:00 10/30/24 23:36 Insulin Aspart 300 Units/3 Ml Pen SC Not Given 0800,1200,1700,2200 TOM Protocol Iohexol 100 ml 10/30/24 17:15 10/30/24 17:08 Omnipaque 350 Mg/Ml 100 Ml Btl IJ 11/29/24 23:59 100 ml DIRECTED TOM Administration Mirtazapine 7.5 mg 10/30/24 23:00 10/30/24 23:20 Mirtazapine 15 Mg Tab PO 7.5 mg HS TOM Administration Nystatin 0 gm 10/30/24 23:00 10/31/24 00:00 Nystatin Powder 15 Gm Jar TP 1 applic BID TOM Administration Sodium Chloride 0 ml 10/30/24 20:00 10/30/24 22:30 Normal Saline Flush 10 Ml Syr IVP 40 ml BID TOM Administration Sodium Chloride 50 ml 10/30/24 17:15 10/30/24 17:08 Normal Saline - Diluent 50 Ml Vial IJ 50 ml .FOR DI USE TOM Administration IV IV Catheter Type [Right Peripheral IV Forearm] IV Catheter Type [Left Wrist] Saline Lock IV Catheter Gauge [Right 20 Forearm] IV Catheter Gauge [Left Wrist] 20 Diet Orders Category Date Time Status Diabetes Consistent CHO/Heart Healthy [DIET] Nutrition 10/31/24 Breakfast Active Diagnostics 10/31/24 10/30/24 10/30/24 Range/Units 05:55 19:50 19:42 WBC Pending (4.4-10.8) 10^3/uL RBC Pending (4.36-5.78) 10^6/uL Hgb Pending (13.5-17.5) g/dL Hct Pending (40.0-50.0) % MCV Pending (80-95) fL MCH Pending (27.0-33.0) pg MCHC Pending (32.0-36.0) % RDW Pending (11.8-14.1) % Plt Count Pending (130-400) 10^3/uL MPV Pending (8.0-11.0) fL Immature Gran % % Neutrophils % % Band Neutrophils % % Lymphocytes % % Atypical Lymphs % % Monocytes % % Eosinophils % % Basophils % % Nucleated RBC % (0.0-0.3) % Absolute Neutrophils (1.2-6.7) 10^3/uL Absolute Lymphocytes (1.2-3.4) 10^3/uL Absolute Monocytes (0.1-0.8) 10^3/uL Absolute Eosinophils (0.0-0.7) 10^3/uL Absolute Basophils (0.0-0.2) 10^3/uL RBC Morphology PT Pending INR Pending VBG Lactate (0.6-1.4) mmol/L Sodium Pending (136-145) mmol/L Potassium Pending (3.5-5.1) mmol/L Chloride Pending (98-107) mmol/L Carbon Dioxide Pending (21.0-32.0) mmol/L Anion Gap Pending (3-11) mmol/L BUN Pending (7-18) mg/dL Creatinine Pending (0.70-1.30) mg/dL Est GFR (CKD-EPI 2020) Pending (mL/min/1.73m2) Glucose Pending (74-106) mg/dL Calcium Pending (8.5-10.1) mg/dL Total Bilirubin Pending (0.2-1.0) mg/dL AST Pending (15-37) U/L ALT Pending (16-63) U/L Alkaline Phosphatase Pending (46-116) U/L Total Protein Pending (6.4-8.2) g/dL Albumin Pending (3.4-5.0) g/dL Lipase (<78) U/L Procalcitonin ng/mL TSH (0.36-3.74) uIU/mL Urine Color Yellow (Yellow) Urine Clarity Clear (Clear) Urine pH 5.0 (5-8) Ur Specific [place] 1.015 (1.005-1.025) Urine Protein 30 H (Neg-Trace) mg/dL Urine Ketones Negative (Negative) mg/dL Urine Blood Moderate H (Negative) Urine Nitrite Positive H (Negative) Urine Bilirubin Negative (Negative) Urine Urobilinogen 0.2 (Up to 0.2) mg/dL Ur Leukocyte Esterase Small H (Negative) Urine RBC 10-20 H (0-2) HPF Urine WBC 10-20 H (0-5) HPF Ur Epithelial Cells Few (Negative) HPF Urine Crystals Negative (Negative) HPF Urine Bacteria Moderate (Negative) HPF Urine Casts 0-2 Hyaline (Negative) LPF Urine Mucus Negative (Negative) Urine Other Rare Transitional (Negative) Ur Culture Indicated? Yes Urine Glucose Negative (Negative) mg/dL Random Vancomycin Pending COVID-19 Source NASOPHARYNX SARS-CoV-2 (PCR) Negative (Negative) Influenza Type A (PCR) Negative (Negative) Influenza Type B (PCR) Negative (Negative) RSV (PCR) Negative (Negative) 10/30/24 Range/Units 16:20 WBC 10.47 (4.4-10.8) 10^3/uL RBC 4.04 L (4.36-5.78) 10^6/uL Hgb 11.3 L (13.5-17.5) g/dL Hct 35.4 L (40.0-50.0) % MCV 88 (80-95) fL MCH 28.0 (27.0-33.0) pg MCHC 31.9 L (32.0-36.0) % RDW 15.1 H (11.8-14.1) % Plt Count 170 (130-400) 10^3/uL MPV 10.6 (8.0-11.0) fL Immature Gran % 0.0 % Neutrophils % 77.0 % Band Neutrophils % 2 % Lymphocytes % 6.0 % Atypical Lymphs % 2 % Monocytes % 13.0 % Eosinophils % 0.0 % Basophils % 0.0 % Nucleated RBC % 0.0 (0.0-0.3) % Absolute Neutrophils 8.27 H (1.2-6.7) 10^3/uL Absolute Lymphocytes 0.84 L (1.2-3.4) 10^3/uL Absolute Monocytes 1.36 H (0.1-0.8) 10^3/uL Absolute Eosinophils 0.00 (0.0-0.7) 10^3/uL Absolute Basophils 0.00 (0.0-0.2) 10^3/uL RBC Morphology Normal PT INR VBG Lactate 1.9 H (0.6-1.4) mmol/L Sodium 142 (136-145) mmol/L Potassium 4.4 (3.5-5.1) mmol/L Chloride 106 (98-107) mmol/L Carbon Dioxide 26.7 (21.0-32.0) mmol/L Anion Gap 9.3 (3-11) mmol/L BUN 47 H (7-18) mg/dL Creatinine 1.7 H (0.70-1.30) mg/dL Est GFR (CKD-EPI 2020) 42.30 (mL/min/1.73m2) Glucose 168 H (74-106) mg/dL Calcium 8.0 L (8.5-10.1) mg/dL Total Bilirubin 0.33 (0.2-1.0) mg/dL AST 33 (15-37) U/L ALT 34 (16-63) U/L Alkaline Phosphatase 118 H (46-116) U/L Total Protein 6.1 L (6.4-8.2) g/dL Albumin 2.6 L (3.4-5.0) g/dL Lipase 127 H (<78) U/L Procalcitonin 0.98 ng/mL TSH 1.54 (0.36-3.74) uIU/mL Urine Color (Yellow) Urine Clarity (Clear) Urine pH (5-8) Ur Specific [place] (1.005-1.025) Urine Protein (Neg-Trace) mg/dL Urine Ketones (Negative) mg/dL Urine Blood (Negative) Urine Nitrite (Negative) Urine Bilirubin (Negative) Urine Urobilinogen (Up to 0.2) mg/dL Ur Leukocyte Esterase (Negative) Urine RBC (0-2) HPF Urine WBC (0-5) HPF Ur Epithelial Cells (Negative) HPF Urine Crystals (Negative) HPF Urine Bacteria (Negative) HPF Urine Casts (Negative) LPF Urine Mucus (Negative) Urine Other (Negative) Ur Culture Indicated? Urine Glucose (Negative) mg/dL Random Vancomycin COVID-19 Source SARS-CoV-2 (PCR) (Negative) Influenza Type A (PCR) (Negative) Influenza Type B (PCR) (Negative) RSV (PCR) (Negative) 10/30/24 19:42 Urine Culture - Pending Urine - Reflex from Ua 10/30/24 18:40 Blood Culture - Pending Blood 10/30/24 16:20 Blood Culture - Pending Blood [id number] Documentation Fingerstick Glucose Start: 10/30/24 19:44 Freq: AC & HS Status: Active Protocol: Activity Type Activity Date Activity User E-sign Co-sign Detail Recorded Client Recorded Date Recorded By Document 10/30/24 23:35 BKG DAEMON(3) [id number] 10/30/24 23:36 BKG DAEMON(4) Intake and Output - 24 Hour Total 10/30/24 14:46 thru 10/31/24 05:58 Intake Total 7.340 Output Total 400 Balance 1677.340 Weight 54.4 kg Intake: IV 7.340 Output: Urine 400 Other: Urine Color Light Siomara Urine Appearance Clear Comment daniel is patent Urinary Catheter Urinary Catheter Date of 10/30/24 Insertion [2-way Urethral] Time of insertion [2-way 19:48 Urethral] Falls Risk Assessment History of Falls Previous History 10/30/24 22:47 Contributing Factors Unstable 10/30/24 15:21 Ambulatory Aids Independent 10/30/24 15:21 Tubes/Lines With any additional score 10/30/24 15:21 Gait Evaluation No gait disturbance 10/30/24 15:21 Cognition Cognitive impairment 10/30/24 15:21 Fall Total Score 15 10/30/24 22:47 Level of Risk Standard/Low Risk 10/30/24 22:47 Problems (Last Reviewed 10/30/24 @ 22:27 by Amrit Don MD) Acute hypotension (Acute) Pneumonia (Acute) UTI (urinary tract infection) (Acute) Hyperglycemia without ketosis (Acute) Pancreatitis, acute (Acute) Cholelithiasis (Chronic) Shock due to systemic infection (Acute) Acute dehydration (Acute) Pneumonia (Acute) Cognitive changes (Acute) Notes 10/30/24 17:27 Nursing Notes by Miranda Monzon Nursing Note: Pt not given 50mg/1ml dose of ketamine for imaging. 1ml dose wasted with Gaye [place], Unable to confirm waste in Pyxis. Initialized on 10/30/24 17:27 - END OF NOTE v v v v v v v v v Sending and/or Receiving Nurses: Please use comment section below to note any information pertinent to the patient hand-off not included above. Information / Comments: Report received from: RODNEY Souza all mandeep answered: yes
[2024-10-31 06:50] LABS: INR 1.1 (0.9-1.1); Prothrombin Time 11.3 sec (9.1-11.1)
[2024-10-31 07:01] LABS: ALT 45 U/L (16-63); AST 53 U/L (15-37); Albumin 2.5 g/dL (3.4-5.0); Alkaline Phosphatase 120 U/L (46-116); Anion Gap 5.6 mmol/L (3-11); BUN 42 mg/dL (7-18); CO2 27.4 mmol/L (21.0-32.0); CREATININE 1.3 mg/dL (0.70-1.30); Calcium 8.1 mg/dL (8.5-10.1); Chloride 109 mmol/L (98-107); Estimated GFR 58.37 (mL/min/1.73m2); Glucose 88 mg/dL (74-106); Sodium 142 mmol/L (136-145); Total Protein 5.5 g/dL (6.4-8.2); Vancomycin, Random 16.3 ug/mL
[2024-10-31] MEDS: Heparin 5,000 UNITS/ML VIAL 5000 UNITS SC ×3 (07:40→22:55)
--- NOTE | 2024-10-31 08:00 | DI.US_ITS ---
APPROVED REPORT EXAM: Comprehensive 2D, Doppler, and color-flow Echocardiogram Patient Location: In-Patient Room/Bed: MLM190 Tanker Serviceman: Miguelina Sauceda RDCS (AE) Indications: Recurrent aspiration with dehydration and shock Other Information Study Quality: Poor. Technically limited study due to body habitus, inability to position patient. Conclusion Technically very limited study. Left ventricle appears normal in size wall thickness and overall systolic function Right ventricle appears grossly normal in size and function Both atria are not significantly enlarged Within the limits of the study, no significant valvular disease is identified Wall motion Left Ventricle Technically limited imaging window. Patient holds arms in contracted position. Unable to move and karen ge. Unable to position patient. The overall left ventricular systolic function appears normal. Region al wall motion is not well visualized but grossly normal. Right Ventricle Right ventricle is not well visualized. Right ventricular systolic function could not be assessed. Atria Left atrium is not well visualized. Right atrium is not well visualized. Aortic Valve The aortic valve is not well visualized. Aortic valve is probably trileaflet. There is no aortic valv ular stenosis. Mitral Valve The mitral valve is normal in structure. No evidence of mitral valve stenosis. Trace mitral regurgita tion. Tricuspid Valve The tricuspid valve is normal in structure. There is no tricuspid valve stenosis. Trace tricuspid reg urgitation. Unable to assess PA pressure. Pulmonic Valve Pulmonic valve is not well visualized. There is no pulmonic valvular stenosis. There is no pulmonic v alvular regurgitation. Great Vessels The aortic root is normal in size. Ascending aorta is not well visualized. The IVC was not visualized . Technically limited subcostal imaging. Arms are in contracted position. Unable to move. Pericardium Technically limited subcostal imaging. Unable to move patients arms to reach in to scan. 2D Dimensions Ao Root d 2.89 cm M: 3.1 - 3.7 LV Diastology MV E' medial 0.083 (>0.07 m/s) MV E Vmax 0.57 (0.4-1.3 m/s) MV E/E' MED 6.88 (<14) MV A Vmax 0.75 (0.4-1.3 m/s) MV E' lateral 0.104 (>0.1 m/s) E/A Ratio 0.8 MV E/E' LAT 5.52 (<14) MV E' Average 0.094 m/s MV E/E'(average) 6.13 Aortic Valve AoV Vmax 0.91 m/s LVOT Vmax 0.70 m/s AoV Peak Grad 3.3 mmHg LVOT Peak Grad 1.9 mmHg AoV Area (Vmax) 2.52 cm2 LVOT VTI 0.152 m AoV VTI 0.204 m LVOT Mean Grad 1.0 mmHg AoV Mean Robin. 0.72 m/s LVOT SV 49.79 mL AoV Mean Grad 2.2 mmHg LVOT Diam s 2.00 cm AoV Area (VTI) 2.44 cm2 AV Regurg Peak Gr. 3.30 mmHg Velocity Ratio 0.77 Mitral Valve MV DT 332 (160-240 msec) MV Vmax TIPS 0.82 m/s MV Mean Grad 1.0 (<2mmHg) MV VTI 0.212 m Pulmonary Valve PV Vmax 0.70 (0.5-1.5 m/s) RVOT Vmax 0.62 m/s PV Peak Grad 2.0 mmHg RVOT Peak Gr. 1.5 mmHg PV Mean Robin 0.57 m/s RVOT VTI 0.173 m PV Mean Grad 1.4 mmHg RVOT Mean Gr. 0.9 mmHg
--- NOTE | 2024-10-31 08:41 | INITIAL_ITS ---
Date of service: 10/31/24 Time of Service: 08:41 Care Management Initial Assmt Initial Assessment Reason for Hospitalization: Pneumonia Functional Status/Living Situation Patient Presentation: Gera was sitting up in bed visiting with his director of customer service Ashley and friend Raj. Gera is unable to communicate much verbally but Ashley and Raj were able to provide information. Stevie has 2 brothers and a [id number] that provide some support. Until about 6 months ago, Gera was able to perform most of his ADLs with minimum assistance. At this point he requires total care. Ashley informed that Gera has always had a healthy appetite and as recently as last week she took him out for a ride and he ate chicken nuggets. They both commented on his weight loss and the fact that his eating pattern had not changed. Gera lives in in a private home in [facility] with his caregiver Marjorie. He has been with her about 3 months. He was with another caregiver for many years. Gera has a guardian, Alberta Haydee, who has been with him for a long time and knows him well. A Palliative Care consult has been requested and Dr. Valles would like both Marjorie and Alberta to participate. Gera appears to be failing and goals of care need to be reviewed. Due to scheduling conflicts, the meeting will likely be remote over the phone and will probably take place tomorrow morning. Town of Residence: [place], [place] Resides with: Other (caregivers) Significant Other/Family: [facility] Employment Status: Unemployed Instrumental Activities of Daily Living (ADLs): Requires support with Dishes/food prep, Social Security Assessor, Groceries, Heat/Utilities, Laundry, Tr ansportation and Other Medications Medication Management: No Issues/Barriers identified Advance Directives Advance Directives: Do you have an Advance Directive: N 02/04/21 13:02 AD On File at [facility]: N 02/04/21 13:02 Date Asked 10/30/24 10/30/24 15:14 AD Date Reviewed COLST On File at [facility] Yes 07/03/24 17:06 COLST Date Scanned 07/03/24 07/03/24 17:06 Code Status Resuscitation Status DNR/DNI Insurance Coverage/Financial Issues Insurance: Medicare Medicaid Care Team Visit Care Team Role Provider Type Nori Arita MD Primary Care Provider [facility] STAFF PHYSICIAN Amrit Don MD Emergency Provider [facility] STAFF PHYSICIAN Dat Martel Admit Provider NON-[facility] STAFF PHYSICIAN Attending Provider Discharge Potential Discharge Needs: PCP F/U Appt Anticipated Barriers to Discharge: Medical Status Patient/Family Education Needs: Review discharge instructions, discuss Ask Me Three Transportation: Other (to be determined by disposition) Plan: Gera's discharge plan is unclear. He has been declining at home and has had decreased intake leading to dehydration. A Palliative consult has been requested to further explore goals of care in this gentleman who is already a DNR/DNI in code status.CM will follow and continue to assess for discharge needs. PFSH All Active Problems (Updated 10/31/24 @ 11:59 by Newton Anaya MD) Unintended weight loss (Acute) Developmental disability (Acute) Nonverbal (Acute) Advanced care planning/counseling discussion (Acute) Palliative care patient (Acute) Abnormal weight loss (Acute) Acute hypotension (Acute) Pneumonia (Acute) UTI (urinary tract infection) (Acute) Hyperglycemia without ketosis (Acute) Pancreatitis, acute (Acute) Cholelithiasis (Chronic) Shock due to systemic infection (Acute) Acute dehydration (Acute) SILVANA (acute kidney injury) (Acute) Choking episode (Acute) Aspiration into airway (Acute) Rash (Acute) Pneumonia (Acute) Severe sepsis (Acute) Tubular adenoma of colon (Acute ~09/2023) Stasis dermatitis of 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 venous hypertension (Acute) Onychomycosis (Acute) Skin rash (Acute) Pain, foot (Acute) Nail dystrophy (Acute) Camptocormia (Acute) Cognitive changes (Acute) Excess ear wax (Acute ~08/11/22) Urinary incontinence (Acute) Squamous cell carcinoma (Acute) Myalgia (Acute) Tubulovillous adenoma (Acute) Colon polyps (Acute) adenomatous polyp 2022 repeat in 2025 Strain of right hip (Acute) Seborrheic keratoses (Acute) Impaired fasting glucose (Acute) Intellectual disability (Acute) PRINCE (dyspnea on exertion) (Acute) Medical History Failure to thrive in adult Abnormal weight loss Pneumonia History of prediabetes Family history of malignant neoplasm of digestive organs Blindness/low vision History of colon polyps Dyspnea History of squamous cell carcinoma Hyperlipidemia Not for resuscitation Anxiety 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 Per caregiver has extreme fear of doctors and medical providers. Proivder states to keep things as low samano as possible and not high energy. SDOH(Care Management) Screening Will the Patient Participate in the Screening?: Unable to obtain Health Related Social Needs Health related social needs details: Pt unable to verbalize needs
[2024-10-31] MEDS: Nystatin POWDER 15 GM JAR TP ×3 (09:29→20:11)
[2024-10-31] MEDS: Ketoconazole 2% CREAM 15 GM TUBE TP (09:29)
[2024-10-31] MEDS: Normal Saline Flush 10 ML SYR IVP ×2 (09:29→20:13)
[2024-10-31] MEDS: CEFEPIME 2 GM in Normal Saline 100 ML IVPB ×2 (09:30→20:12)
--- NOTE | 2024-10-31 09:44 | W.PALLCONSUL ---
Date of service: 10/31/24 Time of Service: 13:27 History of Present Illness Narrative: Stevie Boss is a 74-year-old gentleman with intellectual disability who is nonverbal who has lived in supportive living situations. He has a history of recurrent aspiration pneumonia and various dermatological issues. History today from chart and caregiver. He has had significant weight loss over the last year (33 kg over the last 12 months , 16 kg over the last 4 months). Over the last 6 months he has been come increasingly weaker, now barely ambulates around his house, uses a wheelchair whenever outside. Now needs help with dressing. Home care provider describes that he has had marked decrease in food intake over the last 3 months. Also reported is a June 2024 admission for UTI. He was brought by caregivers to [facility] ED yesterday who are concerned about his inability to get up and walk around, to eat or drink all day. He was diagnosed with pneumonia seen in several lobes on CT. He was also dehydrated and had hypotension requiring pressors, lab evidence of mild pancreatitis with present of a 1 cm gallstone. Palliative care team was consulted to help patient's guardian and caregiver with goals of care discussion in the setting of 6+ months of increasing weakness and dramatic weight loss. Of note, patient has always declined to have any blood work or testing done. He hates needles. Therefore there is been no lab work or imaging done over the last 6 months in face of the weight loss and increasing weakness. Patient did have abdominal ultrasound, chest abdominal and pelvic CT, performed during this admission. No obvious malignancy or possible cause of such a sharp decline was identified. He did have a 1 cm gallbladder stone. Hospitalist concerned that there is an underlying malignancy, perhaps gastric or esophageal malignancy. Today I was able to review his [facility] chart, talk with one of his part-time caregivers. Unfortunately we are unable to schedule family meeting with his court appointed guardian and his home care provider. I note that he is listed as DNR/DNI, but there is no COLST on file. There is a probate court document which gives his court appointed guardian Alberta Hubbard the authority to change his CODE STATUS to DNR or DNI or DNR/DNI or to refuse treatment should she think it appropriate. Unfortunately I was unable to discuss this with her today. Patient unable to provide any history. Also unable to reply reliably to help with review of systems regarding symptoms. Care Team: Primary Care physician: Nori Sarkar DDS team Social HX: Marital Status: Lives with Caregiver Anamaria Cesar. Case management by [facility] program at [facility]. Patient previously resident of [place]. Brother Tano Hubbard Occupation: NA Children: None Hobbies:Stuffed animals, cartoons Additional Services:[facility] team. Impression of currents health status: N/A What bothers you the most: N/A What worries you the most: N/A Goals: N/A Current information preferences: Function: One of his daytime care providers is present and offers the following information: Ambulation: Was ambulating independently until about 2 months ago. Since then has needed to use wheelchair whenever outside the home. Can get around the house with difficulty. ADLs: Recently needing help with dressing. iADLs: Dependent Hearing: Grossly normal Vision: Coke bottle glasses , however seems to see in the distance fine without glasses Cognition: Hard to discern. Falls: Yes Driving: No Palliative Performance Scale % Ambulation Activity and Evidence of Disease Self Care Intake Level of Consciousness 100 Full Normal activity, no evidence of disease Full Normal Full 90 Full Normal activity, some evidence of disease Full Normal Full 80 Full Normal activity with effort, some evidence of disease Full Normal or reduced Full 70 Reduced Unable to do normal work, some evidence of disease Full Normal or reduced Full 60 Reduced Unable to do hobby or some housework, significant disease Occasional assist necessary Normal or reduced Full or confusion 50 Mainly sit/lie Unable to do any work, extensive disease Considerable assistance required Normal or reduced Full or confusion 40 Mainly in bed Unable to do any work, extensive disease Mainly assistance Normal or reduced Full, drowsy, or confusion 30 Totally bed bound Unable to do any work, extensive disease Total care Reduced Full, drowsy, or confusion 20 Totally bed bound Unable to do any work, extensive disease Total care Minimal sips Full, drowsy, or confusion 10 Totally bed bound Unable to do any work, extensive disease Total care Mouth care only Drowsy or coma 0 - - - - Patient Score: 50 Spiritual history: Enck you Palliative review of systems: Patient unable to reliably give answers. Pain: Dyspnea: GI symptoms: Appetite: Depression: Anxiety: None Emotional Distress: Spiritual/Existential Distress: Labs: Today Cr: 1.3 (baseline 1.0) Liver panel: Pretty normal Albumin: 2.5 CBC: Hemoglobin 11.3 Advanced Care Planning: Advanced Directive: None on file Health Care Agent: Patient's guardian is Alberta Hubbard COLST: Chart currently indicates DNR/DNI. There is no COLST on file. There is a May [address] court granting Alberta Hubbard, patient's guardian, the authority to change patient's CODE STATUS to DNR/DNI/do not transport or any combination thereof, at her discretion Limitations: Assessment and Plan Assessment and plan (1) Shock due to systemic infection: Status: Acute Assessment and plan: Gera Lew is a 74-year-old gentleman with lifelong developmental delay. He had been noted by PCP and caregivers to be experiencing steady and dramatic decline with weakness and weight loss over the last 6 months. Then admitted yesterday with multilobular pneumonia. For now, Gera seems quite comfortable in the hospital. Reportedly pleasant and cooperative as per nursing staff. Hospitalist feel that patient most likely has occult malignancy causing this dramatic decline, perhaps a GI malignancy not showing up on CT scan (gastric, esophageal).Metabolic workup shows some azotemia, normal LFTs with mildly elevated lipase, low albumin. CT abdomen and chest shows the pneumonia, 1 cm gallbladder stone, and nothing else particularly sinister. By report, Gera has consistently been resistant to having any invasive procedures done such as lab work, needlesticks, x-rays in the past. Apparently he was agreeable to having some imaging done on the day of admission and has allowed IVs to be started and blood work to be done while in the hospital. However, by report, caregivers and guardian Would like to continue to respect his expressed wishes not to have investigations or aggressive treatment done. Based on this, for now I would recommend holding off on any procedures such as endoscopy. I think this could be quite traumatic for him with the need for IV access and sedation. If there is concern for possible ulcer, stool samples could be sent for H. pylori and he could be treated empirically with PPI until results are back. Case management has arranged for family meeting tomorrow 11/01/2024 with guardian and home care provider to go over goals of care. This meeting should bring much more clarity to the situation. Additionally if guardian endorses DNI/DNR, we will draw up a formal COLST form for her to sign. (2) Pancreatitis, acute: Status: Acute (3) Pneumonia: Status: Acute (4) Abnormal weight loss: Status: Acute (5) Palliative care patient: Status: Acute (6) Advanced care planning/counseling discussion: Status: Acute (7) Nonverbal: Status: Acute (8) Developmental disability: Status: Acute Assessment and plan: This note was dictated using speech recognition software. Attempt was made at proofreading, but errors may be present. Please call with questions. [facility] All Active Problems (Updated 10/31/24 @ 11:59 by Newton Anaya MD) Unintended weight loss (Acute) Developmental disability (Acute) Nonverbal (Acute) Advanced care planning/counseling discussion (Acute) Palliative care patient (Acute) Abnormal weight loss (Acute) Acute hypotension (Acute) Pneumonia (Acute) UTI (urinary tract infection) (Acute) Hyperglycemia without ketosis (Acute) Pancreatitis, acute (Acute) Cholelithiasis (Chronic) Shock due to systemic infection (Acute) Acute dehydration (Acute) SILVANA (acute kidney injury) (Acute) Choking episode (Acute) Aspiration into airway (Acute) Rash (Acute) Pneumonia (Acute) Severe sepsis (Acute) Tubular adenoma of colon (Acute ~09/2023) Stasis dermatitis of 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 venous hypertension (Acute) Onychomycosis (Acute) Skin rash (Acute) Pain, foot (Acute) Nail dystrophy (Acute) Camptocormia (Acute) Cognitive changes (Acute) Excess ear wax (Acute ~08/11/22) Urinary incontinence (Acute) Squamous cell carcinoma (Acute) Myalgia (Acute) Tubulovillous adenoma (Acute) Colon polyps (Acute) adenomatous polyp 2022 repeat in 2025 Strain of right hip (Acute) Seborrheic keratoses (Acute) Impaired fasting glucose (Acute) Intellectual disability (Acute) PRINCE (dyspnea on exertion) (Acute) Medical History Failure to thrive in adult Abnormal weight loss Pneumonia History of prediabetes Family history of malignant neoplasm of digestive organs Blindness/low vision History of colon polyps Dyspnea History of squamous cell carcinoma Hyperlipidemia Not for resuscitation Anxiety 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 Per caregiver has extreme fear of doctors and medical providers. Proivder states to keep things as low samano as possible and not high energy. Exam Narrative Exam Narrative: Thin elderly gentleman. Edentulous. Awake and alert. Smiles. Puts out his hand to shake my hand. Says yes and now and cat and dog as appropriate answers to caregiver who is visiting when I visit. Will not respond to me. Appears to have thick conjunctival discharge but no conjunctival erythema. No respiratory distress or cough during my visit. Results Last Vital Signs Temp 36.7 C 10/30/24 22:47 Pulse 58 L 10/31/24 02:16 Resp 10 L 10/31/24 02:16 BP 104/68 10/31/24 02:16 Pulse Ox 96 10/31/24 02:16 Labs 10/31/24 05:55 10/31/24 05:55 Labs: Laboratory Results - last 24 hr 10/30/24 10/30/24 10/30/24 16:20 19:42 19:50 WBC 10.47 RBC 4.04 L Hgb 11.3 L Hct 35.4 L MCV 88 MCH 28.0 MCHC 31.9 L RDW 15.1 H Plt Count 170 MPV 10.6 Immature Gran % 0.0 Neutrophils % 77.0 Band Neutrophils % 2 Lymphocytes % 6.0 Atypical Lymphs % 2 Monocytes % 13.0 Eosinophils % 0.0 Basophils % 0.0 Nucleated RBC % 0.0 Absolute Neutrophils 8.27 H Absolute Lymphocytes 0.84 L Absolute Monocytes 1.36 H Absolute Eosinophils 0.00 Absolute Basophils 0.00 RBC Morphology Normal PT INR VBG Lactate 1.9 H Sodium 142 Potassium 4.4 Chloride 106 Carbon Dioxide 26.7 Anion Gap 9.3 BUN 47 H Creatinine 1.7 H Est GFR (CKD-EPI 2020) 42.30 Glucose 168 H Calcium 8.0 L Total Bilirubin 0.33 AST 33 ALT 34 Alkaline Phosphatase 118 H Total Protein 6.1 L Albumin 2.6 L Lipase 127 H Procalcitonin 0.98 TSH 1.54 Urine Color Yellow Urine Clarity Clear Urine pH 5.0 Ur Specific [place] 1.015 Urine Protein 30 H Urine Ketones Negative Urine Blood Moderate H Urine Nitrite Positive H Urine Bilirubin Negative Urine Urobilinogen 0.2 Ur Leukocyte Esterase Small H Urine RBC 10-20 H Urine WBC 10-20 H Ur Epithelial Cells Few Urine Crystals Negative Urine Bacteria Moderate Urine Casts 0-2 Hyaline Urine Mucus Negative Urine Other Rare Transitional Ur Culture Indicated? Yes Urine Glucose Negative Random Vancomycin COVID-19 Source NASOPHARYNX SARS-CoV-2 (PCR) Negative Influenza Type A (PCR) Negative Influenza Type B (PCR) Negative RSV (PCR) Negative 10/31/24 05:55 WBC 6.08 RBC 4.01 L Hgb 11.3 L Hct 35.5 L MCV 89 MCH 28.2 MCHC 31.8 L RDW 15.2 H Plt Count 172 MPV 10.5 Immature Gran % Neutrophils % Band Neutrophils % Lymphocytes % Atypical Lymphs % Monocytes % Eosinophils % Basophils % Nucleated RBC % Absolute Neutrophils Absolute Lymphocytes Absolute Monocytes Absolute Eosinophils Absolute Basophils RBC Morphology PT 11.3 H INR 1.1 VBG Lactate Sodium 142 Potassium 4.0 Chloride 109 H Carbon Dioxide 27.4 Anion Gap 5.6 BUN 42 H Creatinine 1.3 Est GFR (CKD-EPI 2020) 58.37 Glucose 88 Calcium 8.1 L Total Bilirubin 0.40 AST 53 H ALT 45 Alkaline Phosphatase 120 H Total Protein 5.5 L Albumin 2.5 L Lipase Procalcitonin TSH Urine Color Urine Clarity Urine pH Ur Specific [place] Urine Protein Urine Ketones Urine Blood Urine Nitrite Urine Bilirubin Urine Urobilinogen Ur Leukocyte Esterase Urine RBC Urine WBC Ur Epithelial Cells Urine Crystals Urine Bacteria Urine Casts Urine Mucus Urine Other Ur Culture Indicated? Urine Glucose Random Vancomycin 16.3 COVID-19 Source SARS-CoV-2 (PCR) Influenza Type A (PCR) Influenza Type B (PCR) RSV (PCR) Time Spent Time Spent with Patient Time Spent(min): 75
--- NOTE | 2024-10-31 09:45 | DI.US_ITS ---
Exam(s) US ABDOMEN LIMITED EXAM: US ABDOMEN LIMITED CLINICAL HISTORY: Cholelithiasis with pancreatitis and dehydration TECHNIQUE: Ultrasound abdomen performed using standard protocol. COMPARISON: CT CT CHEST/ABD/PEL W from 10/30/2024 FINDINGS: The examination was suboptimal as the patient was unable to be repositioned. The pancreas and bile d ucts could not be evaluated due to lack of patient cooperation. GALLBLADDER:There is a gallstone present measuring 1.5 cm. It is within the neck of the gallbladder. The technologist cannot assess mobility of the stone as the patient was unable to be repositioned. No evidence of wall thickening. No pericholecystic fluid identified. DUFF'S SIGN: Could not be assessed. IMPRESSION: 1. Very limited examination due to lack of patient cooperation and inability to reposition the patien t. 2. Cholelithiasis. DATA REPOSITORY:
[2024-10-31] MEDS: VANCOMYCIN/WATER (PEG) 1 GM/200 ML BAG IVPB (11:24)
--- NOTE | 2024-10-31 11:33 | W.PM.PROGNOT ---
Date of Service Date of service: 10/31/24 Time of Service: 17:37 Objective Last Vital Signs Temp 36.7 C 10/30/24 22:47 Pulse 68 10/31/24 10:01 Resp 13 10/31/24 09:02 BP 80/37 L 10/31/24 10:01 Pulse Ox 95 10/31/24 10:01 Laboratory Results - last 24 hr 10/30/24 10/30/24 10/30/24 16:20 19:42 19:50 WBC 10.47 RBC 4.04 L Hgb 11.3 L Hct 35.4 L MCV 88 MCH 28.0 MCHC 31.9 L RDW 15.1 H Plt Count 170 MPV 10.6 Immature Gran % 0.0 Neutrophils % 77.0 Band Neutrophils % 2 Lymphocytes % 6.0 Atypical Lymphs % 2 Monocytes % 13.0 Eosinophils % 0.0 Basophils % 0.0 Nucleated RBC % 0.0 Absolute Neutrophils 8.27 H Absolute Lymphocytes 0.84 L Absolute Monocytes 1.36 H Absolute Eosinophils 0.00 Absolute Basophils 0.00 RBC Morphology Normal PT INR VBG Lactate 1.9 H Sodium 142 Potassium 4.4 Chloride 106 Carbon Dioxide 26.7 Anion Gap 9.3 BUN 47 H Creatinine 1.7 H Est GFR (CKD-EPI 2020) 42.30 Glucose 168 H Calcium 8.0 L Total Bilirubin 0.33 AST 33 ALT 34 Alkaline Phosphatase 118 H Total Protein 6.1 L Albumin 2.6 L Lipase 127 H Procalcitonin 0.98 TSH 1.54 Urine Color Yellow Urine Clarity Clear Urine pH 5.0 Ur Specific [place] 1.015 Urine Protein 30 H Urine Ketones Negative Urine Blood Moderate H Urine Nitrite Positive H Urine Bilirubin Negative Urine Urobilinogen 0.2 Ur Leukocyte Esterase Small H Urine RBC 10-20 H Urine WBC 10-20 H Ur Epithelial Cells Few Urine Crystals Negative Urine Bacteria Moderate Urine Casts 0-2 Hyaline Urine Mucus Negative Urine Other Rare Transitional Ur Culture Indicated? Yes Urine Glucose Negative Random Vancomycin COVID-19 Source NASOPHARYNX SARS-CoV-2 (PCR) Negative Influenza Type A (PCR) Negative Influenza Type B (PCR) Negative RSV (PCR) Negative 10/31/24 05:55 WBC 6.08 RBC 4.01 L Hgb 11.3 L Hct 35.5 L MCV 89 MCH 28.2 MCHC 31.8 L RDW 15.2 H Plt Count 172 MPV 10.5 Immature Gran % Neutrophils % Band Neutrophils % Lymphocytes % Atypical Lymphs % Monocytes % Eosinophils % Basophils % Nucleated RBC % Absolute Neutrophils Absolute Lymphocytes Absolute Monocytes Absolute Eosinophils Absolute Basophils RBC Morphology PT 11.3 H INR 1.1 VBG Lactate Sodium 142 Potassium 4.0 Chloride 109 H Carbon Dioxide 27.4 Anion Gap 5.6 BUN 42 H Creatinine 1.3 Est GFR (CKD-EPI 2020) 58.37 Glucose 88 Calcium 8.1 L Total Bilirubin 0.40 AST 53 H ALT 45 Alkaline Phosphatase 120 H Total Protein 5.5 L Albumin 2.5 L Lipase Procalcitonin TSH Urine Color Urine Clarity Urine pH Ur Specific [place] Urine Protein Urine Ketones Urine Blood Urine Nitrite Urine Bilirubin Urine Urobilinogen Ur Leukocyte Esterase Urine RBC Urine WBC Ur Epithelial Cells Urine Crystals Urine Bacteria Urine Casts Urine Mucus Urine Other Ur Culture Indicated? Urine Glucose Random Vancomycin 16.3 COVID-19 Source SARS-CoV-2 (PCR) Influenza Type A (PCR) Influenza Type B (PCR) RSV (PCR) Time Spent with Patient Time Spent with Patient: 25-34 minutes Time was spent: preparing to see the patient(eg.review tests), obtaining and/or reviewing separately otained hiistory, ordering medications,tests, procedures, referring, communicating with other health career orientation teacher, indepentently interpreting results, counseling the patient and care coordination
--- NOTE | 2024-10-31 11:47 | W.PM.PROGNOT ---
Date of Service Date of service: 10/31/24 Time of Service: 11:47 Assessment and Plan Assessment and plan (1) Severe sepsis: Status: Acute Assessment and plan: will continue with broad spectrum abx and await culture results. Will do an MRSA swab as well. Recheck wbc and inflammatory markers in am (2) Intellectual disability: Status: Acute Assessment and plan: POC d/w legal guardian. See subjective for details (3) Pneumonia: Status: Acute Assessment and plan: as above (4) Aspiration into airway: Status: Acute Assessment and plan: as above. (5) UTI (urinary tract infection): Status: Acute (6) Advanced care planning/counseling discussion: Status: Acute Assessment and plan: pt is on heparin for dvtp (7) Unintended weight loss: Status: Acute Assessment and plan: Notes reviewed from Palliative care states that the pt has lost over 30kilos over the last year. I did d/w the legal guardian that this is concerning for an occult malignancy. CT scan of chest/abd/pelvis did not show any clear masses. Will consider appetitite stimulants as well as an endoscopy. Pt is unable to give history but I do wonder about PUD. Will order a h. pylori in the interim Subjective Subjective Interval history since last seen: PT seen and examined in his room this morning. POC d/w bedside nurse as well as during MDR. I was also able to speak to his legal guardian Alberta AnthonySanti in regards to terminal makeup operator POC and desires. At this point there is no plan for terminal makeup operator nutritional support, specifically a PEG tube. Exam Narrative Exam Narrative: General: appears older than his stated age, but no distress HEENT: Normocephalic, course and facial features, eyes with pupils equal and reactive to light symmetrically, extraocular movement intact and sclera anicteric. Oropharynx with dry mucosa and patient is edentulous. Bitemporal wasting Neck: Supple without JVD. Back: Kyphotic without CVA tenderness. Lungs: Patient has poor inspiratory effort and no focalizing rales or rhonchi but not taking deep breath. No expiratory wheeze and no increased expiratory phase. Heart: Regular rate and rhythm with no murmurs gallops appreciated. Abdomen: Scaphoid without focalizing tenderness or rebound. Bowel sounds are hypoactive in all quadrants. No palpable hepatosplenomegaly and no Wooten sign. Genitalia/rectal: Exam deferred. Patient does have Lowe catheter in place. Extremities: Without clubbing, cyanosis or grossly pitting edema. Fair capillary refill. Extremities are contracted as stated. Diffuse muscle wasting. Neuro: Cranial nerves II through XII grossly intact, no focal motor deficits but the patient does have increased tone with contractures which appear to be voluntary. No tremor. Psych: Slightly anxious when stimulated, dysarthric speech with mood labile. He appears delirious. No abnormal thought processes manifested. Remote and recent memory not testable. Objective Last Vital Signs Temp 36.7 C 10/30/24 22:47 Pulse 68 10/31/24 10:01 Resp 13 10/31/24 09:02 BP 80/37 L 10/31/24 10:01 Pulse Ox 95 10/31/24 10:01 Laboratory Results - last 24 hr 10/30/24 10/30/24 10/30/24 16:20 19:42 19:50 WBC 10.47 RBC 4.04 L Hgb 11.3 L Hct 35.4 L MCV 88 MCH 28.0 MCHC 31.9 L RDW 15.1 H Plt Count 170 MPV 10.6 Immature Gran % 0.0 Neutrophils % 77.0 Band Neutrophils % 2 Lymphocytes % 6.0 Atypical Lymphs % 2 Monocytes % 13.0 Eosinophils % 0.0 Basophils % 0.0 Nucleated RBC % 0.0 Absolute Neutrophils 8.27 H Absolute Lymphocytes 0.84 L Absolute Monocytes 1.36 H Absolute Eosinophils 0.00 Absolute Basophils 0.00 RBC Morphology Normal PT INR VBG Lactate 1.9 H Sodium 142 Potassium 4.4 Chloride 106 Carbon Dioxide 26.7 Anion Gap 9.3 BUN 47 H Creatinine 1.7 H Est GFR (CKD-EPI 2020) 42.30 Glucose 168 H Calcium 8.0 L Total Bilirubin 0.33 AST 33 ALT 34 Alkaline Phosphatase 118 H Total Protein 6.1 L Albumin 2.6 L Lipase 127 H Procalcitonin 0.98 TSH 1.54 Urine Color Yellow Urine Clarity Clear Urine pH 5.0 Ur Specific [place] 1.015 Urine Protein 30 H Urine Ketones Negative Urine Blood Moderate H Urine Nitrite Positive H Urine Bilirubin Negative Urine Urobilinogen 0.2 Ur Leukocyte Esterase Small H Urine RBC 10-20 H Urine WBC 10-20 H Ur Epithelial Cells Few Urine Crystals Negative Urine Bacteria Moderate Urine Casts 0-2 Hyaline Urine Mucus Negative Urine Other Rare Transitional Ur Culture Indicated? Yes Urine Glucose Negative Random Vancomycin COVID-19 Source NASOPHARYNX SARS-CoV-2 (PCR) Negative Influenza Type A (PCR) Negative Influenza Type B (PCR) Negative RSV (PCR) Negative 10/31/24 05:55 WBC 6.08 RBC 4.01 L Hgb 11.3 L Hct 35.5 L MCV 89 MCH 28.2 MCHC 31.8 L RDW 15.2 H Plt Count 172 MPV 10.5 Immature Gran % Neutrophils % Band Neutrophils % Lymphocytes % Atypical Lymphs % Monocytes % Eosinophils % Basophils % Nucleated RBC % Absolute Neutrophils Absolute Lymphocytes Absolute Monocytes Absolute Eosinophils Absolute Basophils RBC Morphology PT 11.3 H INR 1.1 VBG Lactate Sodium 142 Potassium 4.0 Chloride 109 H Carbon Dioxide 27.4 Anion Gap 5.6 BUN 42 H Creatinine 1.3 Est GFR (CKD-EPI 2020) 58.37 Glucose 88 Calcium 8.1 L Total Bilirubin 0.40 AST 53 H ALT 45 Alkaline Phosphatase 120 H Total Protein 5.5 L Albumin 2.5 L Lipase Procalcitonin TSH Urine Color Urine Clarity Urine pH Ur Specific [place] Urine Protein Urine Ketones Urine Blood Urine Nitrite Urine Bilirubin Urine Urobilinogen Ur Leukocyte Esterase Urine RBC Urine WBC Ur Epithelial Cells Urine Crystals Urine Bacteria Urine Casts Urine Mucus Urine Other Ur Culture Indicated? Urine Glucose Random Vancomycin 16.3 COVID-19 Source SARS-CoV-2 (PCR) Influenza Type A (PCR) Influenza Type B (PCR) RSV (PCR) Time Spent with Patient Time Spent with Patient: 35-49 minutes Time was spent: preparing to see the patient(eg.review tests), obtaining and/or reviewing separately otained hiistory, ordering medications,tests, procedures, referring, communicating with other health health care legal assistant, indepentently interpreting results, counseling the patient and care coordination
--- NOTE | 2024-10-31 14:35 | CHAPLAIN ---
Gera is non verbal and lives with caregivers. I introduced myself and gave him a prayer shawl. I will continue to visit.
[2024-10-31 16:18] LABS: MRSA PCR Negative (Negative)
--- NOTE | 2024-10-31 18:04 | W.PC.ACHO ---
Registration Status: Primary Language: Preferred Language: ED Information & Data Chief Complaint GenMedical 10/30/24 16:09 Triage Note Pt arrives to ED via EMS for 10/30/24 15:03 respiratory distress. 95% on RA upon arrival. Caregiver reports a worsening cough. 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 Sessile colonic polyp Partial blindness Family hx of colon cancer (Last Reviewed 10/31/24 @ 07:00 by Dat Martel) History of colonoscopy with polypectomy (~08/11/22) History of colonoscopy (~09/2023) Most Recent Vital Signs Temperature 37 C 10/31/24 16:20 Temperature Source Temporal Artery Scan 10/31/24 16:20 Pulse 64 10/31/24 16:20 Pulse 66 10/31/24 15:30 Respiratory Rate 16 10/31/24 16:20 Respiratory Effort Non-Labored 10/30/24 22:47 Respiratory Depth Shallow 10/30/24 22:47 Respiratory Pattern Normal 10/30/24 22:47 Blood Pressure 102/56 L 10/31/24 16:20 Blood Pressure Mean 70 10/31/24 15:30 Blood Pressure Position Left Lateral 10/30/24 22:47 Pulse Oximetry 98 10/31/24 16:20 Oxygen Delivery Method Room Air 10/31/24 16:20 Oxygen Flow Rate 0 10/31/24 16:20 Pain Level 5 10/30/24 15:21 Comment VS taken by RN upon arrival from ICU 10/31/24 16:20 Comment [email or web address]/31/24 01:30 Allergies No Known Allergies Allergy (Verified 10/30/24 15:12) Precautions Isolation Droplet precaution 10/30/24 15:20 Active Medications Generic Name Dose Route Start Last Admin Trade Name Freq PRN Reason Stop Dose Admin Heparin Sodium (Porcine) 5,000 units 10/30/24 23:00 10/31/24 14:31 Heparin 5,000 Units/Ml Vial SC 5,000 units 0600,1400,2200 TOM Administration Norepinephrine Bitartrate 8 mg in 250 mls @ 9.375 mls/hr 10/30/24 16:00 10/31/24 05:00 IV 0 mcg/min INFUSION TOM 0 mls/hr Titration Protocol 5 MCG/MIN Vancomycin/PEG/NADA/Lysine/Water 1 gm in 200 mls @ 200 mls/hr 10/31/24 10:00 10/31/24 11:24 Vancocin Injection IVPB 200 mls/hr Q24H TOM Administration Sodium Chloride 1,000 mls @ 150 mls/hr 10/30/24 22:28 10/31/24 11:59 Saline 1000ml Bag IV 150 mls/hr INFUSION TOM Administration Cefepime HCl 2 gm/ Sodium 100 mls @ 200 mls/hr 10/31/24 08:00 10/31/24 10:11 Chloride IVPB Infused Q12H TOM Infusion Insulin Aspart 0 units 10/30/24 22:00 10/31/24 16:59 Insulin Aspart 300 Units/3 Ml Pen SC Not Given 0800,1200,1700,2200 TMO Protocol Ketoconazole 0 gm 10/31/24 08:30 10/31/24 09:29 Ketoconazole 2% Cream 15 Gm Tube TP 1 applic DAILY TOM Administration Mirtazapine 7.5 mg 10/30/24 23:00 10/30/24 23:20 Mirtazapine 15 Mg Tab PO 7.5 mg HS TOM Administration Nystatin 0 gm 10/30/24 23:00 10/31/24 09:29 Nystatin Powder 15 Gm Jar TP 1 applic BID TOM Administration Sodium Chloride 0 ml 10/30/24 20:00 10/31/24 09:29 Normal Saline Flush 10 Ml Syr IVP 10 ml BID TOM Administration IV IV Catheter Type [Right Saline Lock Forearm] IV Catheter Type [Left Wrist] Peripheral IV IV Catheter Gauge [Right 20 Forearm] IV Catheter Gauge [Left Wrist] 20 Diagnostics 10/31/24 10/31/24 10/30/24 Range/Units 14:40 05:55 19:50 WBC 6.08 (4.4-10.8) 10^3/uL RBC 4.01 L (4.36-5.78) 10^6/uL Hgb 11.3 L (13.5-17.5) g/dL Hct 35.5 L (40.0-50.0) % MCV 89 (80-95) fL MCH 28.2 (27.0-33.0) pg MCHC 31.8 L (32.0-36.0) % RDW 15.2 H (11.8-14.1) % Plt Count 172 (130-400) 10^3/uL MPV 10.5 (8.0-11.0) fL PT 11.3 H (9.1-11.1) sec INR 1.1 (0.9-1.1) Sodium 142 (136-145) mmol/L Potassium 4.0 (3.5-5.1) mmol/L Chloride 109 H (98-107) mmol/L Carbon Dioxide 27.4 (21.0-32.0) mmol/L Anion Gap 5.6 (3-11) mmol/L BUN 42 H (7-18) mg/dL Creatinine 1.3 (0.70-1.30) mg/dL Est GFR (CKD-EPI 2020) 58.37 (mL/min/1.73m2) Glucose 88 (74-106) mg/dL Calcium 8.1 L (8.5-10.1) mg/dL Total Bilirubin 0.40 (0.2-1.0) mg/dL AST 53 H (15-37) U/L ALT 45 (16-63) U/L Alkaline Phosphatase 120 H (46-116) U/L Total Protein 5.5 L (6.4-8.2) g/dL Albumin 2.5 L (3.4-5.0) g/dL TSH (0.36-3.74) uIU/mL Urine Color (Yellow) Urine Clarity (Clear) Urine pH (5-8) Ur Specific [place] (1.005-1.025) Urine Protein (Neg-Trace) mg/dL Urine Ketones (Negative) mg/dL Urine Blood (Negative) Urine Nitrite (Negative) Urine Bilirubin (Negative) Urine Urobilinogen (Up to 0.2) mg/dL Ur Leukocyte Esterase (Negative) Urine RBC (0-2) HPF Urine WBC (0-5) HPF Ur Epithelial Cells (Negative) HPF Urine Crystals (Negative) HPF Urine Bacteria (Negative) HPF Urine Casts (Negative) LPF Urine Mucus (Negative) Urine Other (Negative) Ur Culture Indicated? Urine Glucose (Negative) mg/dL Random Vancomycin 16.3 ug/mL COVID-19 Source NASOPHARYNX SARS-CoV-2 (PCR) Negative (Negative) Influenza Type A (PCR) Negative (Negative) Influenza Type B (PCR) Negative (Negative) RSV (PCR) Negative (Negative) MRSA (TEM-PCR) Negative (Negative) 10/30/24 10/30/24 Range/Units 19:42 16:20 WBC (4.4-10.8) 10^3/uL RBC (4.36-5.78) 10^6/uL Hgb (13.5-17.5) g/dL Hct (40.0-50.0) % MCV (80-95) fL MCH (27.0-33.0) pg MCHC (32.0-36.0) % RDW (11.8-14.1) % Plt Count (130-400) 10^3/uL MPV (8.0-11.0) fL PT (9.1-11.1) sec INR (0.9-1.1) Sodium (136-145) mmol/L Potassium (3.5-5.1) mmol/L Chloride (98-107) mmol/L Carbon Dioxide (21.0-32.0) mmol/L Anion Gap (3-11) mmol/L BUN (7-18) mg/dL Creatinine (0.70-1.30) mg/dL Est GFR (CKD-EPI 2020) (mL/min/1.73m2) Glucose (74-106) mg/dL Calcium (8.5-10.1) mg/dL Total Bilirubin (0.2-1.0) mg/dL AST (15-37) U/L ALT (16-63) U/L Alkaline Phosphatase (46-116) U/L Total Protein (6.4-8.2) g/dL Albumin (3.4-5.0) g/dL TSH 1.54 (0.36-3.74) uIU/mL Urine Color Yellow (Yellow) Urine Clarity Clear (Clear) Urine pH 5.0 (5-8) Ur Specific [place] 1.015 (1.005-1.025) Urine Protein 30 H (Neg-Trace) mg/dL Urine Ketones Negative (Negative) mg/dL Urine Blood Moderate H (Negative) Urine Nitrite Positive H (Negative) Urine Bilirubin Negative (Negative) Urine Urobilinogen 0.2 (Up to 0.2) mg/dL Ur Leukocyte Esterase Small H (Negative) Urine RBC 10-20 H (0-2) HPF Urine WBC 10-20 H (0-5) HPF Ur Epithelial Cells Few (Negative) HPF Urine Crystals Negative (Negative) HPF Urine Bacteria Moderate (Negative) HPF Urine Casts 0-2 Hyaline (Negative) LPF Urine Mucus Negative (Negative) Urine Other Rare Transitional (Negative) Ur Culture Indicated? Yes Urine Glucose Negative (Negative) mg/dL Random Vancomycin ug/mL COVID-19 Source SARS-CoV-2 (PCR) (Negative) Influenza Type A (PCR) (Negative) Influenza Type B (PCR) (Negative) RSV (PCR) (Negative) MRSA (TEM-PCR) (Negative) 10/30/24 19:42 Urine Culture - Preliminary Urine - Reflex from Ua Gram Negative Pascual 10/30/24 18:40 Blood Culture - Pending Blood 10/30/24 16:20 Blood Culture - Pending Blood Trivm-rb-Efea Documentation Fingerstick Glucose Start: 10/30/24 19:44 Freq: AC & HS Status: Active Protocol: Activity Type Activity Date Activity User E-sign Co-sign Detail Recorded Client Recorded Date Recorded By Document 10/31/24 16:32 BKG DAEMON [id number] 10/31/24 16:32 BKG DAEMON(2) Intake and Output - 24 Hour Total 10/30/24 14:46 thru 10/31/24 16:20 Intake Total 4153.590 Output Total 1400 Balance 2753.590 Weight 54.4 kg Intake: IV 3203.590 Oral 950 Output: Urine 1400 Other: Urine Color Yellow Urine Appearance Clear Comment daniel is patent Stool Size Moderate Stool Characteristics Brown Urinary Catheter Urinary Catheter Date of 10/30/24 Insertion [2-way Urethral] Time of insertion [2-way 19:48 Urethral] Falls Risk Assessment History of Falls Previous History 10/30/24 22:47 Contributing Factors Unstable 10/30/24 15:21 Ambulatory Aids Independent 10/30/24 15:21 Tubes/Lines With any additional score 10/30/24 15:21 Gait Evaluation No gait disturbance 10/30/24 15:21 Cognition Cognitive impairment 12/16/24 15:21 Fall Total Score 15 10/30/24 22:47 Level of Risk Standard/Low Risk 10/30/24 22:47 Problems (Last Reviewed 10/31/24 @ 07:00 by Dat Martel) Unintended weight loss (Acute) Developmental disability (Acute) Nonverbal (Acute) Advanced care planning/counseling discussion (Acute) Palliative care patient (Acute) Abnormal weight loss (Acute) Acute hypotension (Acute) Pneumonia (Acute) UTI (urinary tract infection) (Acute) Hyperglycemia without ketosis (Acute) Pancreatitis, acute (Acute) Cholelithiasis (Chronic) Shock due to systemic infection (Acute) Acute dehydration (Acute) Aspiration into airway (Acute) Pneumonia (Acute) Severe sepsis (Acute) Cognitive changes (Acute) Intellectual disability (Acute) Notes 10/30/24 17:27 Nursing Notes by Miranda Monzon Nursing Note: Pt not given 50mg/1ml dose of ketamine for imaging. 1ml dose wasted with Gaye Thayer, Unable to confirm waste in Pyxis. Initialized on 10/30/24 17:27 - END OF NOTE v v v v v v v v v Sending and/or Receiving Nurses: Please use comment section below to note any information pertinent to the patient hand-off not included above. Information / Comments:Patient is developmentally delayed at baseline. Significant cognitive impairment. Lungs are diminished with rattles on the right side, with imaging showing right sided infiltrates. Soft pressures noted w/ NSR. GI: Incontinent last BM 10/31/24. : Folry in place. Skin: Multiple pressure points with mepilexes in place. Patient on contact precautions r/t MRSA rule out. IV access right fore arm and LAC. Patient requires a gentle approach to mitigate being stressed. Stuffed kenny cat is his comfort object. Total feed. Report received from: Shavonne, JAVASCRIPT ENGINEER @ 15:30
[2024-10-31] MEDS: Mirtazapine 15 MG TAB 7.5 MG PO (20:12)
[2024-10-31] MEDS: Rosuvastatin 10 MG TAB PO (20:13)
[2024-11-01] MEDS: Normal Saline 1,000 ML 150 ML IV ×3 (03:10→18:52)
[2024-11-01 03:25] VITALS: BP 108/52; PULSE 66; RESP 16; TEMP 37.6; O2SAT 95
[2024-11-01] MEDS: Heparin 5,000 UNITS/ML VIAL 5000 UNITS SC ×3 (06:15→22:56)
[2024-11-01 07:23] LABS: Abs Immature Grans 0.01 10^3/uL (0.0-0.06); Absolute Basophil Count 0.06 10^3/uL (0.0-0.2); Absolute Eosinophil Count 0.09 10^3/uL (0.0-0.7); Absolute Lymphocyte Count 1.01 10^3/uL (1.2-3.4); Absolute Monocyte Count 0.56 10^3/uL (0.1-0.8); Absolute Neutrophil Count 2.33 10^3/uL (1.2-6.7); Basophils % 1.5 %; Eosinophils % 2.2 %; HGB 9.8 g/dL (13.5-17.5); Immature Grans % 0.2 %; Lymphocytes % 24.9 %; MCH 28.1 pg (27.0-33.0); MCHC 31.6 % (32.0-36.0); MCV 89 fL (80-95); MPV 10.4 fL (8.0-11.0); Monocytes % 13.8 %; Neutrophils % 57.4 %; Platelet Count 157 10^3/uL (130-400); RBC 3.49 10^6/uL (4.36-5.78); RDW 15.4 % (11.8-14.1); RDW-SD 50.3 fL; WBC 4.06 10^3/uL (4.4-10.8)
[2024-11-01 07:25] LABS: ESR 17 mm/hr (0-20)
[2024-11-01 07:30] VITALS: BP 108/55; PULSE 66; RESP 16; TEMP 37.2; O2SAT 97
[2024-11-01 07:42] LABS: ALT 36 U/L (16-63); AST 43 U/L (15-37); Albumin 1.9 g/dL (3.4-5.0); Alkaline Phosphatase 96 U/L (46-116); Anion Gap 9.3 mmol/L (3-11); BUN 22 mg/dL (7-18); Bilirubin, Total 0.37 mg/dL (0.2-1.0); CO2 22.7 mmol/L (21.0-32.0); CREATININE 0.9 mg/dL (0.70-1.30); Calcium 7.4 mg/dL (8.5-10.1); Chloride 110 mmol/L (98-107); Estimated GFR 90.74 (mL/min/1.73m2); Glucose 68 mg/dL (74-106); Potassium 3.4 mmol/L (3.5-5.1); Sodium 142 mmol/L (136-145)
[2024-11-01 08:13] LABS: Procalcitonin 0.34 ng/mL
[2024-11-01] MEDS: CEFEPIME 2 GM in Normal Saline 100 ML IVPB ×2 (08:24→19:33)
[2024-11-01] MEDS: Nystatin POWDER 15 GM JAR TP ×2 (08:28→19:32)
[2024-11-01] MEDS: Ketoconazole 2% CREAM 15 GM TUBE TP (08:28)
[2024-11-01] MEDS: Normal Saline Flush 10 ML SYR IVP ×2 (08:29→19:34)
[2024-11-01] MEDS: VANCOMYCIN/WATER (PEG) 1 GM/200 ML BAG IVPB (09:57)
[2024-11-01 11:40] VITALS: BP 100/60; PULSE 65; RESP 16; TEMP 37; O2SAT 94
--- NOTE | 2024-11-01 13:33 | PGE_ITS ---
Date of Service Date of service: 11/01/24 Time of Service: 13:33 Assessment and Plan Assessment and plan (1) Severe sepsis: Status: Acute Assessment and plan: will continue with broad spectrum abx and await culture results. Will do an MRSA swab as well. Recheck wbc and inflammatory markers in am 11/01/24 WBC is improved. Pt is currently on cefepime (2) Intellectual disability: Status: Acute Assessment and plan: POC d/w legal guardian. See subjective for details (3) Pneumonia: Status: Acute Assessment and plan: as above (4) Aspiration into airway: Status: Acute Assessment and plan: as above. Caregivers state the pt has had a swallowing study in the past. 06/18/24 Exam(s) RF MODIFIED SPEECH BA SWALLOW TECHNIQUE: Modified barium swallow was performed in conjunction with speech pathology. Radiologist was present in the fluoroscopy suite for the entire duration of the study. CONTRAST MATERIAL: Oral barium Oral water soluble contrast was administered. COMPARISON: No exams were available for comparison FINDINGS: Fluoroscopy was provided during swallowing mechanism study performed by the speech therapist. See that separate report for details. There is no obvious aspiration evident on this study IMPRESSION: No evidence of aspiration See separate speech therapist report RECOMMENDATIONS: Diet Texture Recommendation:? IDDSI LEVEL SOLIDS 5-Minced & Moist Solids LIQUIDS 0-Thin Liquids (5) Advanced care planning/counseling discussion: Status: Acute Assessment and plan: pt is on heparin for dvtp (6) Unintended weight loss: Status: Acute Assessment and plan: Notes reviewed from Palliative care states that the pt has lost over 30kilos over the last year. I did d/w the legal guardian that this is concerning for an occult malignancy. CT scan of chest/abd/pelvis did not show any clear masses. Will consider appetitite stimulants as well as an endoscopy. Pt is unable to give history but I do wonder about PUD. Will order a h. pylori in the interim 11/01/24 Discussed with legal guardian who did want to pursue EGD. Will get input from in regards to feasability Subjective Subjective Interval history since last seen: Pt seen and examined in his room this am. I have discussed the case with the outpatient CM, his attendant, and his legal guardian Alberta MeloTodd Santi. I have also been in communication with Dr Ngo () in regards to possible EGD. PT does not to appear to be in pain at this time Exam Narrative Exam Narrative: General: appears older than his stated age, but no distress HEENT: Normocephalic, course and facial features, eyes with pupils equal and reactive to light symmetrically, extraocular movement intact and sclera anicteric. Oropharynx with dry mucosa and patient is edentulous. Bitemporal wasting Neck: Supple without JVD. Back: Kyphotic without CVA tenderness. Lungs: Patient has poor inspiratory effort and no focalizing rales or rhonchi but not taking deep breath. No expiratory wheeze and no increased expiratory phase. Heart: Regular rate and rhythm with no murmurs gallops appreciated. Abdomen: Scaphoid without focalizing tenderness or rebound. Bowel sounds are hypoactive in all quadrants. No palpable hepatosplenomegaly and no Wooten sign. Genitalia/rectal: Exam deferred. Patient does have Lowe catheter in place. Extremities: Without clubbing, cyanosis or grossly pitting edema. Fair capillary refill. Extremities are contracted as stated. Diffuse muscle wasting. Neuro: Cranial nerves II through XII grossly intact, no focal motor deficits but the patient does have increased tone with contractures which appear to be voluntary. No tremor. Psych: Slightly anxious when stimulated, dysarthric speech with mood labile. He appears delirious. No abnormal thought processes manifested. Remote and recent memory not testable. Objective Last Vital Signs Temp 37.0 C 11/01/24 11:40 Pulse 65 11/01/24 11:40 Resp 16 11/01/24 11:40 BP 100/60 11/01/24 11:40 Pulse Ox 94 11/01/24 11:40 Laboratory Results - last 24 hr 10/31/24 11/01/24 14:40 06:15 WBC 4.06 L RBC 3.49 L Hgb 9.8 L Hct 31.0 L MCV 89 MCH 28.1 MCHC 31.6 L RDW 15.4 H Plt Count 157 MPV 10.4 Immature Gran % 0.2 Neutrophils % 57.4 Lymphocytes % 24.9 Monocytes % 13.8 Eosinophils % 2.2 Basophils % 1.5 Nucleated RBC % 0.0 Absolute Neutrophils 2.33 Absolute Lymphocytes 1.01 L Absolute Monocytes 0.56 Absolute Eosinophils 0.09 Absolute Basophils 0.06 ESR 17 Sodium 142 Potassium 3.4 L Chloride 110 H Carbon Dioxide 22.7 Anion Gap 9.3 BUN 22 H Creatinine 0.9 Est GFR (CKD-EPI 2020) 90.74 Glucose 68 L Calcium 7.4 L Total Bilirubin 0.37 AST 43 H ALT 36 Alkaline Phosphatase 96 Total Protein 5.0 L Albumin 1.9 L Procalcitonin 0.34 MRSA (TEM-PCR) Negative Time Spent with Patient Time Spent with Patient: 25-34 minutes Time was spent: preparing to see the patient(eg.review tests), obtaining and/or reviewing separately otained hiistory, ordering medications,tests, procedures, referring, communicating with other health critical care specialist, indepentently interpreting results, counseling the patient and care coordination
[2024-11-01 15:39] VITALS: BP 119/68; PULSE 66; RESP 18; TEMP 36.8; O2SAT 97
--- NOTE | 2024-11-01 16:53 | PDOC.CMPRO ---
Date of service: 11/01/24 Time of Service: 16:53 Care Management Progress Note Progress Note Text Progress Note Text: Gera was sitting up in a chair when CM met with him. Initially he did not respond to conversation but later in the day he became more interactive. CM met with him and his guardian Alberta this afternoon to discuss his plan of care. Gera had not been eating much for a few days and has lost a plot of weight over the past year. The provider requested a surgical consult to evaluate the possible need for an EGD. Dr. Anaya explained the rationale and procedure to Alberta and she agreed to give consent if recommended. Clinically Gera appears to be improving. Alberta noted that his color is better and he is acting more like himself. Discharge Potential Discharge Needs: PCP F/U Appt Anticipated Barriers to Discharge: None Identified Patient/Family Education Needs: Review discharge instructions, discuss Ask Me Three Transportation: Private vehicle SDOH(Care Management) Screening Will the Patient Participate in the Screening?: Unable to obtain Health Related Social Needs Health related social needs details: Pt unable to verbalize needs
[2024-11-01] MEDS: Mirtazapine 15 MG TAB 7.5 MG PO (19:33)
[2024-11-01] MEDS: Rosuvastatin 10 MG TAB PO (19:33)
[2024-11-01 19:37] VITALS: BP 112/54; PULSE 69; RESP 16; TEMP 36.6; O2SAT 95
[2024-11-01 19:49] LABS: CEA 1.9 ng/mL (See Note)
[2024-11-01 20:15] LABS: AFP Tumor Marker <2.5 ng/mL (<8.1)
--- NOTE | 2024-11-01 22:28 | W.SURGCON ---
Date of service: 11/01/24 Time of Service: 22:28 Assessment and Plan Assessment and plan (1) Unintended weight loss: Status: Acute Assessment and plan: Based on the findings of his previous barium swallow, as well as Soo cognitive abilities, I suspect his malnutrition is really a function of inadequate swallow safety and efficiency. Although I am only meeting him for the first time, and obviously his relationship with his caregivers is probably much different, it is hard for me to imagine that they will is really able to meet his nutritional needs given the challenges associated with his care. We could certainly do an EGD for structural evaluation of the esophagus and stomach, and if it is a malignancy in that area that is driving his weight loss, I suspect it would be fairly easy to detect endoscopically. I would consider him to be fairly high risk for the procedure, however, given his aspiration pneumonia, and his overall frailty and malnutrition. I also want to be very respectful to ensure that I am honoring the wishes of Gera and his support team with regards to his overall care as it appears that some invasive procedures can be fairly stressful for him. If the risk and the invasiveness of the EGD remain a concern, then an esophagogram would be a reasonable test. It appears that the H. pylori was already ordered, so that test may be useful in terms of diagnostics. In the big picture of things, I am quite concerned about his malnutrition as a whole. His albumin level is extremely low, and he is clearly quite malnourished by way of physical exam. It may be reasonable to try some calorie counts while he is here in the hospital, but my hunch is he is probably going to have a very difficult time meeting his nutritional needs without supplemental enteral nutrition. Obviously, the conversation regarding durable feeding access by way of a nasogastric tube or gastrostomy tube might also be quite challenging as I would guess they conflict with details expectations regarding his care. I do think it would be useful to clarify that before making any other decisions. If it is the case that a Gera would desire gastrostomy tube for supplemental feeding, then I would suggest being prepared to place that tube at the time of EGD rather than put him through 2 separate procedures. In the meantime, if he is not meeting his nutritional needs, then I would strongly encouraged the insertion of a nasogastric tube for feeding since he appears so severely malnourished. History of Present Illness History of Present Illness Chief Complaint: Unexplained weight loss Narrative: Gera is 74 years old. He has an unnamed intellectual disability, and is dependent upon caregivers to assist with activities of daily living. Comes to the emergency department on October 30 with what sounds like a change in his mental status. Reports indicate that he really was not acting himself, and there were concerns regarding his pulse oximetry at home, as well as some concerning cough symptoms. EMS providers noted that he was hypotensive. He was brought to the emergency department, and resuscitated with crystalloid. He required initiation of vasoactive medications to drive his blood pressure up to a normal level. He had a white blood cell count around 10,000, and elevation of his serum creatinine that seem consistent with some dehydration or acute kidney injury. He underwent a CT scan of the chest abdomen and pelvis, which demonstrated bilateral pulmonary infiltrates. He was admitted to the hospital, started on broad-spectrum antibiotics, and vasoactive medications were weaned as blood pressure improved. In the course of the workup, was noted that he has had significant weight loss over the past year. I was asked to see him for consideration of EGD to see if that would shed any light on upper GI pathology that might account for the weight loss. Soo intellectual disability precludes him from sharing any review of systems, or any meaningful medical history at all. All the information I have so far is obtained from the chart. With regards to the pertinent medical history related to the unanticipated weight loss, Gera has undergone colonoscopy in the past. 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 The recommendation at that time was to follow-up with another colonoscopy in 3 years. It looks like he also has had a diagnosis of squamous cell carcinoma in situ from some skin lesions. It appears that he had difficulty with swallowing and dysphagia for about a year. He has been seen by the speech and swallow team, and has undergone a modified barium swallow that did demonstrate some evidence of aspiration. He was diagnosed with mild to moderate oropharyngeal dysphagia and recommendations were made for a diet with minced and moist solids, and some thin liquids. His cognitive ability precludes many of the other recommendations with regards to swallow efficiency and safety. Review of Systems Narrative: Gera's mental status precludes an adequate review of symptoms but those previously documented in the chart are reviewed PFSH All Active Problems Recurrent aspiration pneumonia (Acute) Unintended weight loss (Acute) Developmental disability (Acute) Nonverbal (Acute) Advanced care planning/counseling discussion (Acute) Palliative care patient (Acute) Abnormal weight loss (Acute) Acute hypotension (Acute) Pneumonia (Acute) UTI (urinary tract infection) (Acute) Hyperglycemia without ketosis (Acute) Pancreatitis, acute (Acute) Cholelithiasis (Chronic) Shock due to systemic infection (Acute) Acute dehydration (Acute) SILVANA (acute kidney injury) (Acute) Choking episode (Acute) Aspiration into airway (Acute) Rash (Acute) Pneumonia (Acute) Severe sepsis (Acute) Tubular adenoma of colon (Acute ~09/2023) Stasis dermatitis of 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 venous hypertension (Acute) Onychomycosis (Acute) Skin rash (Acute) Pain, foot (Acute) Nail dystrophy (Acute) Camptocormia (Acute) Cognitive changes (Acute) Excess ear wax (Acute ~08/11/22) Urinary incontinence (Acute) Squamous cell carcinoma (Acute) Myalgia (Acute) Tubulovillous adenoma (Acute) Colon polyps (Acute) adenomatous polyp 2022 repeat in 2025 Strain of right hip (Acute) Seborrheic keratoses (Acute) Impaired fasting glucose (Acute) Intellectual disability (Acute) PRINCE (dyspnea on exertion) (Acute) Medical History Failure to thrive in adult Pneumonia History of prediabetes Family history of malignant neoplasm of digestive organs Blindness/low vision History of colon polyps Dyspnea History of squamous cell carcinoma Hyperlipidemia Not for resuscitation Anxiety 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 Per caregiver has extreme fear of doctors and medical providers. Proivder states to keep things as low samano as possible and not high energy. Exam Const General: comfortable Nutritional Appearance: cachectic and malnourished Orientation: awake Limitations: altered mental status Neck Neck: normal visual inspection and no lymphadenopathy GI Inspection: non-distended Palpation: soft, no guarding and nontender Results Last Vital Signs Temp 97.8 F 11/01/24 19:37 Pulse 69 11/01/24 19:37 Resp 16 11/01/24 19:37 BP 112/54 L 11/01/24 19:37 Pulse Ox 95 11/01/24 19:37 Labs 11/01/24 06:15 11/01/24 06:15 Labs: Laboratory Results - last 24 hr 11/01/24 06:15 WBC 4.06 L RBC 3.49 L Hgb 9.8 L Hct 31.0 L MCV 89 MCH 28.1 MCHC 31.6 L RDW 15.4 H Plt Count 157 MPV 10.4 Immature Gran % 0.2 Neutrophils % 57.4 Lymphocytes % 24.9 Monocytes % 13.8 Eosinophils % 2.2 Basophils % 1.5 Nucleated RBC % 0.0 Absolute Neutrophils 2.33 Absolute Lymphocytes 1.01 L Absolute Monocytes 0.56 Absolute Eosinophils 0.09 Absolute Basophils 0.06 ESR 17 Sodium 142 Potassium 3.4 L Chloride 110 H Carbon Dioxide 22.7 Anion Gap 9.3 BUN 22 H Creatinine 0.9 Est GFR (CKD-EPI 2020) 90.74 Glucose 68 L Calcium 7.4 L Total Bilirubin 0.37 AST 43 H ALT 36 Alkaline Phosphatase 96 Total Protein 5.0 L Albumin 1.9 L Procalcitonin 0.34
[2024-11-01 23:26] VITALS: BP 112/65; PULSE 68; RESP 16; TEMP 37.5; O2SAT 97
[2024-11-02] VITALS (8 sets, daily range): BP systolic 96–137; BP diastolic 52–89; PULSE 64–78; RESP 16–18; TEMP 36.6–37.4; O2SAT 95–99
[2024-11-02] MEDS: Heparin 5,000 UNITS/ML VIAL 5000 UNITS SC ×3 (06:27→21:46)
[2024-11-02] MEDS: CEFEPIME 2 GM in Normal Saline 100 ML IVPB ×2 (08:00→22:45)
[2024-11-02] MEDS: Normal Saline Flush 10 ML SYR IVP ×3 (08:03→21:34)
[2024-11-02] MEDS: Ketoconazole 2% CREAM 15 GM TUBE TP (08:08)
[2024-11-02] MEDS: Nystatin POWDER 15 GM JAR TP (08:08)
--- NOTE | 2024-11-02 09:33 | PDOC.CMPRO ---
Date of service: 11/02/24 Time of Service: 09:34 Care Management Progress Note Progress Note Text Progress Note Text: Gera was sitting up in a chair visiting with his mgiycj-[id number] Ramila. He seemed to be interacting well with her and was in good spirits. Gera has visual challenges and does not have his glasses with him. Ramila reported that his caregiver Marjorie will bring them in later. Gera has had a surgical consult and may have an EGD but no final decision has been made. The provider did increase his diet to regular today and Gera ate 2 ice cream cups in addition to his clear liquid lunch. CM updated Alberta on the plan. Discharge Potential Discharge Needs: PCP F/U Appt Anticipated Barriers to Discharge: Medical Status Patient/Family Education Needs: Review discharge instructions, discuss Ask Me Three Transportation: Private vehicle Plan: Gera's discharge plan is unclear at this time. He will be seen by surgery and may have an EGD for diagnostic purposes. Depending on the results, he may go home and be admitted to hospice. Gera will follow up with his community providers and plan of care and transport with his elementary special education teacher. CM will follow and continue to assess for discharge needs. SDOH(Care Management) Screening Will the Patient Participate in the Screening?: Unable to obtain Health Related Social Needs Health related social needs details: Pt unable to verbalize needs
--- NOTE | 2024-11-02 12:38 | PGE_ITS ---
Date of Service Date of service: 11/02/24 Time of Service: 12:38 Assessment and Plan Assessment and plan (1) Severe sepsis: Status: Acute Assessment and plan: will continue with broad spectrum abx and await culture results. Will do an MRSA swab as well. Recheck wbc and inflammatory markers in am 11/01/24 WBC is improved. Pt is currently on cefepime 11/02/24 c/w cefepime and review cultures if/when available (2) Intellectual disability: Status: Acute Assessment and plan: POC d/w legal guardian. See subjective for details (3) Pneumonia: Status: Acute Assessment and plan: as above (4) Aspiration into airway: Status: Acute Assessment and plan: as above. Caregivers state the pt has had a swallowing study in the past. 06/18/24 Exam(s) RF MODIFIED SPEECH BA SWALLOW TECHNIQUE: Modified barium swallow was performed in conjunction with speech pathology. Radiologist was present in the fluoroscopy suite for the entire duration of the study. CONTRAST MATERIAL: Oral barium Oral water soluble contrast was administered. COMPARISON: No exams were available for comparison FINDINGS: Fluoroscopy was provided during swallowing mechanism study performed by the speech therapist. See that separate report for details. There is no obvious aspiration evident on this study IMPRESSION: No evidence of aspiration See separate speech therapist report RECOMMENDATIONS: Diet Texture Recommendation:? IDDSI LEVEL SOLIDS 5-Minced & Moist Solids LIQUIDS 0-Thin Liquids (5) Advanced care planning/counseling discussion: Status: Acute Assessment and plan: pt is on heparin for dvtp (6) Unintended weight loss: Status: Acute Assessment and plan: Notes reviewed from Palliative care states that the pt has lost over 30kilos over the last year. I did d/w the legal guardian that this is concerning for an occult malignancy. CT scan of chest/abd/pelvis did not show any clear masses. Will consider appetitite stimulants as well as an endoscopy. Pt is unable to give history but I do wonder about PUD. Will order a h. pylori in the interim 11/01/24 Discussed with legal guardian who did want to pursue EGD. Will get input from in regards to feasability 11/12/24 Notes from [facility] reviewed. Will communicate with Dr Ngo for plan Subjective Subjective Interval history since last seen: Pt does appear to be more responsive but does not communicate with me verbally Exam Narrative Exam Narrative: General: appears older than his stated age, but no distress HEENT: Normocephalic, course and facial features, eyes with pupils equal and reactive to light symmetrically, extraocular movement intact and sclera anicteric. Oropharynx with dry mucosa and patient is edentulous. Bitemporal w asting Neck: Supple without JVD. Back: Kyphotic without CVA tenderness. Lungs: Patient has poor inspiratory effort and no focalizing rales or rhonchi but not taking deep breath. No expiratory wheeze and no increased expiratory phase. Heart: Regular rate and rhythm with no murmurs gallops appreciated. Abdomen: Scaphoid without focalizing tenderness or rebound. Bowel sounds are hypoactive in all quadrants. No palpable hepatosplenomegaly and no Wooten sign. Genitalia/rectal: Exam deferred. Patient does have Lowe catheter in place. Extremities: Without clubbing, cyanosis or grossly pitting edema. Fair capillary refill. Extremities are contracted as stated. Diffuse muscle wasting. Neuro: Cranial nerves II through XII grossly intact, no focal motor deficits but the patient does have increased tone with contractures which appear to be voluntary. No tremor. Psych: Slightly anxious when stimulated, dysarthric speech with mood labile. He appears delirious. No abnormal thought processes manifested. Remote and recent memory not testable. Objective Last Vital Signs Temp 37.1 C 11/02/24 11:11 Pulse 64 11/02/24 11:11 Resp 16 11/02/24 11:11 BP 102/58 L 11/02/24 11:11 Pulse Ox 99 11/02/24 11:11 Laboratory Results - last 24 hr 11/01/24 06:15 Tumor Marker AFP <2.5 Carcinoembryonic Ag 1.9 Time Spent with Patient Time Spent with Patient: 25-34 minutes Time was spent: preparing to see the patient(eg.review tests), obtaining and/or reviewing separately otained hiistory, ordering medications,tests, procedures, referring, communicating with other health out of school hours care worker, indepentently interpreting results, counseling the patient and care coordination
--- NOTE | 2024-11-02 13:47 | PHA.REVIEW2 ---
Pharmacy Admission Review Admission Clinical Review Admission Pharmacy Review: Unintended weight loss (Acute) Developmental disability (Acute) Nonverbal (Acute) Advanced care planning/counseling discussion (Acute) Palliative care patient (Acute) Abnormal weight loss (Acute) Acute hypotension (Acute) Pneumonia (Acute) UTI (urinary tract infection) (Acute) Hyperglycemia without ketosis (Acute) Pancreatitis, acute (Acute) Shock due to systemic infection (Acute) Acute dehydration (Acute) Aspiration into airway (Acute) Pneumonia (Acute) Severe sepsis (Acute) Cognitive changes (Acute) Intellectual disability (Acute) No Known Allergies Allergy (Verified 10/30/24 15:12) Resuscitation Status DNR/DNI Height 5 ft 10.87 in Weight 58.4 kg Pharmacy Admission Review Renal Dosing Renal Dosing: BUN 22 mg/dL (7-18) H 11/01/24 06:15 Creatinine 0.9 mg/dL (0.70-1.30) 11/01/24 06:15 Medications needing adjustments: Reviewed (crcl = 55, no adjustments needed ) Anticoagulation Anticoagulation: Hgb 9.8 g/dL (13.5-17.5) L 11/01/24 06:15 Hct 31.0 % (40.0-50.0) L 11/01/24 06:15 Plt Count 157 10^3/uL (130-400) 11/01/24 06:15 INR 1.1 (0.9-1.1) 10/31/24 05:55 Creatinine 0.9 mg/dL (0.70-1.30) 11/01/24 06:15 DVT Prophylaxis: Reviewed Medications: Heparin (5000 units subq q8h) Therapeutic Anticoagulation: N/A Opiate Usage Evaluate Pain Scale/Pains Meds: Reviewed (not on opiates) Relevant Labs Relevant Labs: ESR 17 mm/hr (0-20) 11/01/24 06:15 Sodium 142 mmol/L (136-145) 11/01/24 06:15 Potassium 3.4 mmol/L (3.5-5.1) L 11/01/24 06:15 Chloride 110 mmol/L (98-107) H 11/01/24 06:15 DM Control DM Control: Reviewed Insulin Dosing, Diabetic Medication: no history of diabetes and not on diabetic medication at home, currently has insulin aspart sliding scale w/meals + qhs ordered d/t initially elevated glucometer readings however none has been administered so far (BS below protocol). last a1c = 6.6% 09/2023 Cardiac Review BP, HR, EF%: Reviewed (hypotensive but not as low as on admission (last bp 102/58 11/02 @ 1111), did require norepinephrine drip 10/30 --> titrated down and dc'd early AM 10/31) QTc Review QTc: Not Reviewed (no EKG to review) IV to PO Switch IV Medications: Reviewed (continue IV abx for now, other meds are PO) Home Meds Home Med List reviewed: Reviewed Relevent Home Meds Not ordered & why?: all home meds ordered Current Meds Current Medication Order Review: Reviewed Pharmacy Antibiotic Review Pharmacy Antibiotic Activity: 48 hour review, Abx regimen adjustment, C/S review and Antibiotic de-escalation Comments: initially on vancomycin which was dc'd yesterday d/t negative MRSA swab. cefepime 2g q12h continues (indication: pneumonia). testing for h. pylori, pending
[2024-11-02 13:56] LABS: HCT 32.5 % (40.0-50.0); HGB 10.7 g/dL (13.5-17.5); MCH 28.3 pg (27.0-33.0); MCHC 32.9 % (32.0-36.0); MCV 86 fL (80-95); MPV 9.9 fL (8.0-11.0); Platelet Count 138 10^3/uL (130-400); RBC 3.78 10^6/uL (4.36-5.78); RDW 15.2 % (11.8-14.1); RDW-SD 47.3 fL; WBC 3.35 10^3/uL (4.4-10.8)
[2024-11-02 14:52] LABS: ALT 48 U/L (16-63); AST 61 U/L (15-37); Alkaline Phosphatase 113 U/L (46-116); Anion Gap 7.6 mmol/L (3-11); BUN 11 mg/dL (7-18); CO2 24.4 mmol/L (21.0-32.0); Calcium 7.4 mg/dL (8.5-10.1); Chloride 105 mmol/L (98-107); Estimated GFR 79.97 (mL/min/1.73m2); Glucose 158 mg/dL (74-106); Potassium 3.3 mmol/L (3.5-5.1); Sodium 137 mmol/L (136-145); Total Protein 5.3 g/dL (6.4-8.2)
--- NOTE | 2024-11-02 21:26 | W.PM.PROGNOT ---
Date of Service Date of service: 11/02/24 Time of Service: 21:26 Assessment and Plan Assessment and plan (1) Unintended weight loss: Status: Acute (2) Cholelithiasis: Status: Chronic Assessment and plan: Ultrasound did not show any signs of acute cholecystitis (3) Elevated lipase: Status: Acute Assessment and plan: CT does not show any signs of acute pancreatitis (4) Recurrent aspiration pneumonia: Status: Acute (5) Aspiration of food: Status: Acute Assessment and plan: Date of Service Date of service: 07/12/24 Time of Service: 15:01 Modified Barium Swallow Study Findings: Video fluoroscopic Swallowing Evaluation (VFSE) / Modified Barium Swallow Study (MBSS) Speech Language Pathology Report Patient referred for VFSE/MBSS from given increased choking/coughing. HPI & Patient report of function: Gera Hubbard is a 74 yo male with hx intellectual disability who was evaluated recently via clinical swallow evalation (non-instrumental) due to 30 lb weight loss and s/sx aspiration. Caregiver has been thickening liquids at home and feels this has helped somewhat. At that time PROFESSOR OF COMMUNICATION ARTS recommended to complete MBSS. Since that time, he was also admitted to [facility] 07/03/24 with pneumonia, suspected to be due to aspiration. Gera was initially brought to urgent care for a skin rash, with recommendation to present to ED due to findings of low BP and pna. At home he had been asymptomatic for pneumonia. See recent PROFESSOR OF COMMUNICATION ARTS notes for further detail. IMPRESSIONS: Swallow safety is impaired; swallow efficiency is impaired. Mild-moderate chronic oropharyngoesophageal dysphagia. Characterized by edentulousness with disorganized oral phase, delayed pharyngeal onset, reduced epiglottic inversion, and structural abnormalities (large ?osteophyte at level of UES), resulting in significant vallecular and pyriform residue for both liquids and solids, and complicated by suspected reduced sensorimotor awareness of residue. While hyo-laryngeal motility actually seems quite strong with good airway protection, the disorganized/impulsive oral phase in combination with pharyngeal residue did lead to 1x deep micro penetration of thin liquid residue on subsequent swallow. Safest swallow conditions would entail small, single bites & sips with additional saliva swallows to clear residue. Given patient may not be very receptive to instructions for extra swallows, slow pace, etc, and historically has not been tolerant of oral care in setting of intellectual disability, there may not be much opportunity for additional risk reduction at this time, especially given caregivers already serve primarily a minced/moist diet. Did recommend provale cup for pace control with liquids, caregiver was agreeable to purchase this. Patient appears to be at moderate risk for potential aspiration PNA and/or pulmonary compromise and moderate risk for malnutrition, moderate risk for dehydration. Diet modification is indicated; non-oral nutrition is not indicated. Swallow prognosis is guarded given: Positive prognostic factors: Family/caregiver support, Negative prognostic factors: Age, Cognitive status, Surgical/anatomical factors, Patient appears to be a poor candidate for behavioral swallow rehabilitation. Subjective Subjective Interval history since last seen: Patient is nonverbal and cannot give any information. Information is taken from nursing. None of his caregivers are currently present. Surgery was consulted regarding consideration of doing a EGD to aid further in patient's diagnosis. Patient was admitted with aspiration pneumonia. He was evaluated by speech. I do not think EGD is going to give any further information to his diagnosis And puts him at risk for further aspiration. There are no structural anatomic abnormalities causing his problem. His problem is due to weakness. Patient is unfortunately unable to participate in any rehab. We would have to do general anesthesia and there is a high risk for aspiration with extubation. Continue further recommendations per speech therapy. Exam Narrative Exam Narrative: L: cta b/l A;- soft and non tender R- R/R/R Objective Last Vital Signs Temp 36.6 C 11/02/24 19:45 Pulse 74 11/02/24 19:45 Resp 18 11/02/24 19:45 BP 118/61 11/02/24 19:45 Pulse Ox 95 11/02/24 19:45 Laboratory Results - last 24 hr 11/01/24 11/02/24 06:15 13:49 WBC 3.35 L RBC 3.78 L Hgb 10.7 L Hct 32.5 L MCV 86 MCH 28.3 MCHC 32.9 RDW 15.2 H Plt Count 138 MPV 9.9 Sodium 137 Potassium 3.3 L Chloride 105 Carbon Dioxide 24.4 Anion Gap 7.6 BUN 11 Creatinine 1.0 Est GFR (CKD-EPI 2020) 79.97 Glucose 158 H Calcium 7.4 L Total Bilirubin 0.40 AST 61 H ALT 48 Alkaline Phosphatase 113 Total Protein 5.3 L Albumin 2.0 L Tumor Marker AFP <2.5 Carcinoembryonic Ag 1.9 Time Spent with Patient Time Spent with Patient: <25 minutes Time was spent: preparing to see the patient(eg.review tests), obtaining and/or reviewing separately otained hiistory, ordering medications,tests, procedures, referring, communicating with other health managed care nurse, indepentently interpreting results, counseling the patient, care coordination and other
[2024-11-02] MEDS: Rosuvastatin 10 MG TAB PO (21:33)
[2024-11-02] MEDS: Potassium Chloride 20 MEQ TABCR PO (21:33)
[2024-11-02] MEDS: Mirtazapine 15 MG TAB 7.5 MG PO (21:33)
[2024-11-03 03:35] VITALS: BP 99/50; PULSE 74; RESP 18; TEMP 37.2; O2SAT 96
[2024-11-03] MEDS: Heparin 5,000 UNITS/ML VIAL 5000 UNITS SC ×3 (06:19→21:29)
[2024-11-03 07:52] VITALS: BP 101/52; PULSE 73; RESP 16; TEMP 37.6; O2SAT 94
[2024-11-03] MEDS: Potassium Chloride 20 MEQ TABCR PO ×2 (07:57→21:16)
[2024-11-03] MEDS: CEFEPIME 2 GM in Normal Saline 100 ML IVPB ×2 (07:57→21:18)
[2024-11-03] MEDS: Normal Saline Flush 10 ML SYR IVP ×2 (08:00→21:18)
[2024-11-03] MEDS: Nystatin POWDER 15 GM JAR TP ×2 (08:07→21:30)
[2024-11-03] MEDS: Ketoconazole 2% CREAM 15 GM TUBE TP (08:07)
[2024-11-03 08:08] LABS: ALT 42 U/L (16-63); AST 49 U/L (15-37); Albumin 1.9 g/dL (3.4-5.0); Alkaline Phosphatase 107 U/L (46-116); Bilirubin, Total 0.39 mg/dL (0.2-1.0)
[2024-11-03 08:45] LABS: Bilirubin, Direct 0.1 mg/dL (0.0-0.2); Lipase 31 U/L (<78)
--- NOTE | 2024-11-03 09:11 | CMPROGNOTE_ITS ---
Date of service: 11/03/24 Time of Service: 09:11 Care Management Progress Note Progress Note Text Progress Note Text: Gera was sitting up in a chair when CM met with him. He was able to answer a couple of simple questions but was not talkative. Gera's diet was changed to NPO today due to the possibility of him undergoing and EGD. It is still not entirely clear if he will have the procedure today or not. CM spoke to his guardian Alberta who has not been asked to give consent and it is now mid-afternoon. CM will follow. Discharge Potential Discharge Needs: PCP F/U Appt Anticipated Barriers to Discharge: None Identified Patient/Family Education Needs: Review discharge instructions, discuss Ask Me Three Transportation: Private vehicle Plan: Gera's discharge plan is unclear at this time. He will be seen by surgery and may have an EGD for diagnostic purposes. Depending on the results, he may go home and be admitted to hospice. Gera will follow up with his community providers and plan of care and transport with his soda dry house operator. CM will follow and continue to assess for discharge needs. SDOH(Care Management) Screening Will the Patient Participate in the Screening?: Unable to obtain Health Related Social Needs Health related social needs details: Pt unable to verbalize needs
[2024-11-03 11:55] VITALS: BP 113/64; PULSE 68; RESP 18; TEMP 37.6; O2SAT 97
[2024-11-03 12:32] LABS: Beta-HCG, Quant, Tumor Marker <0.6 IU/L (<1.4)
[2024-11-03 13:10] LABS: Helicobacter pylori Ag, Feces Positive (Negative)
--- NOTE | 2024-11-03 13:44 | PGE_ITS ---
Date of Service Date of service: 11/03/24 Time of Service: 13:44 Subjective Subjective Interval history since last seen: Pt seen and examined in his room. POC discussed at MDR with bedside nurse Exam Narrative Exam Narrative: HEENT: Normocephalic atraumatic mucous membranes moist bitemporal wasting Neck: No lymphadenopathy no JVD no thyroid megaly Cardiovascular: Regular rate rhythm no murmur rubs or gallops Lungs: Bilateral wheeze but no accessory muscle use Abdomen: Scaphoid abdomen Extremities: No cyanosis clubbing or edema decreased muscle mass Psych: Patient is essentially nonverbal Objective Last Vital Signs Temp 37.6 C H 11/03/24 11:55 Pulse 68 11/03/24 11:55 Resp 18 11/03/24 11:55 BP 113/64 11/03/24 11:55 Pulse Ox 97 11/03/24 11:55 Laboratory Results - last 24 hr 11/01/24 11/01/24 11/02/24 06:15 10:30 13:49 WBC 3.35 L RBC 3.78 L Hgb 10.7 L Hct 32.5 L MCV 86 MCH 28.3 MCHC 32.9 RDW 15.2 H Plt Count 138 MPV 9.9 Sodium 137 Potassium 3.3 L Chloride 105 Carbon Dioxide 24.4 Anion Gap 7.6 BUN 11 Creatinine 1.0 Est GFR (CKD-EPI 2020) 79.97 Glucose 158 H Calcium 7.4 L Total Bilirubin 0.40 Conjugated Bilirubin AST 61 H ALT 48 Alkaline Phosphatase 113 Total Protein 5.3 L Albumin 2.0 L Lipase Beta HCG, Quant <0.6 Stool H. pylori Ag Positive A 11/03/24 06:30 WBC RBC Hgb Hct MCV MCH MCHC RDW Plt Count MPV Sodium Potassium Chloride Carbon Dioxide Anion Gap BUN Creatinine Est GFR (CKD-EPI 2020) Glucose Calcium Total Bilirubin 0.39 Conjugated Bilirubin 0.1 AST 49 H ALT 42 Alkaline Phosphatase 107 Total Protein 5.0 L Albumin 1.9 L Lipase 31 Beta HCG, Quant Stool H. pylori Ag Time Spent with Patient Time Spent with Patient: 25-34 minutes Time was spent: preparing to see the patient(eg.review tests), obtaining and/or reviewing separately otained hiistory, ordering medications,tests, procedures, referring, communicating with other health field care coordinator, indepentently interpreting results, counseling the patient and care coordination
--- NOTE | 2024-11-03 15:12 | W.PM.PROGNOT ---
Date of Service Date of service: 11/03/24 Time of Service: 15:12 Assessment and Plan Assessment and plan (1) Stasis dermatitis of 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 venous hypertension: Status: Acute (2) Impaired fasting glucose: Status: Acute (3) Abnormal weight loss: Status: Acute (4) Cholelithiasis: Status: Chronic (5) Intellectual disability: Status: Acute (6) Cognitive changes: Status: Acute (7) Developmental disability: Status: Acute (8) Pneumonia: Status: Acute (9) Aspiration into airway: Status: Acute (10) Partial blindness: (11) Anxiety: (12) Hyperlipidemia: (13) Aspiration of food: Status: Acute Assessment and plan: Results of swallow eval from speech reviewed. Patient is actively aspirating. Doing an EGD is not going to give us any more information. There is no signs of any ulceration or malignancy on his barium swallow. Unfortunately I think he has become very weak for what from what ever process, and is declining. He is not safe for anesthesia at this time, and would have a high risk of further aspiration with anesthesia that could to severe aspiration pneumonia and . At this point I feel palliative care/hospice is his best option. I do not feel surgery has anything further to offer him I did discuss this with Dr. Anaya. Subjective Subjective Interval history since last seen: Patient cannot give any history due to intellectual disabilities and nonverbal status. His caregivers are not with him currently Objective Last Vital Signs Temp 37.6 C H 11/03/24 11:55 Pulse 68 11/03/24 11:55 Resp 18 11/03/24 11:55 BP 113/64 11/03/24 11:55 Pulse Ox 97 11/03/24 11:55 Laboratory Results - last 24 hr 11/01/24 11/01/24 11/03/24 06:15 10:30 06:30 Total Bilirubin 0.39 Conjugated Bilirubin 0.1 AST 49 H ALT 42 Alkaline Phosphatase 107 Total Protein 5.0 L Albumin 1.9 L Lipase 31 Beta HCG, Quant <0.6 Stool H. pylori Ag Positive A Time Spent with Patient Time Spent with Patient: <25 minutes Time was spent: preparing to see the patient(eg.review tests), obtaining and/or reviewing separately otained hiistory, ordering medications,tests, procedures, referring, communicating with other health animal care service worker, indepentently interpreting results, counseling the patient, care coordination and other
[2024-11-03 15:19] VITALS: BP 105/51; PULSE 64; RESP 18; TEMP 37.1; O2SAT 99
--- NOTE | 2024-11-03 17:42 | W.PM.PROGNOT ---
Date of Service Date of service: 11/03/24 Time of Service: 17:42 Assessment and Plan Assessment and plan (1) Severe sepsis: Status: Acute Assessment and plan: will continue with broad spectrum abx and await culture results. Will do an MRSA swab as well. Recheck wbc and inflammatory markers in am 11/01/24 WBC is improved. Pt is currently on cefepime 11/02/24 c/w cefepime and review cultures if/when available 11/03/24 WBC improved cw current abx (2) Intellectual disability: Status: Acute Assessment and plan: POC d/w legal guardian. See subjective for details (3) Pneumonia: Status: Acute Assessment and plan: as above (4) Aspiration into airway: Status: Acute Assessment and plan: as above. Caregivers state the pt has had a swallowing study in the past. 06/18/24 Exam(s) RF MODIFIED SPEECH BA SWALLOW TECHNIQUE: Modified barium swallow was performed in conjunction with speech pathology. Radiologist was present in the fluoroscopy suite for the entire duration of the study. CONTRAST MATERIAL: Oral barium Oral water soluble contrast was administered. COMPARISON: No exams were available for comparison FINDINGS: Fluoroscopy was provided during swallowing mechanism study performed by the speech therapist. See that separate report for details. There is no obvious aspiration evident on this study IMPRESSION: No evidence of aspiration See separate speech therapist report RECOMMENDATIONS: Diet Texture Recommendation:? IDDSI LEVEL SOLIDS 5-Minced & Moist Solids LIQUIDS 0-Thin Liquids PER GS Assessment and plan: Results of swallow eval from speech reviewed. Patient is actively aspirating. Doing an EGD is not going to give us any more information. There is no signs of any ulceration or malignancy on his barium swallow. Unfortunately I think he has become very weak for what from what ever process, and is declining. He is not safe for anesthesia at this time, and would have a high risk of further aspiration with anesthesia that could to severe aspiration pneumonia and . At this point I feel palliative care/hospice is his best option. I do not feel surgery has anything further to offer him I did discuss this with Dr. Anaya. (5) Advanced care planning/counseling discussion: Status: Acute Assessment and plan: pt is on heparin for dvtp (6) Unintended weight loss: Status: Acute Assessment and plan: Notes reviewed from Palliative care states that the pt has lost over 30kilos over the last year. I did d/w the legal guardian that this is concerning for an occult malignancy. CT scan of chest/abd/pelvis did not show any clear masses. Will consider appetitite stimulants as well as an endoscopy. Pt is unable to give history but I do wonder about PUD. Will order a h. pylori in the interim 11/01/24 Discussed with legal guardian who did want to pursue EGD. Will get input from in regards to feasability 11/12/24 Notes from [facility] reviewed. Will communicate with Dr Ngo for plan 11/03/24 tumor markers have been unrevealing Subjective Subjective Interval history since last seen: PT essentially non verbal, does not appear to be in distress Exam Narrative Exam Narrative: HEENT: Normocephalic atraumatic mucous membranes moist bitemporal wasting Neck: No lymphadenopathy no JVD no thyroid megaly Cardiovascular: Regular rate rhythm no murmur rubs or gallops Lungs: Bilateral wheeze but no accessory muscle use Abdomen: Scaphoid abdomen Extremities: No cyanosis clubbing or edema decreased muscle mass Psych: Patient is essentially nonverbal Objective Last Vital Signs Temp 37.1 C 11/03/24 15:19 Pulse 64 11/03/24 15:19 Resp 18 11/03/24 15:19 BP 105/51 L 11/03/24 15:19 Pulse Ox 99 11/03/24 15:19 Laboratory Results - last 24 hr 11/01/24 11/01/24 11/03/24 06:15 10:30 06:30 Total Bilirubin 0.39 Conjugated Bilirubin 0.1 AST 49 H ALT 42 Alkaline Phosphatase 107 Total Protein 5.0 L Albumin 1.9 L Lipase 31 Free PSA <0.1 Total PSA 0.20 PSA Free/Total Ratio See Comment Beta HCG, Quant <0.6 Stool H. pylori Ag Positive A Time Spent with Patient Time Spent with Patient: 25-34 minutes Time was spent: preparing to see the patient(eg.review tests), obtaining and/or reviewing separately otained hiistory, ordering medications,tests, procedures, referring, communicating with other health post acute care registered nurse, indepentently interpreting results, counseling the patient and care coordination
[2024-11-03 19:28] VITALS: BP 106/58; PULSE 69; RESP 18; TEMP 36.8; O2SAT 96
[2024-11-03] MEDS: Mirtazapine 15 MG TAB 7.5 MG PO (21:16)
[2024-11-03] MEDS: Rosuvastatin 10 MG TAB PO (21:17)
[2024-11-03] MEDS: Acetaminophen 325 MG TAB PO (21:17)
[2024-11-03] MEDS: Insulin Aspart 300 UNITS/3 ML PEN SC (21:29)
[2024-11-03 23:15] VITALS: BP 121/65; PULSE 65; RESP 18; TEMP 36.9; O2SAT 98
[2024-11-04 03:29] VITALS: BP 100/54; PULSE 59; RESP 14; TEMP 36.7; O2SAT 97
[2024-11-04 07:51] VITALS: BP 110/58; PULSE 65; RESP 18; TEMP 37; O2SAT 97
[2024-11-04] MEDS: CEFEPIME 2 GM in Normal Saline 100 ML IVPB ×2 (09:19→21:57)
[2024-11-04] MEDS: Potassium Chloride 20 MEQ TABCR PO ×2 (09:19→21:58)
[2024-11-04] MEDS: Ketoconazole 2% CREAM 15 GM TUBE TP (09:22)
[2024-11-04] MEDS: Normal Saline Flush 10 ML SYR IVP ×2 (09:23→21:59)
[2024-11-04] MEDS: Nystatin POWDER 15 GM JAR TP (09:23)
[2024-11-04 11:36] VITALS: BP 119/73; PULSE 70; RESP 18; TEMP 36.8; O2SAT 96
--- NOTE | 2024-11-04 11:42 | W.PM.PROGNOT ---
Date of Service Date of service: 11/04/24 Time of Service: 11:42 Assessment and Plan Assessment and plan (1) Severe sepsis: Status: Acute Assessment and plan: -patient met criteria for severe sepsis on admission with HR 98, RR 26, sourse of infection being CAP, SILVANA with Cr 1.7 (baseline 0.9), will continue with broad spectrum abx and await culture results. -started on cefepime, will continue (2) Aspiration into airway: Status: Acute Assessment and plan: (3) Intellectual disability: Status: Acute Assessment and plan: -POC d/w legal guardian. (4) Pneumonia: Status: Acute Assessment and plan: as above (5) Advanced care planning/counseling discussion: Status: Acute Assessment and plan: pt is on heparin for dvtp (6) Unintended weight loss: Status: Acute Assessment and plan: -Notes reviewed from Palliative care states that the pt has lost over 30kilos over the last year. -previous physician discussed legal guardian that this is concerning for an occult malignancy. -CT scan of chest/abd/pelvis did not show any clear masses. -Will consider appetitite stimulants as well as an endoscopy; patient high risk for anesthesia, however, will Palliative to readdress with Guardian regarding benefit of endoscopy given that it is documented patient would not want any invasive procedures or interventions Subjective Subjective Interval history since last seen: Patient remains nonverbal does not appear to be in any acute distress Exam Narrative Exam Narrative: Chronically ill-appearing older gentleman laying in bed in no acute distress with significant signs of cachexia and bitemporal wasting, awake, nonverbal, heart regular rhythm, lungs clear to auscultation bilaterally, abdomen soft, nontender, nondistended Objective Last Vital Signs Temp 98.2 F 11/04/24 11:36 Pulse 70 11/04/24 11:36 Resp 18 11/04/24 11:36 BP 119/73 11/04/24 11:36 Pulse Ox 96 11/04/24 11:36 Laboratory Results - last 24 hr 11/01/24 11/01/24 06:15 10:30 Free PSA <0.1 Total PSA 0.20 PSA Free/Total Ratio See Comment Beta HCG, Quant <0.6 Stool H. pylori Ag Positive A Time Spent with Patient Time Spent with Patient: >50 minutes Time was spent: preparing to see the patient(eg.review tests), obtaining and/or reviewing separately otained hiistory, ordering medications,tests, procedures, referring, communicating with other health inspector health care facilities, indepentently interpreting results, counseling the patient and care coordination
[2024-11-04] MEDS: Insulin Aspart 300 UNITS/3 ML PEN SC ×2 (12:51→17:13)
[2024-11-04 19:57] VITALS: BP 120/57; PULSE 66; RESP 18; TEMP 36.8; O2SAT 94
[2024-11-04] MEDS: Acetaminophen 325 MG TAB PO (21:58)
[2024-11-04] MEDS: Rosuvastatin 10 MG TAB PO (21:58)
[2024-11-04] MEDS: Mirtazapine 15 MG TAB 7.5 MG PO (21:59)
[2024-11-04] MEDS: Docusate Sodium 100 MG CAP PO (21:59)
[2024-11-04 23:22] VITALS: BP 103/53; PULSE 77; RESP 17; TEMP 38; O2SAT 96
[2024-11-05] VITALS (8 sets, daily range): BP systolic 87–112; BP diastolic 39–55; PULSE 84–97; RESP 14–17; TEMP 37.3–38.9; O2SAT 93–96
[2024-11-05] MEDS: CEFEPIME 2 GM in Normal Saline 100 ML IVPB ×2 (08:40→21:47)
[2024-11-05] MEDS: Normal Saline Flush 10 ML SYR IVP ×3 (08:41→21:55)
[2024-11-05] MEDS: Nystatin POWDER 15 GM JAR TP (08:44)
[2024-11-05] MEDS: Potassium Chloride 20 MEQ TABCR PO ×2 (08:45→21:49)
[2024-11-05] MEDS: Enoxaparin 40 MG/0.4 ML SYR SC (08:45)
[2024-11-05] MEDS: Ketoconazole 2% CREAM 15 GM TUBE TP (08:45)
--- NOTE | 2024-11-05 10:50 | PGE_ITS ---
Date of Service Date of service: 11/05/24 Time of Service: 10:50 Assessment and Plan Assessment and plan (1) Unintended weight loss: Status: Acute Assessment and plan: -Notes reviewed from Palliative care states that the pt has lost over 30kilos over the last year. -previous physician discussed legal guardian that this is concerning for an occult malignancy. -CT scan of chest/abd/pelvis did not show any clear masses. -Will consider appetitite stimulants as well as an endoscopy; patient high risk for anesthesia, however, will Palliative to readdress with Guardian regarding benefit of endoscopy given that it is documented patient would not want any invasive procedures or interventions (2) Severe sepsis: Status: Acute Assessment and plan: -patient met criteria for severe sepsis on admission with HR 98, RR 26, sourse of infection being CAP, SILVANA with Cr 1.7 (baseline 0.9), will continue with broad spectrum abx -urine culture growing two species of roldan-sensitive e. coli -started on cefepime, will continue (3) Aspiration into airway: Status: Acute Assessment and plan: (4) Intellectual disability: Status: Acute Assessment and plan: -POC d/w legal guardian. (5) Pneumonia: Status: Acute Assessment and plan: as above (6) Advanced care planning/counseling discussion: Status: Acute Assessment and plan: pt is on heparin for dvtp Subjective Subjective Interval history since last seen: Patient remains nonverbal does not appear to be in any acute distress Exam Narrative Exam Narrative: Chronically ill-appearing older gentleman laying in bed in no acute distress with significant signs of cachexia and bitemporal wasting, awake, nonverbal, heart regular rhythm, lungs clear to auscultation bilaterally, abdomen soft, nontender, nondistended Objective Last Vital Signs Temp 99.1 F 11/05/24 08:56 Pulse 86 11/05/24 08:56 Resp 17 11/05/24 08:56 BP 112/52 L 11/05/24 08:56 Pulse Ox 96 11/05/24 08:56 Time Spent with Patient Time Spent with Patient: >50 minutes Time was spent: preparing to see the patient(eg.review tests), obtaining and/or reviewing separately otained hiistory, ordering medications,tests, procedures, referring, communicating with other health senior care manager, indepentently interpreting results, counseling the patient and care coordination
[2024-11-05 20:13] LABS: Lactate 1.2 mmol/L (0.6-1.4)
[2024-11-05 20:14] LABS: HCT 32.6 % (40.0-50.0); HGB 10.7 g/dL (13.5-17.5); MCH 27.8 pg (27.0-33.0); MCHC 32.8 % (32.0-36.0); MCV 85 fL (80-95); Platelet Count 138 10^3/uL (130-400); RBC 3.85 10^6/uL (4.36-5.78); RDW 15.3 % (11.8-14.1); RDW-SD 47.6 fL; WBC 7.16 10^3/uL (4.4-10.8)
[2024-11-05 20:27] LABS: Magnesium 1.4 mg/dL (1.8-2.4)
--- NOTE | 2024-11-05 20:27 | NUR.NOTE ---
Addendum entered by Stephanie Villa RN 11/06/24 00:36: Blood cultures, CBC, CMP, and Mag collected per lab. PRN acetaminophen administered per MAR for elevated temp (39.3C), recheck 38.6C. Pt skin hot to touch, intermittently diaphoretic. Additional PIV placed for continuous fluids. LR @ 125/hr initiated. Previous indwelling daniel discontinued, noted to have crystallized sediment adhered to tip/balloon. Pt urine appears turbid and cloudy with sediment. New 16F catheter with 10cc balloon placed and urine specimen collected. Urine post insertion noted to be pink tinged initially, with resolution to previous yellow/cloudy status with continuous draining to gravity bag. Will continue to monitor closely. Original Note: during shift change bedside reporting pt was noted to be lethargic, skin hot and not responding as baseline status. temperature noted to be 102.8F, P 97, BP 91/39. notified provider of pts decline in status. provider ordered labs, blood cultures, new daniel placement with urine collection. will rehydrate with IV fluids. new order for IV vancomycin as well.
[2024-11-05 20:33] LABS: ALT 44 U/L (16-63); AST 58 U/L (15-37); Albumin 1.8 g/dL (3.4-5.0); Alkaline Phosphatase 111 U/L (46-116); BUN 11 mg/dL (7-18); Bilirubin, Total 0.34 mg/dL (0.2-1.0); CREATININE 1.1 mg/dL (0.70-1.30); Calcium 7.2 mg/dL (8.5-10.1); Chloride 105 mmol/L (98-107); Estimated GFR 71.32 (mL/min/1.73m2); Glucose 103 mg/dL (74-106); Sodium 137 mmol/L (136-145); Total Protein 5.2 g/dL (6.4-8.2)
[2024-11-05] MEDS: Lactated Ringers 1,000 ML 125 ML IV (21:47)
[2024-11-05] MEDS: Rosuvastatin 10 MG TAB PO (21:48)
[2024-11-05] MEDS: Mirtazapine 15 MG TAB 7.5 MG PO (21:49)
[2024-11-05] MEDS: Pantoprazole 40 MG VIAL IVP (21:55)
[2024-11-05] MEDS: Acetaminophen 325 MG TAB PO (22:04)
[2024-11-06] VITALS (9 sets, daily range): BP systolic 96–118; BP diastolic 53–69; PULSE 75–84; RESP 14–20; TEMP 37–38.1; O2SAT 93–99
[2024-11-06] MEDS: VANCOMYCIN 750 MG in Normal Saline 250 ML 166.667 MG IVPB (00:23)
[2024-11-06] MEDS: Water,Injection,Sterile 10 ML VIAL (00:37)
[2024-11-06] MEDS: MAGNESIUM SULFATE 2 GM/50 ML BAG IV_INF (01:10)
[2024-11-06] MEDS: Normal Saline Flush 10 ML SYR IVP ×5 (01:11→21:28)
[2024-11-06] MEDS: Lactated Ringers 1,000 ML 125 ML IV (06:39)
[2024-11-06 06:58] LABS: HGB 10.5 g/dL (13.5-17.5); MCH 27.6 pg (27.0-33.0); MCHC 31.8 % (32.0-36.0); MCV 87 fL (80-95); MPV 9.6 fL (8.0-11.0); Platelet Count 146 10^3/uL (130-400); RBC 3.81 10^6/uL (4.36-5.78); RDW 15.5 % (11.8-14.1); RDW-SD 49.1 fL; WBC 7.76 10^3/uL (4.4-10.8)
[2024-11-06 07:15] LABS: Anion Gap 1.8 mmol/L (3-11); BUN 13 mg/dL (7-18); CO2 30.2 mmol/L (21.0-32.0); Calcium 7.5 mg/dL (8.5-10.1); Chloride 107 mmol/L (98-107); Estimated GFR 79.97 (mL/min/1.73m2); Glucose 89 mg/dL (74-106); Potassium 4.3 mmol/L (3.5-5.1); Sodium 139 mmol/L (136-145); Vancomycin, Random 10.3 ug/mL
[2024-11-06] MEDS: Enoxaparin 40 MG/0.4 ML SYR SC (08:16)
[2024-11-06] MEDS: Potassium Chloride 20 MEQ TABCR PO (08:16)
[2024-11-06] MEDS: CEFEPIME 2 GM in Normal Saline 100 ML IVPB (08:16)
--- NOTE | 2024-11-06 08:41 | PDOC.CMPRO ---
Date of service: 11/06/24 Time of Service: 08:41 Care Management Progress Note Progress Note Text Progress Note Text: Gera was sleeping in a recliner when CM met with him. He appears frail, but comfortable and is holding a well loved natalie bear. Kathrin from Palliative will be meeting with his Guardian Alberta and home care provider Marjorie this afternoon to discuss goals of care moving forward; further diagnostic testing vs comfort care. Alberta feels that Marjorie will be able to care for Gera at home on Hospice, if needed and asks for some time for coordination. Discharge Potential Discharge Needs: PCP F/U Appt Anticipated Barriers to Discharge: Medical Status Patient/Family Education Needs: Review discharge instructions, discuss Ask Me Three Transportation: Private vehicle Plan: Anticipate, Gera will transition to comfort care here at [facility] and discharge home on Hospice is stable on . His Guardian is meeting with Palliative this afternoon to discuss Gera's goals and options for care moving forward. Gera lives at an [facility] home and they would need a few days to mentally prepare if going home on Hospice. CM will follow and continue to assess for discharge needs. SDOH(Care Management) Screening Will the Patient Participate in the Screening?: Unable to obtain Health Related Social Needs Health related social needs details: Pt unable to verbalize needs
[2024-11-06] MEDS: Ketoconazole 2% CREAM 15 GM TUBE TP (09:17)
[2024-11-06] MEDS: Nystatin POWDER 15 GM JAR TP (09:18)
--- NOTE | 2024-11-06 09:27 | W.PM.PROGNOT ---
Date of Service Date of service: 11/06/24 Time of Service: 09:27 Assessment and Plan Assessment and plan (1) Unintended weight loss: Status: Acute Assessment and plan: -Notes reviewed from Palliative care states that the pt has lost over 30kilos over the last year. -previous physician discussed legal guardian that this is concerning for an occult malignancy. -CT scan of chest/abd/pelvis did not show any clear masses. 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 to [facility] with plan to DC home with hospice on if the patent is appropriate at that time (2) Severe sepsis: Status: Acute Assessment and plan: -patient met criteria for severe sepsis on admission with HR 98, RR 26, sourse of infection being CAP, SILVANA with Cr 1.7 (baseline 0.9), will continue with broad spectrum abx -urine culture growing two species of roldan-sensitive e. coli -started on cefepime, will continue (3) Aspiration into airway: Status: Acute Assessment and plan: (4) Intellectual disability: Status: Acute Assessment and plan: -POC d/w legal guardian. (5) Pneumonia: Status: Acute Assessment and plan: as above (6) Advanced care planning/counseling discussion: Status: Acute Assessment and plan: pt is on heparin for dvtp Subjective Subjective Interval history since last seen: Patient remains nonverbal does not appear to be in any acute distress Exam Narrative Exam Narrative: Chronically ill-appearing older gentleman laying in bed in no acute distress with significant signs of cachexia and bitemporal wasting, awake, nonverbal, heart regular rhythm, lungs clear to auscultation bilaterally, abdomen soft, nontender, nondistended Objective Last Vital Signs Temp 98.6 F 11/06/24 07:39 Pulse 75 11/06/24 07:39 Resp 20 11/06/24 07:39 BP 100/59 L 11/06/24 07:39 Pulse Ox 96 11/06/24 07:39 Laboratory Results - last 24 hr 11/05/24 11/06/24 20:06 06:39 WBC 7.16 7.76 RBC 3.85 L 3.81 L Hgb 10.7 L 10.5 L Hct 32.6 L 33.0 L MCV 85 87 MCH 27.8 27.6 MCHC 32.8 31.8 L RDW 15.3 H 15.5 H Plt Count 138 146 MPV 10.0 9.6 VBG Lactate 1.2 Sodium 137 139 Potassium 5.0 4.3 Chloride 105 107 Carbon Dioxide 28.0 30.2 Anion Gap 4.0 1.8 L BUN 11 13 Creatinine 1.1 1.0 Est GFR (CKD-EPI 2020) 71.32 79.97 Glucose 103 89 Calcium 7.2 L 7.5 L Magnesium 1.4 L Total Bilirubin 0.34 AST 58 H ALT 44 Alkaline Phosphatase 111 Total Protein 5.2 L Albumin 1.8 L Random Vancomycin 10.3 Time Spent with Patient Time Spent with Patient: >50 minutes Time was spent: preparing to see the patient(eg.review tests), obtaining and/or reviewing separately otained hiistory, ordering medications,tests, procedures, referring, communicating with other health spiritual care coordinator, indepentently interpreting results, counseling the patient and care coordination
[2024-11-06] MEDS: VANCOMYCIN/WATER (PEG) 1 GM/200 ML BAG IVPB (10:12)
[2024-11-06] MEDS: Acetaminophen 325 MG TAB PO (10:54)
--- NOTE | 2024-11-06 15:33 | PCNE_ITS ---
Date of service: 11/06/24 Time of Service: 14:00 History of Present Illness Narrative: Mr. Boss is a 74 y/o M currently hospitalized at [facility] 2/2 unintentional weight loss; initial PC consult on 10/31/28 to review GOC; consult placed again today to review POC and potential transition to comfort directed care; report gathered from guardian Alberta, [facility] Edith, caregiver Anamaria and staff Gera has had unexplained weight loss w/reduced oral intake for last year, w/increase most recently. He has also become weaker in past year. historically Gera has declined and became extremely upset/distressed w/HC interactions, especially w/needles and tests, new people. his anxiety is severe, requiring sedatives prior to procedures/labs/toe nail trimmings. 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 he was placed on IVF after they were stopped, she wonders why they were restarted - per staff, IVF restarted d/t dehydration concerns; - he is more swollen today, both feet and arms - on IVabx for sepsis, UTI and/or PNA per staff - oral intake: has been good, tolerating most foods, doesn't always like them; he is on modified moist/minced diet, thickened liquid, they offer him sips of water intermittently, they are providing full feed assist, high aspiration risk/precautions - activity: OOB w/max 2 person assist, at least daily; shuffling feet and unstable; Anamaria reports he does walk at home - labs this morning, w/lovenox injection he screams, VS q4h - BLE edema present today, compression stockings on - daniel in place he typically loves to eat, can eat a lot; loves mashed potatoes, baked beans, ice cream; tolerates thickened liquids appropriately, will drink too fast and choke if left unassisted he does not show pain regularly, they are unaware of his pain identifiers, to date has shown no pain he loves omari, music, Monique, omari trees and lights; loves dogs, babies and cartoons, Assessment and Plan Assessment and plan (1) Aspiration of food: Status: Acute (2) Recurrent aspiration pneumonia: Status: Acute (3) Unintended weight loss: Status: Acute (4) Developmental disability: Status: Acute (5) Nonverbal: Status: Acute (6) Palliative care patient: Status: Acute (7) Comfort measures only status: Status: Acute (8) Encounter for hospice care discussion: Status: Acute Assessment and plan: will add to watch list for hospice (9) Advanced care planning/counseling discussion: Status: Acute Assessment and plan: Decision to transition to comfort directed care made today. reviewed plan with guardian Alberta, caregiver Anamaria and [facility] ERICKA Sharma. Gera historically has not only demonstrated a deep fear of health care settings and work-ups, he has significant agitation and distress when he is in these scenarios. with his unexplained weight loss, of unknown origin, and surgical consult concerns for too high risk (something they were already trending towards w/Dr Eden previously), the decision at this time will be to not pursue further work up or investigation to current illnesses or unexplained weight loss. - transition to comfort directed care to start now: stop IVFs, abxs, VS monitoring, any needle sticks, etc - focus on quality of life: he loves Om[place]: exposure to [place] trees, lights, decorations, listening to omari music 07/06 (if appropriate), would love to have him walked around hallway/hospital to see decorations, as this is something he historically likes - offer any of favorite foods: mashed potatoes, meatloaf, ice cream, baked beans; we reviewed he may have more aspiration events, but as long as he is comfortable, he will be allowed to eat what he prefers, frequent offers for sips, may continue thickened liquid d/t potential preference If Gera is stable on , plan for discharge home to [facility] on hospice. If he is not stable, he can remain in hospital for EOL care. - DME needs at home: hospital bed, O2; they will ask Anamaria if there are more needs - If transferred home: will need ambulance, will need to be coordinated via and hospice, reviewed plan for mid-morning if possible Review of Systems Narrative: as per HPI PFSH All Active Problems (Updated 11/06/24 @ 17:20 by Aaliyah Saeed NP) Encounter for hospice care discussion (Acute) Comfort measures only status (Acute) Aspiration of food (Acute) Elevated lipase (Acute) Recurrent aspiration pneumonia (Acute) Unintended weight loss (Acute) Developmental disability (Acute) Nonverbal (Acute) Advanced care planning/counseling discussion (Acute) Palliative care patient (Acute) Abnormal weight loss (Acute) Acute hypotension (Acute) Pneumonia (Acute) UTI (urinary tract infection) (Acute) Hyperglycemia without ketosis (Acute) Cholelithiasis (Chronic) Shock due to systemic infection (Acute) Acute dehydration (Acute) Aspiration into airway (Acute) Rash (Acute) Pneumonia (Acute) Severe sepsis (Acute) Tubular adenoma of colon (Acute ~09/2023) Stasis dermatitis of 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 venous hypertension (Acute) Onychomycosis (Acute) Skin rash (Acute) Pain, foot (Acute) Nail dystrophy (Acute) Camptocormia (Acute) Cognitive changes (Acute) Excess ear wax (Acute ~08/11/22) Urinary incontinence (Acute) Squamous cell carcinoma (Acute) Myalgia (Acute) Tubulovillous adenoma (Acute) Colon polyps (Acute) adenomatous polyp 2022 repeat in 2025 Strain of right hip (Acute) Seborrheic keratoses (Acute) Impaired fasting glucose (Acute) Intellectual disability (Acute) PRINCE (dyspnea on exertion) (Acute) Medical History Failure to thrive in adult Pneumonia History of prediabetes Family history of malignant neoplasm of digestive organs Blindness/low vision History of colon polyps Dyspnea History of squamous cell carcinoma Hyperlipidemia Not for resuscitation Anxiety 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 Per caregiver has extreme fear of doctors and medical providers. Proivder states to keep things as low samano as possible and not high energy. Exam Narrative Exam Narrative: General: older adult male, lying in hospital bed w/HOB elevated; nonverbal, does not track eyes to verbal stimuli; no grimace or groan to light palpation for pulses or neck/face; when [employer] music is playing he sings along and smiles HEENT: normocephalic, atraumatic Skin: dry, atrophy Ext: BLE 2+ edema; pulses 1+ bilat; RUE radial pulse 2+, BUE 1+ edema Psych: non-verbal; non-distressed Results Last Vital Signs Temp 100.0 F H 11/06/24 13:00 Pulse 80 11/06/24 13:00 Resp 14 11/06/24 13:00 BP 97/53 L 11/06/24 13:00 Pulse Ox 95 11/06/24 13:00 Labs 11/06/24 06:39 11/06/24 06:39 Labs: Laboratory Results - last 24 hr 11/05/24 11/06/24 20:06 06:39 WBC 7.16 7.76 RBC 3.85 L 3.81 L Hgb 10.7 L 10.5 L Hct 32.6 L 33.0 L MCV 85 87 MCH 27.8 27.6 MCHC 32.8 31.8 L RDW 15.3 H 15.5 H Plt Count 138 146 MPV 10.0 9.6 VBG Lactate 1.2 Sodium 137 139 Potassium 5.0 4.3 Chloride 105 107 Carbon Dioxide 28.0 30.2 Anion Gap 4.0 1.8 L BUN 11 13 Creatinine 1.1 1.0 Est GFR (CKD-EPI 2020) 71.32 79.97 Glucose 103 89 Calcium 7.2 L 7.5 L Magnesium 1.4 L Total Bilirubin 0.34 AST 58 H ALT 44 Alkaline Phosphatase 111 Total Protein 5.2 L Albumin 1.8 L Random Vancomycin 10.3 Time Spent Time Spent with Patient Time Spent(min): 120
[2024-11-06] MEDS: Refresh PLUS Eye Drops 0.4ml 1 EACH OU (15:36)
[2024-11-06] MEDS: Refresh PLUS Eye Drops 0.4ml 2 EACH OU (21:27)
[2024-11-06] MEDS: MORPHine 4 MG/ML SYR IV/SC (21:28)
[2024-11-06] MEDS: Scopolamine 1 MG/3 DAYS PATCH TD (21:28)
[2024-11-07] MEDS: LORazepam 2 MG/ML VIAL IV/SC (01:08)
--- NOTE | 2024-11-07 07:40 | W.PC.ACHO ---
Registration Status: Primary Language: Preferred Language: ED Information & Data Chief Complaint GenMedical 10/30/24 16:09 Triage Note Pt arrives to ED via EMS for 10/30/24 15:03 respiratory distress. 95% on RA upon arrival. Caregiver reports a worsening cough. Hypotension reported by EMS Medical / Surgical History (Last Reviewed 11/06/24 @ 15:59 by Aaliyah Saeed NP) Failure to thrive in adult Pneumonia History of prediabetes Family history of malignant neoplasm of digestive organs Blindness/low vision History of colon polyps Dyspnea History of squamous cell carcinoma Hyperlipidemia Not for resuscitation Anxiety Villous adenoma of rectum (~08/11/22) Facial basal cell cancer Sessile colonic polyp Partial blindness Family hx of colon cancer (Last Reviewed 11/06/24 @ 15:59 by Aaliyah Saeed NP) History of colonoscopy with polypectomy (~08/11/22) History of colonoscopy (~09/2023) Most Recent Vital Signs Temperature 37.1 C 11/06/24 15:46 Temperature Source Temporal Artery Scan 11/06/24 15:46 Pulse 80 11/06/24 15:46 Pulse 66 10/31/24 15:30 Respiratory Rate 18 11/06/24 15:46 Respiratory Effort Non-Labored 10/30/24 22:47 Respiratory Depth Shallow 10/30/24 22:47 Respiratory Pattern Normal 10/30/24 22:47 Blood Pressure 118/69 11/06/24 15:46 Blood Pressure Mean 70 10/31/24 15:30 Blood Pressure Position Left Lateral 10/30/24 22:47 Pulse Oximetry 98 11/06/24 15:46 Oxygen Delivery Method Room Air 11/06/24 15:46 Oxygen Flow Rate 0 11/06/24 15:46 Pain Level 0 11/07/24 06:11 Comment MAP 68, BS 138 11/06/24 13:00 Comment Norepi@[email or web address] 10/31/24 01:30 Allergies No Known Allergies Allergy (Verified 10/30/24 15:12) Precautions Isolation Droplet precaution 10/30/24 15:20 Active Medications Generic Name Dose Route Start Last Admin Trade Name Freq PRN Reason Stop Dose Admin Carboxymethylcellulose Sodium 1 each 11/06/24 10:49 11/06/24 15:36 Refresh Plus Eye Drops 0.4ml OU 1 drp PRN PRN Administration Carboxymethylcellulose Sodium 2 each 11/06/24 17:11 11/06/24 21:27 Refresh Plus Eye Drops 0.4ml OU 2 drp PRN PRN Administration Dry/itchy eyes Ketoconazole 0 gm 10/31/24 08:30 11/06/24 09:17 Ketoconazole 2% Cream 15 Gm Tube TP 1 applic DAILY TOM Administration Lorazepam 0.5 - 1 mg 11/06/24 17:11 11/07/24 01:08 Lorazepam 2 Mg/Ml Vial IV/SC 1 mg Q1H PRN PRN Administration Nystatin 0 gm 10/30/24 23:00 11/07/24 06:54 Nystatin Powder 15 Gm Jar TP Not Given BID TOM Scopolamine HBr 1 mg 11/06/24 18:00 11/06/24 21:28 Scopolamine 1 Mg/3 Days Patch TD 1 mg Q72H TOM Administration Sodium Chloride 0 ml 10/30/24 15:24 11/06/24 15:42 Normal Saline Flush 10 Ml Syr IVP 10 ml PRN PRN Administration Sodium Chloride 0 ml 10/30/24 20:00 11/06/24 21:28 Normal Saline Flush 10 Ml Syr IVP 10 ml BID TOM Administration IV IV Catheter Type [Left Bicep] Saline Lock IV Catheter Type [Left Upper Saline Lock arm] IV Catheter Type [Right Saline Lock Forearm] IV Catheter Type [Left Wrist] Saline Lock IV Catheter Gauge [Left Bicep] 20 IV Catheter Gauge [Left Upper 22 arm] IV Catheter Gauge [Right 20 Forearm] IV Catheter Gauge [Left Wrist] 20 11/05/24 19:52 Blood Culture - Preliminary Blood NO GROWTH 24 HOURS 11/05/24 20:06 Blood Culture - Preliminary Blood NO GROWTH 24 HOURS [id number] Documentation Fingerstick Glucose Start: 10/30/24 19:44 Freq: .ACHS Status: Complete Protocol: Activity Type Activity Date Activity User E-sign Co-sign Detail Recorded Client Recorded Date Recorded By Document 11/06/24 16:34 BKG DAEMON(3) [id number] 11/06/24 16:36 BKG DAEMON(4) Intake and Output - 24 Hour Total 10/30/24 14:46 thru 11/07/24 03:05 Intake Total 97013.590 Output Total 53764 Balance 2329.590 Weight 58 [place] [address].590 Oral 6540 Output: Urine 78838 Other: Urine Color Yellow Urine Appearance Clear Urine Odor Strong Comment daniel is patent Stool Size Smear Stool Characteristics Soft Urinary Catheter Urinary Catheter Date of 11/05/24 Insertion [2-way Urethral] Urinary Catheter Date of 11/05/24 Insertion [2-way Urethral] Urinary Catheter Date of 10/30/24 Insertion [2-way Urethral] Time of insertion [2-way 23:35 Urethral] Time of insertion [2-way 19:48 Urethral] Falls Risk Assessment History of Falls Previous History 10/30/24 22:47 Contributing Factors Unstable 10/30/24 15:21 Ambulatory Aids Independent 10/30/24 15:21 Tubes/Lines With any additional score 10/30/24 15:21 Gait Evaluation No gait disturbance 10/30/24 15:21 Cognition Cognitive impairment 10/30/24 15:21 Fall Total Score 15 10/30/24 22:47 Level of Risk Standard/Low Risk 10/30/24 22:47 Problems (Last Reviewed 11/06/24 @ 15:59 by Aaliyah Saeed NP) Encounter for hospice care discussion (Acute) Comfort measures only status (Acute) Aspiration of food (Acute) Elevated lipase (Acute) Recurrent aspiration pneumonia (Acute) Unintended weight loss (Acute) Developmental disability (Acute) Nonverbal (Acute) Advanced care planning/counseling discussion (Acute) Palliative care patient (Acute) Abnormal weight loss (Acute) Acute hypotension (Acute) Pneumonia (Acute) UTI (urinary tract infection) (Acute) Hyperglycemia without ketosis (Acute) Cholelithiasis (Chronic) Shock due to systemic infection (Acute) Acute dehydration (Acute) Aspiration into airway (Acute) Pneumonia (Acute) Severe sepsis (Acute) Stasis dermatitis of 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 venous hypertension (Acute) Cognitive changes (Acute) Impaired fasting glucose (Acute) Intellectual disability (Acute) Notes 11/05/24 20:27 Nursing Notes by Nely De Santiago Addendum entered by Stephanie Villa RN 11/06/24 00:36: Blood cultures, CBC, CMP, and Mag collected per lab. PRN acetaminophen administered per JAN for elevated temp (39.3C), recheck 38.6C. Pt skin hot to touch, intermittently diaphoretic. Additional PIV placed for continuous fluids. LR @ 125/hr initiated. Previous indwelling daniel discontinued, noted to have crystallized sediment adhered to tip/balloon. Pt urine appears turbid and cloudy with sediment. New 16F catheter with 10cc balloon placed and urine specimen collected. Urine post insertion noted to be pink tinged initially, with resolution to previous yellow/cloudy status with continuous draining to gravity bag. Will continue to monitor closely. Original Note: during shift change bedside reporting pt was noted to be lethargic, skin hot and not responding as baseline status. temperature noted to be 102.8F, P 97, BP 91/39. notified provider of pts decline in status. provider ordered labs, blood cultures, new daniel placement with urine collection. will rehydrate with IV fluids. new order for IV vancomycin as well. Initialized on 11/05/24 20:27 - END OF NOTE 10/30/24 17:27 Nursing Notes by Miranda Monzon Nursing Note: Pt not given 50mg/1ml dose of ketamine for imaging. 1ml dose wasted with Gaye Halifax, Unable to confirm waste in Pyxis. Initialized on 10/30/24 17:27 - END OF NOTE v v v v v v v v v Sending and/or Receiving Nurses: Please use comment section below to note any information pertinent to the patient hand-off not included above. Information / Comments: PT arrives to 209 form ER Report received from: NADIR Lema [id number]
[2024-11-07] MEDS: Ketoconazole 2% CREAM 15 GM TUBE TP (08:00)
[2024-11-07] MEDS: Nystatin POWDER 15 GM JAR TP (08:00)
--- NOTE | 2024-11-07 09:39 | CMPROGNOTE_ITS ---
Date of service: 11/07/24 Time of Service: 09:39 Care Management Progress Note Progress Note Text Progress Note Text: Gera was sleeping most of the morning and indicated he did not want to eat or be disturbed for extensive morning care. He was sleeping both times CM attempted to meet with him maribell morning. This afternoon Gera is more awake and interactive. His friend and caregiver Ashley was visiting as well as his community coordinator and he was singing [place] Carols with them. CM reached out to his guardian Alberta and provided an update. The current plan is for Gera to discharge back home to his [facility] home on hospice on if he is stable. CM spoke to the hospice/home health aide today and learned that no formal referral has been made but she is aware of Gera and his potential admission to hospice. Discharge Potential Discharge Needs: PCP F/U Appt and Other (possibly hospice) Anticipated Barriers to Discharge: Medical Status Patient/Family Education Needs: Review discharge instructions, discuss Ask Me Three Transportation: Private vehicle Plan: Gera's discharge plan is unclear at this time. He has been transitioned to comfort care but is not imminent. The plan is for him to be discharged home on hospice if he is stable later this week. Due to the holiday, it is unlikely that a hospital bed and home oxygen will be delivered on , so a Wednesday discharge is more realistic. CM updated Alberta about the plan. CM will follow and continue to assess for discharge needs. SDOH(Care Management) Screening Will the Patient Participate in the Screening?: Unable to obtain Health Related Social Needs Health related social needs details: Pt unable to verbalize needs
--- NOTE | 2024-11-07 09:51 | PGE_ITS ---
Date of Service Date of service: 11/07/24 Time of Service: 09:51 Assessment and Plan Assessment and plan (1) Unintended weight loss: Status: Acute Assessment and plan: -Notes reviewed from Palliative care states that the pt has lost over 30kilos over the last year. -previous physician discussed legal guardian that this is concerning for an occult malignancy. -CT scan of chest/abd/pelvis did not show any clear masses. 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 coli -started on cefepime, will continue (3) Aspiration into airway: Status: Acute Assessment and plan: (4) Intellectual disability: Status: Acute Assessment and plan: -POC d/w legal guardian. (5) Pneumonia: Status: Acute Assessment and plan: as above (6) Advanced care planning/counseling discussion: Status: Acute Assessment and plan: pt is on heparin for dvtp Subjective Subjective Interval history since last seen: Patient remains nonverbal does not appear to be in any acute distress Exam Narrative Exam Narrative: Chronically ill-appearing older gentleman laying in bed in no acute distress wi th significant signs of cachexia and bitemporal wasting, awake, nonverbal, heart regular rhythm, lungs clear to auscultation bilaterally, abdomen soft, nontender, nondistended Objective Last Vital Signs Temp 98.8 F 11/06/24 15:46 Pulse 80 11/06/24 15:46 Resp 18 11/06/24 15:46 BP 118/69 11/06/24 15:46 Pulse Ox 98 11/06/24 15:46 Time Spent with Patient Time Spent with Patient: >50 minutes Time was spent: preparing to see the patient(eg.review tests), obtaining and/or reviewing separately otained hiistory, ordering medications,tests, procedures, referring, communicating with other health child day care teacher, indepentently interpreting results, counseling the patient and care coordination
--- NOTE | 2024-11-07 10:06 | TELEFU_ITS ---
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 As pt has not been appropriate for enteral/parenteral feeding options no agressive nutrition intervention have been made outside of attempting to provide nutrient dense, kcal dense food choices within the consistencies of his diet order. Anticipated discharge . Time Spent in Nutritional Counseling and Treatment: 0
[2024-11-07] MEDS: Normal Saline Flush 10 ML SYR IVP ×2 (16:11→21:39)
--- NOTE | 2024-11-07 16:58 | CHAPLAIN ---
Stevie was up in the chair listening to Omari ashford and sometimes singing along, when I visited this afternoon. His guardian was with him. I didn't understand everything Gera said but when I asked if I could get him anything, he said more records. He likes vinyl records and his guardian said she could bring more in. Stevie lives in community longterm. His sister in law has been visiting daily. A brother has also visited.
[2024-11-08] MEDS: Nystatin POWDER 15 GM JAR TP ×2 (09:19→20:41)
[2024-11-08] MEDS: Ketoconazole 2% CREAM 15 GM TUBE TP (09:19)
[2024-11-08] MEDS: Normal Saline Flush 10 ML SYR IVP ×2 (09:19→20:44)
--- NOTE | 2024-11-08 12:48 | W.PM.PROGNOT ---
Date of Service Date of service: 11/08/24 Time of Service: 12:49 Assessment and Plan Assessment and plan (1) Unintended weight loss: Status: Acute Assessment and plan: -Lost over 30kilos over the last year, previous physician discussed legal guardian that this is concerning for an occult malignancy, though CT scan of chest/abd/pelvis did not show any clear masses. -After discussion with Palliative care, surgery, and guardian, decision was made to transition to INTERNATIONAL MARKETING MANAGER status 11/07 and avoid invasive procedures. - appears comfortable today - INTERNATIONAL MARKETING MANAGER medications including PRN morphine, ativan, haldol for pain, anxiety and agitation (2) Severe sepsis: Status: Acute Assessment and plan: -patient met criteria for severe sepsis on admission with HR 98, RR 26, sourse of infection being CAP, SILVANA with Cr 1.7 (baseline 0.9), will continue with broad spectrum abx -urine culture growing two species of roldan-sensitive e. coli -s/p antibiotics cefepime 10/30-11/07, now INTERNATIONAL MARKETING MANAGER. (3) Aspiration into airway: Status: Acute Assessment and plan: Chronic, but now INTERNATIONAL MARKETING MANAGER. Allowing him to eat for pleasure. (4) Intellectual disability: Status: Acute Assessment and plan: -POC d/w legal guardian. (5) Pneumonia: Status: Acute Assessment and plan: as above, s/p course of treatment Subjective Subjective Patient reports: no new complaints; denies nausea, vomiting, shortness of breath or fever Interval history since last seen: 24 hr events: Patient transitioned to INTERNATIONAL MARKETING MANAGER status Mr. Hubbard is not voicing new concerns, appears comfortable. Eating well, no visible aspiration. Exam Narrative Exam Narrative: Chronically ill-appearing cachectic older gentleman laying in bed in no acute distress. Awake, doesn't respond clearly to questions though makes some word-like sounds. heart regular rhythm, lungs clear to auscultation bilaterally, abdomen soft, nontender, nondistended. Extremities warm, not tender, no edema. No open wounds on skin but padded bandages over bony prominences on hips, back Objective Last Vital Signs Temp 37.1 C 11/06/24 15:46 Pulse 80 11/06/24 15:46 Resp 18 11/06/24 15:46 BP 118/69 11/06/24 15:46 Pulse Ox 98 11/06/24 15:46 Time Spent with Patient Time Spent with Patient: 35-49 minutes Time was spent: preparing to see the patient(eg.review tests), obtaining and/or reviewing separately otained hiistory, ordering medications,tests, procedures, referring, communicating with other health resident care supervisor, indepentently interpreting results, counseling the patient and care coordination
--- NOTE | 2024-11-09 08:05 | PCPN_ITS ---
Date of service: 11/09/24 Time of Service: 07:30 Assessment and Plan Assessment and plan (1) Encounter for hospice care discussion: Status: Acute (2) Comfort measures only status: Status: Acute (3) Aspiration of food: Status: Acute (4) Unintended weight loss: Status: Acute (5) Developmental disability: Status: Acute (6) Palliative care patient: Status: Acute (7) Advanced care planning/counseling discussion: Status: Acute Assessment and plan: Gera has been stable since transition to comfort directed care. He has required no PRN meds. His PO intake has remained good. He has not been agitated or distressed, has remained happy. Increased sleeping. Needs full assistance w/activity, OOB transfers. Plan to continue to pursue transfer home to [facility] under care of Anamaria, per plan outlined on Wednesday w/family meeting. - previously added to hospice watch list, w/DME needs identified at hospital bed and O2 for PRN; will need ambulance for transfer home. hospitalist to place referral to hospice. PC contacted hospice to confirm stable for discharge and DME needs. - will need further coordination from CM to hospice regarding discharge, once reviewed needs w/[facility] today. CM to coordinate discharge plan Subjective Subjective Interval history since last seen: Gera has been stable since transition to comfort directed care on Wednesday. He has required no PRN meds. no pain, no agitation, no breathlessness; - scop patch w/good effect on secretions PO intake: has been good, total feed assist, eating most to all of food; continues to drink water, sips to gulps depending on his mood. - continues to make urine appropriately, w/daniel in place Activity: not out of bed yesterday, sleeping and resting more, naps in the day throughout. waking easy if needed. tolerating respositioning when providing. appears comfortable Skin: watching a few areas, covered with mepiplex for prophylaxis, does not appear to be painful; he has not liked people touching feet, including putting TEDs on, so they have kept those off has stayed happy, content, singing cole carols, watching cartoons; no agitation, no calling out. does get a little distressed when approaching belly, thought to be r/t fear of lovenox injections, but w/redirection and explanation tolerates abdominal exam Exam Narrative Exam Narrative: General: older adult male, lying in hospital bed w/HOB elevated; no grimace or groan to light palpation for pulses or neck/face; engages in light conversation w/yes answers, follows light commands of moving legs. awake and alert HEENT: normocephalic, atraumatic, hearing grossly WNL Skin: dry, atrophy Ext: BLE 1+ edema; pulses 1+ bilat; RUE radial pulse 2+, no edema, muscle atrophy BLE Psych: non-distressed, says yes appropriately to closed ended questions Objective Last Vital Signs Temp 98.8 F 11/06/24 15:46 Pulse 80 11/06/24 15:46 Resp 18 11/06/24 15:46 BP 118/69 11/06/24 15:46 Pulse Ox 98 11/06/24 15:46
--- NOTE | 2024-11-09 08:45 | PDOC.CMPRO ---
Date of service: 11/09/24 Time of Service: 08:45 Care Management Progress Note Progress Note Text Progress Note Text: Gera was sleeping in a recliner when CM met with him. He appears comfortable. He transitioned to comfort care measures on 11/07 and will be returning to the [facility] home where he resides with a same day admission to hospice services. [facility] is able to accommodate Gera's admission to services on Wednesday and are currently in the process of coordinating his hospital bed and home O2. Discharge considerations have been developed with support from Gera's Guardian, healthcare team, [facility] . Discharge Potential Discharge Needs: Other (Home with same day admission to Hospice) Anticipated Barriers to Discharge: Other (DME coordination ) Patient/Family Education Needs: Review discharge instructions, discuss Ask Me Three Transportation: EMS Plan: Gera has been transitioned to comfort care but is not imminent. The plan is for him is to be discharged home with same day admission to Hospice services mid-morning on Wednesday (extra time is needed to coordinate DME due to the Holiday and staffing, per [facility]ospice). CM will coordinate EMS transport around 1100. CM will keep [place] updated about the plan. CM will follow and continue to assess for discharge needs. SDOH(Care Management) Screening Will the Patient Participate in the Screening?: Unable to obtain Health Related Social Needs Health related social needs details: Pt unable to verbalize needs
[2024-11-09] MEDS: Ketoconazole 2% CREAM 15 GM TUBE TP (09:04)
[2024-11-09] MEDS: Nystatin POWDER 15 GM JAR TP ×2 (09:04→21:33)
[2024-11-09] MEDS: Normal Saline Flush 10 ML SYR IVP ×2 (09:04→21:34)
--- NOTE | 2024-11-09 10:00 | W.PM.PROGNOT ---
Date of Service Date of service: 11/09/24 Time of Service: 10:00 Assessment and Plan Assessment and plan (1) Unintended weight loss: Status: Acute Assessment and plan: -Lost over 30kilos over the last year, previous physician discussed legal guardian that this is concerning for an occult malignancy, though CT scan of chest/abd/pelvis did not show any clear masses. -After discussion with Palliative care, surgery, and guardian, decision was made to transition to HOME IMPROVEMENT CONTRACTOR status 11/07 and avoid invasive procedures. - appears comfortable today - HOME IMPROVEMENT CONTRACTOR medications including PRN morphine, ativan, haldol for pain, anxiety and agitation, though he hasn't needed these over the past 24 hours - Per CM he hospice will not be set up until 11/10, plan discharge then. (2) Severe sepsis: Status: Acute Assessment and plan: -patient met criteria for severe sepsis on admission with HR 98, RR 26, sourse of infection being CAP, SILVANA with Cr 1.7 (baseline 0.9), will continue with broad spectrum abx -urine culture growing two species of roldan-sensitive e. coli -s/p antibiotics 10/30-, initially vanco/cefepime, now off antibiotics and HOME IMPROVEMENT CONTRACTOR without evidence of ongoing active infection. (3) Aspiration into airway: Status: Acute Assessment and plan: Chronic, but now HOME IMPROVEMENT CONTRACTOR. Followed by HOME CARE ASSOCIATE. Allowing him to eat for pleasure with pureed diet and aspiration precautions. (4) Intellectual disability: Status: Acute Assessment and plan: -POC d/w legal guardian. (5) Pneumonia: Status: Acute Assessment and plan: as above, s/p course of treatment Subjective Subjective Patient reports: tolerating a regular diet; denies diarrhea, vomiting or fever Interval history since last seen: 24 hr: Seen by Kathrin Saeed this morning to coordinate hospice admission No changes clinically. No response to direct questions about pain/discomfort. Exam Narrative Exam Narrative: Cachectic appearing older gentleman sitting up in chair, being fed pudding via spoon, no acute distress. Awake, makes some word-like sounds in response to direct questions. heart regular rhythm, lungs clear to auscultation bilaterally, abdomen soft, nontender, nondistended. Extremities warm, not tender, no edema. Objective Last Vital Signs Temp 37.1 C 11/06/24 15:46 Pulse 80 11/06/24 15:46 Resp 18 11/06/24 15:46 BP 118/69 11/06/24 15:46 Pulse Ox 98 11/06/24 15:46 Time Spent with Patient Time Spent with Patient: 25-34 minutes Time was spent: preparing to see the patient(eg.review tests), obtaining and/or reviewing separately otained hiistory, referring, communicating with other health health care marketing manager and care coordination
[2024-11-09] MEDS: Polyethylene Glycol 3350 17 GM PACKET PO (12:32)
[2024-11-09] MEDS: Scopolamine 1 MG/3 DAYS PATCH TD (18:29)
[2024-11-10] MEDS: Normal Saline Flush 10 ML SYR IVP (07:56)
[2024-11-10] MEDS: Ketoconazole 2% CREAM 15 GM TUBE TP (07:57)
[2024-11-10] MEDS: Nystatin POWDER 15 GM JAR TP (07:57)
--- NOTE | 2024-11-10 09:24 | CMDISCH_ITS ---
Date of service: 11/10/24 Time of Service: 09:24 LACE Index Scoring Tool Questions: Length of Stay (in days): 7 - 13 Was the patient admitted via the E.D.?: Yes Comorbidities: Metastatic Solid Tumor E.D. Visits: 3 Answers: Total Score: 16 Risk of Readmission: High Risk Care Management Discharge Plan Reason for Hospitalization: Pneumonia Discharge Plan: Discharge home via EMS, same day admission to hospice services is coordinated. DME is set up and ready prior to Gera's arrival home. Patient/Family Education Needs: Review discharge instructions, and admission to hospice services, Discuss ask me three. Services Needed at Discharge: Home Health Care Services ([facility], coordinated by CM) and Transportation (EMS, [place], coordinated by CM) SDOH Health Related Social Needs: Health related social needs details Pt unable to verba lize needs Health related social needs details: Pt unable to verbalize needs
--- NOTE | 2024-11-10 11:04 | DSE_ITS ---
Date of service: 11/10/24 Time of Service: 11:04 DS: Diagnosis Discharge Diagnosis (1) Unintended weight loss: Status: Acute (2) Severe sepsis: Status: Acute (3) Aspiration into airway: Status: Acute (4) Intellectual disability: Status: Acute (5) Pneumonia: Status: Acute Discharge Plan Disposition Patient Disposition: Home W/Hospice Services Condition: Fair Discharge Details Reason For Visit: Acute dehydration with bilateral pneumonia and chevy Admit Date/Time: 10/30/24 19:38 Admit Provider: Dat Martel Attending Provider: Dat Martel [facility]: 74 yo M with intellectual disability, minimally verbal. admitted with septic shock associated with pneumonia. He was treated with cefepime and vancomycin. Urine culture also grew pansensitive e coli. He improved clinically and antibiotics were stopped 11/07 and he was stable clinically off antibiotics. He was evaluated by speech pathology and given aspiration precautions, pureed diet with thin liquids. The patient and guardian met with palliative care regarding [facility] [facility] care plan. He has been loosing weight and his primary doctor suspects occult malignancy. Given aspiration events, surgery was consulted to consider EGD, but the decision was made to avoid invasive procedures. He transitioned to DIGITAL COMMUNITY MANAGER status 11/07/24 with plans to discharge on hospice. Home Meds and New Rx's Prescriptions: New polyethylene glycol 3350 17 gram Powder In Packet 17 g PO DAILY PRN PRNQty: 0 0RF glycopyrrolate 0.2 mg/mL Solution 0.2 mg IVP Q2H PRN PRNQty: 10 0RF scopolamine base 1 mg over 3 days Patch 3 Day 1 mg transdermal Q72H Qty: 0 0RF ondansetron 4 mg Tablet,Disintegrating 4 mg PO Q6H PRN PRNQty: 0 0RF carboxymethylcellulose sodium [Refresh Plus] 0.5 % Dropperette 2 drp OU PRN PRN (Reason: Dry/itchy eyes) Qty: 0 0RF Continued ketoconazole 2 % cream 1 applic topical DAILY nystatin [Nystop] 100,000 unit/gram powder 1 applic topical BID acetaminophen 650 mg suppository 650 mg KY Q6H PRN (Reason: fever, mild pain) Qty: 6 0RF Rx Instructions: Hospice Patient hyoscyamine sulfate 0.125 mg tablet,disintegrating 0.125 - 0.25 mg PO Q4H PRN (Reason: secretions) Qty: 24 0RF Rx Instructions: Hospice Patient haloperidol lactate 2 mg/mL concentrate 1 mg PO Q6H PRN (Reason: agitation) Qty: 15 0RF Rx Instructions: Hospice Patient lorazepam 1 mg tablet 1 mg PO Q4H PRN (Reason: anxiety, PRINCE or nausea) Qty: 6 5RF Rx Instructions: Hospice Patient morphine concentrate 100 mg/5 mL (20 mg/mL) solution 5 - 20 mg PO Q1-4H MDD 5 mL PRN (Reason: moderate to severe pain or shortness of breath) Qty: 30 0RF Rx Instructions: Hospice Patient prochlorperazine maleate 10 mg tablet 10 mg PO Q6H PRN (Reason: nausea and vomiting) Qty: 6 0RF Rx Instructions: Hospice Patient bisacodyl [Dulcolax (bisacodyl)] 10 mg suppository 10 mg KY daily PRN (Reason: constipation) Qty: 2 0RF Rx Instructions: Hospice Patient Insert 1 supp KY Daily PRN constipation (no BM in 3 days) Discontinued rosuvastatin 10 mg tablet 10 mg PO DAILY No Action mirtazapine 7.5 mg tablet 7.5 mg PO QHS Discharge Instructions Instructions: Aspiration Pneumonia (DC) Stand Alone Forms: Nursing Discharge Form Referrals: [facility] [OTHER] - ([facility]. non-verbal, weight loss, treated for pneumonia, transitioned to DIGITAL COMMUNITY MANAGER during admission) Activity:: Activity as Tolerated Equipment/Supplies:: No Equipment Needed Diet:: Pureed, thin liquids Discharge Orders Discharge Orders: Discharge Order (Routine); Ordered 11/10/24 Ordered By: Frank Jeffrey DS: Summary Time Spent with Patient providing and/or coordinating discharge services: Greater than 30 minutes Status at Discharge Functional status at discharge: independent ambulation Overall status at discharge: patient is back to baseline Mental Status: mental status grossly normal Speech and Movement: other (minimally verbal, but responds appropriately) Mood: congruent mood Affect: normal affect Quality:SDOH Health Related Social Needs: Health related social needs details Pt unable to verba lize needs Health related social needs details: Pt unable to verbalize needs Exam Narrative Exam Narrative: Cachectic appearing older gentleman sitting up bed, no acute distress. Awake, makes some word-like sounds in response to direct questions. heart regular rhythm, lungs clear to auscultation bilaterally, abdomen soft, nontender, nondistended. Extremities warm, not tender, no edema. Psych Mental Status: mental status grossly normal Speech and Movement: other (minimally verbal, but responds appropriately) Mood: congruent mood Affect: normal affect DS: Data Vitals/I&O Vitals and I&O: Vital Signs Temperature 37.1 C 11/06/24 15:46 Temperature Source Temporal Artery Scan 11/06/24 15:46 Pulse 80 11/06/24 15:46 Pulse 66 10/31/24 15:30 Respiratory Rate 18 11/06/24 15:46 Respiratory Effort Non-Labored 10/30/24 22:47 Respiratory Depth Shallow 10/30/24 22:47 Respiratory Pattern Normal 10/30/24 22:47 Blood Pressure 118/69 11/06/24 15:46 Blood Pressure Mean 70 10/31/24 15:30 Blood Pressure Position Left Lateral 10/30/24 22:47 Pulse Oximetry 98 11/06/24 15:46 Oxygen Delivery Method Room Air 11/08/24 14:16 Oxygen Flow Rate 0 11/08/24 14:16 Pain Level 0 11/09/24 09:46 Comment MAP 68, BS 138 11/06/24 13:00 Comment [email or web address] 10/31/24 01:30 Intake & Output 11/09/24 11/09/24 11/10/24 11:59 23:59 11:59 Intake Total 720 / 2260 1540 / 2260 Output Total 875 / 1075 200 / 1075 600 / 600 Balance -155 / 1185 1340 / 1185 -590 / -590 Intake: IV Oral 720 / 2250 1530 / 2250 Output: Urine 875 / 1075 200 / 1075 600 / 600 Other: Urine Color Yellow Yellow Yellow Straw Urine Appearance Clear Cloudy Cloudy Sediment Sediment Data Completed and Pending Labs on day of discharge: Preliminary micro results at discharge 11/05/24 20:06 Blood Culture - Preliminary Blood NO GROWTH 96 HOURS 11/05/24 19:52 Blood Culture - Preliminary Blood NO GROWTH 96 HOURS PFSH All Active Problems (Updated 11/10/24 @ 10:27 by Frank Jeffrey) Encounter for hospice care discussion (Acute) Comfort measures only status (Acute) Aspiration of food (Acute) Elevated lipase (Acute) Recurrent aspiration pneumonia (Acute) Unintended weight loss (Acute) Developmental disability (Acute) Nonverbal (Acute) Advanced care planning/counseling discussion (Acute) Palliative care patient (Acute) Acute hypotension (Acute) Pneumonia (Acute) UTI (urinary tract infection) (Acute) Hyperglycemia without ketosis (Acute) Cholelithiasis (Chronic) Shock due to systemic infection (Acute) Acute dehydration (Acute) Abnormal weight loss (Acute) Aspiration into airway (Acute) Rash (Acute) Pneumonia (Acute) Severe sepsis (Acute) Tubular adenoma of colon (Acute ~09/2023) Stasis dermatitis of 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 venous hypertension (Acute) Onychomycosis (Acute) Skin rash (Acute) Pain, foot (Acute) Nail dystrophy (Acute) Camptocormia (Acute) Cognitive changes (Acute) Excess ear wax (Acute ~08/11/22) Urinary incontinence (Acute) Squamous cell carcinoma (Acute) Myalgia (Acute) Tubulovillous adenoma (Acute) Colon polyps (Acute) adenomatous polyp 2022 repeat in 2025 Seborrheic keratoses (Acute) Impaired fasting glucose (Acute) Intellectual disability (Acute) PRINCE (dyspnea on exertion) (Acute) Strain of right hip (Acute) Medical History Failure to thrive in adult Pneumonia History of prediabetes Family history of malignant neoplasm of digestive organs Blindness/low vision History of colon polyps Dyspnea History of squamous cell carcinoma Hyperlipidemia Not for resuscitation Anxiety 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 Per caregiver has extreme fear of doctors and medical providers. Proivder states to keep things as low samano as possible and not high energy. Time Spent with Patient Time Spent with Patient: <45 minutes Time was spent: preparing to see the patient(eg.review tests), obtaining and/or reviewing separately otained hiistory, ordering medications,tests, procedures, referring, communicating with other health customer care voice consultant and care coordination
== END 2024-11-10 11:30 | disposition hospice, home (50) | DRG 871 ==
LOC: ER 16:33 → ICU 21:40 → MS 10-31 15:46
PROVIDERS: Family Medicine; Hospitalist; Surgery; Admitting Provider Family Medicine; Emergency Provider Emergency Medicine; PCP Family Medicine; Visit Provider Family Medicine
DX: J18.9 Pneumonia, unspecified organism (principal); R65.21 Severe sepsis with septic shock; K85.10 Biliary acute pancreatitis without necrosis or infection; A41.9 Sepsis, unspecified organism; N30.01 Acute cystitis with hematuria; R47.01 Aphasia; Z68.1 Body mass index [BMI] 19.9 or less, adult; R64 Cachexia; Z51.5 Encounter for palliative care; E86.0 Dehydration; F79 Unspecified intellectual disabilities; R73.01 Impaired fasting glucose; R41.89 Other symptoms and signs involving cognitive functions and awareness; F41.9 Anxiety disorder, unspecified; I87.321 Chronic venous hypertension (idiopathic) with inflammation of right lower extremity; E78.5 Hyperlipidemia, unspecified; T17.928A Food in respiratory tract, part unspecified causing other injury, initial encounter; W44.F3XA Food entering into or through a natural orifice, initial encounter; R13.12 Dysphagia, oropharyngeal phase; Z86.0101 Personal history of adenomatous and serrated colon polyps; B96.20 Unspecified Escherichia coli [E. coli] as the cause of diseases classified elsewhere; H54.8 Legal blindness, as defined in USA; K80.20 Calculus of gallbladder without cholecystitis without obstruction; Z66 Do not resuscitate
CPT/HCPCS: 00123; 36415; 51702; 74177; 80048; 80053; 80076; 83690; 84145; 85027; 85652; 87040; 87077; 87338; 87637; 87641; 93306; 96361; 96365; 96366; 96367; 99223; 99231; 99291; J1650; 71260; 74022; 76705; 80202; 81003; 81015; 82105; 82378; 83605; 83735; 84154; 84443; 84702; 85025; 85610; 87086; 87186; 99232; 99233; 99239; J0692; J1644; J1815; J2060; J2270; J2470; J3370; J3372; J3475; J3490

== ENCOUNTER 2025-03-02 15:09 | Inpatient (IN) | payer OTHER, SELFPAY ==
[2025-03-02 18:02] VITALS: PULSE 72; RESP 19
--- NOTE | 2025-03-02 18:02 | W.PM.HP.N ---
Date of service: 03/02/25 Time of Service: 17:15 Assessment and Plan Assessment and plan (1) Abnormal weight loss: Assessment and plan: Reason for him being on hospice. Has history of multiple GI pre-cancers, skin pre-cancers, etc. Unsure why he is losing weight. Possibly related to occult cancer but also could be part of his neuro-degenerative process. (2) Failure to thrive in adult: (3) Aspiration of food: Status: Acute Assessment and plan: Common problem for him. On specialized diet. Still coughing with all foods. Likely part of his dementia. (4) Comfort measures only status: Status: Acute (5) Developmental disability: Status: Acute Assessment and plan: Life long. People with DD are at risk for dementia; appears he has some type, nos. (6) Unintended weight loss: Status: Acute (7) Nonverbal: Status: Acute Assessment and plan: minimally verbal, does well with simple questions (8) Hospice care patient: Status: Acute Assessment and plan: here on RESPITE for HOSPICE; plan is to discharge him on Wednesday (9) Urinary incontinence: Status: Acute Assessment and plan: has daniel in place (10) Dementia: Status: Chronic Assessment and plan: less able to do for himself, can no longer walk, needs hand feeding, losing adls ability History of Present Illness History of Present Illness Chief Complaint: hospice respite; atypical weight loss; progressive dementia Narrative: Gera Hubbard is a 75 yo man on hospice for combination of unintentional weight loss and progressive dementia. He has lost about 50 lbs over the last year, about 30 lbs over the last 6 months. He continues to eat. Yet he loses weight. 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 His cognitive abilities are also declining significantly over the last year. He currently lives with Marjorie Cesar and her children; she works as an in-home caregiver for [employer]. He has fallen a few times since being on hospice, but now he mostly is bed-bound. He's much weaker. He's lost a lot of muscle mass. He is usually not in pain, though he had been prior to his starting a 12 mcg fentanyl patch. He has been wearing this for several months with good results. He usually is non verbal when I see him at home but he has been talking with the [facility] RN and VOCATIONAL SERVICES SPECIALIST since he was admitted, very simple, one or 2 words at a time. He is incontinent of urine and feces. He has a daniel cath in place. Review of Systems Unobtainable due to mental condition PFS All Active Problems (Updated 03/02/25 @ 18:15 by Ximena Khan MD) Dementia (Chronic) Hospice care patient (Acute) Comfort measures only status (Acute) Aspiration of food (Acute) Elevated lipase (Acute) Recurrent aspiration pneumonia (Acute) Unintended weight loss (Acute) Developmental disability (Acute) Nonverbal (Acute) minimally verbal: can speak in simple phrases and sentences Cholelithiasis (Chronic) Rash (Acute) Tubular adenoma of colon (Acute ~09/2023) Stasis dermatitis of 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 venous hypertension (Acute) Onychomycosis (Acute) Skin rash (Acute) Pain, foot (Acute) Nail dystrophy (Acute) Camptocormia (Acute) Excess ear wax (Acute ~08/11/22) Urinary incontinence (Acute) Squamous cell carcinoma (Acute) Myalgia (Acute) Tubulovillous adenoma (Acute) Colon polyps (Acute) adenomatous polyp 2022 repeat in 2025 Strain of right hip (Acute) Seborrheic keratoses (Acute) Impaired fasting glucose (Acute) PRINCE (dyspnea on exertion) (Acute) Medical History Failure to thrive in adult Pneumonia History of prediabetes Family history of malignant neoplasm of digestive organs Blindness/low vision History of colon polyps Dyspnea History of squamous cell carcinoma Hyperlipidemia Not for resuscitation Anxiety 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/2021 Facial basal cell cancer Sessile colonic polyp Partial blindness Family hx of colon cancer Surgical History History of colonoscopy with polypectomy (~08/11/22) 06/20/2021 History of colonoscopy (~09/2023) Path sent Family History Other Cancer Diabetes Heart failure Hypertension Social History (Updated 03/02/25 @ 18:24 by Ximena Khan MD) Smoking/Tobacco Use Status: Never Smoking risk assessment performed?: Yes Alcohol Intake: never Drug use: Never Substance use type: does not use Caregiver/Support person: Yes Household members: caregiver Housing: house Number of Children: 0 Communication Needs: Hard of Hearing and Cannot Read Education Level: other Details: was at [employer] as a child Do you need help understanding health information?: Always current occupation: disabled Current gender identity: male What is your relationship status?: never How often do you talk on the phone with friends or family?: never Panel score (0-1 are the most socially isolated patients): 0 What type of physical activity do you participate in: none Special ravinder needs: No Seatbelt use: always Working smoke detector in home: Yes Fire extinguisher in home: Yes Do you feel safe at home: Yes Do you feel safe in your relationship?: Yes Additional Social history: Lives with care provider Marjorie Cesar and her 2 young children. Has lived in multiple community care homes over past years. Meds Allergies and Home Medications Allergies Allergy/AdvReac Type Severity Reaction Status Date / Time No Known Allergies Allergy Verified 10/30/24 15:12 Home Medications ?Medication ?Instructions ?Recorded ?Confirmed ?Type ketoconazole 2 % topical cream 1 applic topical DAILY 06/14/24 11/01/24 History nystatin 100,000 unit/gram topical 1 applic topical BID 10/24/24 11/01/24 History powder (Nystop) acetaminophen 650 mg rectal 650 mg KY Q6H PRN fever, mild pain 11/09/24 Rx suppository #6 supp bisacodyl 10 mg rectal suppository 10 mg KY daily PRN constipation #2 11/09/24 Rx (Dulcolax (bisacodyl)) supp haloperidol lactate 2 mg/mL oral 1 mg (0.5 mL) PO Q6H PRN agitation 11/09/24 Rx concentrate #15 mL hyoscyamine sulfate 0.125 mg 0.125 - 0.25 mg (1 - 2 x 0.125 mg) 11/09/24 Rx disintegrating tablet PO Q4H PRN secretions #24 tabs morphine concentrate 100 mg/5 mL 5 - 20 mg (0.25 - 1 mL) PO Q1-4H 11/09/24 Rx (20 mg/mL) oral solution PRN moderate to severe pain or shortness of breath #30 mL prochlorperazine maleate 10 mg 10 mg PO Q6H PRN nausea and 11/09/24 Rx tablet vomiting #6 tabs carboxymethylcellulose sodium 0.5 2 drp OU PRN PRN Dry/itchy eyes #0 11/10/24 Rx % eye drops in a dropperette ea (Refresh Plus) ondansetron 4 mg disintegrating 4 mg PO Q6H PRN PRN #0 tabs 11/10/24 Rx tablet polyethylene glycol 3350 17 gram 17 g PO DAILY PRN PRN #0 ea 11/10/24 Rx oral powder packet mirtazapine 7.5 mg tablet 7.5 mg PO QHS #30 tabs 11/24/24 Rx scopolamine base 1 mg over 3 days 1 mg transdermal Q72H #10 ea 11/24/24 Rx transdermal patch lorazepam 1 mg tablet 1 mg PO Q4H PRN anxiety, PRINCE or 12/16/24 Rx nausea #6 tabs loperamide 2 mg capsule (Imodium 2 mg PO Q1-4H PRN loose stool #30 01/18/25 Rx A-D) caps fentanyl 12 mcg/hr transdermal 1 patch transdermal Q72H #10 ea 01/26/25 Rx patch quetiapine 25 mg tablet (Seroquel) 25 mg PO BID #60 tabs 01/26/25 Rx Exam Narrative Exam Narrative: Very slender balding man with developmental delay, minimally verbal, has lost weight since last hospital admission. eyes anicteric heent hearing grossly intact, mmm neck no lad or jvd lungs ctab, no increase wob cv regular no murmur noted abd very slender, + bs wnl gu has daniel in place, draining clear urine skin no skin breakdown neuro able to answer simple questions, not always consistently, needs to be hand fed, some dysphagia and coughing with eating psych no anxiety noted, likes the nurse and electric stove installer caring for him Time Spent Time spent with Patient: 55-74 minutes Time was spent: preparing to see the patient(eg.review tests), obtaining and/or reviewing separately otained hiistory, ordering medications,tests, procedures, referring, communicating with other health career and guidance counselor and care coordination
--- NOTE | 2025-03-02 18:24 | W.PC.ACHO ---
Registration Status: Primary Language: Preferred Language: Medical / Surgical History (Last Reviewed 11/06/24 @ 15:59 by Aaliyah Saeed NP) Abnormal weight loss Shock due to systemic infection Failure to thrive in adult Pneumonia History of prediabetes Family history of malignant neoplasm of digestive organs Blindness/low vision History of colon polyps Dyspnea History of squamous cell carcinoma Hyperlipidemia Not for resuscitation Anxiety Villous adenoma of rectum (~08/11/22) Facial basal cell cancer Sessile colonic polyp Partial blindness Family hx of colon cancer (Last Reviewed 03/02/25 @ 18:15 by Ximena Khan MD) History of colonoscopy with polypectomy (~08/11/22) History of colonoscopy (~09/2023) Most Recent Vital Signs Pulse 72 03/02/25 18:02 Respiratory Rate 19 03/02/25 18:02 Respiratory Effort Normal 03/02/25 18:02 Respiratory Depth Shallow 03/02/25 18:02 Respiratory Pattern Normal 03/02/25 18:02 Oxygen Delivery Method Room Air 03/02/25 18:02 Oxygen Flow Rate 0 03/02/25 18:02 Allergies No Known Allergies Allergy (Verified 10/30/24 15:12) Diet Orders Category Date Time Status Regular/Normal [DIET] Nutrition 03/02/25 Dinner Active Intake and Output - 24 Hour Total 03/02/25 thru 03/02/25 18:02 Other: Urine Appearance Clear Stool Size Smear Stool Characteristics Soft Falls Risk Assessment History of Falls Previous History 03/02/25 18:02 Contributing Factors Confusion,Impairments 03/02/25 18:02 Ambulatory Aids Uses ambulatory device + 03/02/25 18:02 Gait Evaluation W/any additional score 03/02/25 18:02 Cognition Cognitive impairment 03/02/25 18:02 Fall Total Score 86 03/02/25 18:02 Level of Risk Maximum Risk 03/02/25 18:02 Problems (Last Reviewed 11/06/24 @ 15:59 by Aaliyah Saeed NP) Dementia (Chronic) Hospice care patient (Acute) Comfort measures only status (Acute) Aspiration of food (Acute) Unintended weight loss (Acute) Developmental disability (Acute) Nonverbal (Acute) Urinary incontinence (Acute) v v v v v v v v v Sending and/or Receiving Nurses: Please use comment section below to note any information pertinent to the patient hand-off not included above. Information / Comments: Pt arrives from home via ambulance with only a shirt and brief. He was transferred to a bed in . Skin check was preformed at this time. Report received from: N/A
[2025-03-02] MEDS: Mirtazapine 15 MG TAB 7.5 MG PO (20:38)
[2025-03-02] MEDS: QUEtiapine 25 MG TAB PO (20:39)
[2025-03-02] MEDS: fentaNYL 12 MCG PATCH TD (20:53)
[2025-03-03] MEDS: QUEtiapine 25 MG TAB PO ×2 (09:54→20:25)
--- NOTE | 2025-03-03 12:07 | PDOC.CMPRO ---
Date of service: 03/03/25 Time of Service: 12:07 Care Management Progress Note Progress Note Text Progress Note Text: Gera was admitted on 03/02/25 for hospice respite. He has been in the care of Marjorie Cesar and her family in [place], [place] Gera has been losing weight (50 lbs in past year) for no known reason. He has become weaker and has seen a cognitive decline. Gera is mostly bed bound at this point. He has a developmental delay and neurodegenerative dementia and his speech is limited to one or 2 words at a time. He is incontinent of urine and feces and requires total care. Gera will remain at [facility] under hospice respite for 5 days which should end on 03/06 or 03/07. CM will follow. Social Determinants of Health Screening Will the Patient Participate in the Screening?: Unable to obtain
[2025-03-03] MEDS: Mirtazapine 15 MG TAB 7.5 MG PO (20:25)
[2025-03-04] MEDS: QUEtiapine 25 MG TAB PO ×2 (08:35→19:56)
[2025-03-04] MEDS: Mirtazapine 15 MG TAB 7.5 MG PO (19:56)
[2025-03-05] MEDS: QUEtiapine 25 MG TAB PO ×2 (08:00→21:20)
--- NOTE | 2025-03-05 08:53 | PDOC.CMPRO ---
Date of service: 03/05/25 Time of Service: 08:53 Care Management Progress Note Progress Note Text Progress Note Text: Gera was lying in bed listening to country/western music when CM met with him. He did not really engage in conversation or respond much when spoken to. Gera is at [facility] for hospice respite. He was noted today to have some drainage from his eyes. Hospice was contacted and has ordered some eye drops for him. CM will follow. Discharge Potential Discharge Needs: Other (hospice support) Anticipated Barriers to Discharge: None Identified Patient/Family Education Needs: Review discharge instructions, discuss Ask Me Three Transportation: EMS Plan: Gera will be discharged back to his caregiver's home when his period of respite ends, likely tomorrow. He will be followed by the hospice team and providers and transport via EMS. CM will continue to support discharge planning efforts. Social Determinants of Health Screening Will the Patient Participate in the Screening?: Unable to obtain
[2025-03-05] MEDS: Polymyxin B/Trimethoprim Ophth Soln 10 ML BTL OS (16:07)
--- NOTE | 2025-03-05 17:09 | PGE_ITS ---
Date of Service Date of service: 03/05/25 Time of Service: 14:20 Assessment and Plan Assessment and plan (1) Abnormal weight loss: Assessment and plan: Reason for him being on hospice. Has history of multiple GI pre-cancers, skin pre-cancers, etc. Unsure why he is losing weight. Possibly related to occult cancer but also could be part of his neuro-degenerative process. (2) Failure to thrive in adult: (3) Aspiration of food: Status: Acute Assessment and plan: Common problem for him. On specialized diet. Still coughing with all foods. Likely part of his dementia. - tolerating oral intake w/accommodations, tolerates finger foods best (4) Comfort measures only status: Status: Acute (5) Developmental disability: Status: Acute Assessment and plan: Life long. People with DD are at risk for dementia; appears he has some type, nos. (6) Nonverbal: Status: Acute Assessment and plan: minimally verbal, does well with simple questions (7) Hospice care patient: Status: Acute Assessment and plan: here on RESPITE for HOSPICE; plan is to discharge him on Wednesday (8) Urinary incontinence: Status: Acute Assessment and plan: has daniel in place (9) Dementia: Status: Chronic Assessment and plan: less able to do for himself, can no longer walk, needs hand feeding, losing adls ability (10) Eye discharge: Status: Acute Assessment and plan: improved post eye care, he had been resistant to this earlier - continue Refresh tears - if no better or yellow discharge in eye resumes, may consider abx drops for suspected bacertial conjunctivitis, on hold for now, ordered if needed per hospice report, red eyes, discharge not an acute finding for him Subjective Subjective Interval history since last seen: Gera remains hospitalized at [facility] on hospice respite; worker Ashley sitting bedside Gera was having increased yellow eye discharge from [facility] earlier w/increased eyelid erythema; staff concerned for potential conjunctivitis; after eye care no more discharge, appears more comfortable; Chyna: staff was concerned w/normal diet, some difficulty w/chicken earlier; after care worker came in, were able to make some food adjustments, no longer have concerns tolerating meds okay no pain concerns daniel working appropriately BM yesterday, small Resp, able to cough and clear secretions, w/no dyspnea; scop patch on Ashley feels he is at his status quo today Exam Narrative Exam Narrative: General: chronically ill/frail/thin appearing man w/ developmental delay, minimally verbal eyes: no discharge; eyes anicteric heent hearing grossly intact, mmm neck no lad or jvd gu has daniel in place, draining clear urine skin no skin breakdown neuro able to answer simple questions, not consistently psych no anxiety noted Objective Last Vital Signs Pulse 72 03/02/25 18:02 Resp 19 03/02/25 18:02 Time Spent with Patient Time Spent with Patient: 25-34 minutes Time was spent: preparing to see the patient(eg.review tests), obtaining and/or reviewing separately otained hiistory, referring, communicating with other health student career development specialist, counseling the patient and care coordination
[2025-03-05 17:17] VITALS: TEMP 38.4
[2025-03-05] MEDS: Acetaminophen 500 MG TAB PO (17:18)
[2025-03-05 18:19] VITALS: TEMP 37.7
--- NOTE | 2025-03-05 18:34 | NUR.NOTE ---
patient alert to self only, baseline cognitive delay and only speaks a few words/short scentences to staff. Patient is helpful during turns and able to sit up on EOB and feed himself. At times he is quite retracted and withdraws during care. Conjunctivitis noted in both eyes and Aaliyah Saeed DRUG ABUSE PROGRAM COORDINATOR notified, eye gtts ordered for pt. Lowe to gravity and draining clear yellow urine, moist non productive cough and coarse lung sounds, no BM today, pt had visitors today, was calm and cooperative, tolerated full meals. Around 1717 was noted to have wet gown and sheets, temp checked and noted to be 38.4, given tylenol and FABIANA Saeed notified, no other orders at this time. Temp recheck at 37.7 post tylenol. Q2 hour turns, pt resting in bed with bed alarm on and call trejo in reach, in line of site of nurses station. Nursing Note:
[2025-03-05] MEDS: fentaNYL 12 MCG PATCH TD (21:19)
[2025-03-05] MEDS: Mirtazapine 15 MG TAB 7.5 MG PO (21:20)
[2025-03-06] MEDS: QUEtiapine 25 MG TAB PO ×2 (09:01→20:21)
--- NOTE | 2025-03-06 09:13 | PDOC.CMPRO ---
Date of service: 03/06/25 Time of Service: 09:13 Care Management Progress Note Progress Note Text Progress Note Text: Gera is a 75 yo male on hospice (unintentional weight loss and progressive dementia) with a life long cognitive delay. He lives in [place], [place] with his caregiver Marjorie Cesar (and her family.) Gera is currently admitted to [facility] for Hospice Respite and will return to his caregivers home when ready to discharge. Gera has eye discharge which is concerning for conjunctivitis and was put on polytrim eye drops. He is currently lying in bed and appears to be resting comfortably, therefor CM did not wake him. CM will follow. Discharge Plan: Gera will remain at [facility] under hospice respite for 5 days which should end on 03/06 or 03/07. Will require EMS for transportation. CM will follow. Social Determinants of Health Screening Will the Patient Participate in the Screening?: Unable to obtain
[2025-03-06] MEDS: Polymyxin B/Trimethoprim Ophth Soln 10 ML BTL OS ×2 (11:13→17:41)
--- NOTE | 2025-03-06 11:55 | CHAPLAIN ---
Gera was resting in bed when I visited. He his here on hospice respite and will likely be returning to his caregiver, Marjorie's, home tomorrow. Gera has developmental delays and dementia. He was visiting with Marjorie and two other friends when I stopped in. I explained my role and offered support.
--- NOTE | 2025-03-06 17:43 | NUR.NOTE ---
patient alert to self during shift, cooperative and pleasant, no evidence of pain or distress. Lowe to gravity with decent output, moderate soft BM today, pt consumed all meals in full, sits at EOB for meals, turns every 2 hours, bathed this AM, pt had visitors this afternoon. No new open skin issues, pt d/c to home hospice care tomorrow. Eating dinner at edge of bed at this time. Nursing Note:
[2025-03-06] MEDS: Mirtazapine 15 MG TAB 7.5 MG PO (20:21)
[2025-03-07] MEDS: QUEtiapine 25 MG TAB PO (08:15)
--- NOTE | 2025-03-07 09:10 | CMDISCH_ITS ---
Date of service: 03/07/25 Time of Service: 09:10 LACE Index Scoring Tool Questions: Length of Stay (in days): 4 - 6 Was the patient admitted via the E.D.?: No Comorbidities: Dementia E.D. Visits: 2 Answers: Total Score: 9 Risk of Readmission: Low Risk Care Management Discharge Plan Reason for Hospitalization: Hospice Respite Discharge Plan: Gera was admitted to [facility] for Hospice Respite and is being discharged back to his caregivers home in [facility]. EMS will provide transportation and is arranged by Hospice. Gera will resume Hospice services and follow discharge plan of care as discussed with Hospice. Patient/Family Education Needs: Review discharge instructions and plan to follow up with Hospice. Discuss ask me three. Services Needed at Discharge: Transportation (EMS coordinated by Mary at hospice. Will be here between 3-4pm) SDOH Health Related Social Needs: Health related social needs details Pt unable to salvatore holland needs
[2025-03-07] MEDS: Polymyxin B/Trimethoprim Ophth Soln 10 ML BTL OS (11:38)
--- NOTE | 2025-03-07 15:02 | W.PM.DS.N ---
Date of service: 03/07/25 Time of Service: 15:03 DS: Diagnosis Discharge Diagnosis (1) Abnormal weight loss: Asessment and Plan: reason for him being on hospice does eat well, has a good appetite was feeding himself on this admission more than his usual (2) Failure to thrive in adult: Asessment and Plan: weak, losing weight, less active, loss of muscle mass (3) Aspiration of food: Status: Acute Asessment and Plan: chronic problem , due to both his developmental delay, life long, and to his dementia, due to neurocognitive degeneration (4) Comfort measures only status: Status: Acute Asessment and Plan: Gera has a guardian Plan is to keep him comfortable, no testing or interventions not aimed at him feeling better (5) Developmental disability: Status: Acute Asessment and Plan: life long (6) Nonverbal: Status: Acute Asessment and Plan: did speak a few words regularly with staff, mostly 1-2 word senteces, but occasionally more, Where are you going? (7) Hospice care patient: Status: Acute Asessment and Plan: Was here for 5 nights for hospice respite, [facility]jorie Cesar, caregiver (8) Urinary incontinence: Status: Acute Asessment and Plan: chronic, has daniel in place (9) Dementia: Status: Chronic (10) Eye discharge: Status: Acute Asessment and Plan: chronic, not infectious Discharge Plan Disposition Patient Disposition: Hospice Home Condition: Fair Discharge Details Reason For Visit: Hospice Admit Date/Time: 03/02/25 15:09 Admit Provider: Ximena Khan Attending Provider: Ximena Khan Primary Care Provider: Nori [facility] Hospital Course Hospital Course: I admitted Gera on Friday 03/02 for a 5 night hospice respite stay. He did well here. He had no falls. The staff worked with his diet a bit; he has chronic dysphagia. He was more interactive and talkative with [employer] and RN than he usually is with me. (He has a life long dislike of MDs; was in [employer] as a child). Home Meds and New Rx's Prescriptions: No Action ketoconazole 2 % cream 1 applic topical DAILY nystatin [Nystop] 100,000 unit/gram powder 1 applic topical BID acetaminophen 650 mg suppository 650 mg AK Q6H PRN (Reason: fever, mild pain) Qty: 6 0RF Rx Instructions: Hospice Patient hyoscyamine sulfate 0.125 mg tablet,disintegrating 0.125 - 0.25 mg PO Q4H PRN (Reason: secretions) Qty: 24 0RF Rx Instructions: Hospice Patient haloperidol lactate 2 mg/mL concentrate 1 mg PO Q6H PRN (Reason: agitation) Qty: 15 0RF Rx Instructions: Hospice Patient morphine concentrate 100 mg/5 mL (20 mg/mL) solution 5 - 20 mg PO Q1-4H MDD 5 mL PRN (Reason: moderate to severe pain or shortness of breath) Qty: 30 0RF Rx Instructions: Hospice Patient prochlorperazine maleate 10 mg tablet 10 mg PO Q6H PRN (Reason: nausea and vomiting) Qty: 6 0RF Rx Instructions: Hospice Patient bisacodyl [Dulcolax (bisacodyl)] 10 mg suppository 10 mg AK daily PRN (Reason: constipation) Qty: 2 0RF Rx Instructions: Hospice Patient Insert 1 supp AK Daily PRN constipation (no BM in 3 days) scopolamine base 1 mg over 3 days patch 3 day 1 mg transdermal Q72H Qty: 10 0RF mirtazapine 7.5 mg tablet 7.5 mg PO QHS Qty: 30 5RF lorazepam 1 mg tablet 1 mg PO Q4H PRN (Reason: anxiety, PRINCE or nausea) Qty: 6 5RF Rx Instructions: Hospice Patient loperamide [Imodium A-D] 2 mg capsule 2 mg PO Q1-4H PRN (Reason: loose stool) Qty: 30 0RF Rx Instructions: administer after each loose stool until symptoms controlled; do not exceed 8 mg per 24 hrs fentanyl 12 mcg/hr patch 72 hour 1 patch transdermal Q72H MDD 24mcg/hr Qty: 10 0RF Rx Instructions: hospice patient apply 1-2 patches q 3 days quetiapine [Seroquel] 25 mg tablet 25 mg PO BID Qty: 60 5RF Rx Instructions: 1 tab q 8 am, 2 tabs q 8 pm HOSPICE polyethylene glycol 3350 17 gram Powder In Packet 17 g PO DAILY PRN PRNQty: 0 0RF ondansetron 4 mg Tablet,Disintegrating 4 mg PO Q6H PRN PRNQty: 0 0RF carboxymethylcellulose sodium [Refresh Plus] 0.5 % Dropperette 2 drp OU PRN PRN (Reason: Dry/itchy eyes) Qty: 0 0RF Discharge Instructions Stand Alone Forms: Nursing Discharge Form Activity:: Activity as Tolerated Equipment/Supplies:: No Equipment Needed Diet:: As Tolerated Discharge Data Discharge Date/Time-TO BE ENTERED AT DEPARTURE: 03/07/25 14:58 DS: Summary Time Spent with Patient providing and/or coordinating discharge services: Less than 30 minutes Status at Discharge Functional status at discharge: bed bound Overall status at discharge: patient is back to baseline Mental Status: other (developmentally delayed, confused at baseline) Speech and Movement: delayed speech Mood: anxious mood and other (developmentally delayed, confused at baseline) Affect: anxious affect Quality:SDOH Health Related Social Needs: Health related social needs details Pt unable to verbalize needs Health related social needs details: Will continue with hospice care. Quality: AMI Clinical Trial Participant: No Exam Narrative Exam Narrative: General: chronically ill/frail/thin appearing man w/ developmental delay, minimally verbal eyes: no discharge; eyes anicteric heent hearing grossly intact, mmm neck no lad or jvd gu has daniel in place, draining clear urine skin no skin breakdown neuro able to answer simple questions, not consistently psych no anxiety noted Psych Mental Status: other (developmentally delayed, confused at baseline) Speech and Movement: delayed speech Mood: anxious mood and other (developmentally delayed, confused at baseline) Affect: anxious affect DS: Data Vitals/I&O Vitals and I&O: Vital Signs Temperature 99.9 F H 03/05/25 18:19 Temperature Source Temporal Artery Scan 03/05/25 18:19 Pulse 72 03/02/25 18:02 Respiratory Rate 19 03/02/25 18:02 Respiratory Effort Normal 03/02/25 18:02 Respiratory Depth Shallow 03/02/25 18:02 Respiratory Pattern Normal 03/02/25 18:02 Oxygen Delivery Method Room Air 03/02/25 18:02 Oxygen Flow Rate 0 03/02/25 18:02 Pain Level 0 03/03/25 16:16 Comment 1 03/06/25 08:02 Intake & Output 03/06/25 03/07/25 03/07/25 23:59 11:59 23:59 Intake Total 840 / 1320 480 / 840 360 / 840 Output Total 340 / 840 450 / 650 200 / 650 Balance 500 / 480 30 / 190 160 / 190 Intake: Oral 840 / 1320 480 / 840 360 / 840 Output: Urine 340 / 840 450 / 650 200 / 650 Other: Urine Color Light Cassi Yellow Yellow Straw Straw Urine Appearance Cloudy Clear Clear Comment Patient's urine is cloudy and a light cassi in color, with a strong odor. Stool Size Small Stool Characteristics Soft Brown PFSH All Active Problems Eye discharge (Acute) Dementia (Chronic) Hospice care patient (Acute) Comfort measures only status (Acute) Aspiration of food (Acute) Elevated lipase (Acute) Recurrent aspiration pneumonia (Acute) Unintended weight loss (Acute) Developmental disability (Acute) Nonverbal (Acute) minimally verbal: can speak in simple phrases and sentences Cholelithiasis (Chronic) Rash (Acute) Tubular adenoma of colon (Acute ~09/2023) Stasis dermatitis of 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 venous hypertension (Acute) Onychomycosis (Acute) Skin rash (Acute) Pain, foot (Acute) Nail dystrophy (Acute) Camptocormia (Acute) Excess ear wax (Acute ~08/11/22) Urinary incontinence (Acute) Squamous cell carcinoma (Acute) Myalgia (Acute) Tubulovillous adenoma (Acute) Colon polyps (Acute) adenomatous polyp 2022 repeat in 2025 Strain of right hip (Acute) Seborrheic keratoses (Acute) Impaired fasting glucose (Acute) PRINCE (dyspnea on exertion) (Acute) Medical History Abnormal weight loss Shock due to systemic infection Failure to thrive in adult Pneumonia History of prediabetes Family history of malignant neoplasm of digestive organs Blindness/low vision History of colon polyps Dyspnea History of squamous cell carcinoma Hyperlipidemia Not for resuscitation Anxiety 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/2021 Facial basal cell cancer Sessile colonic polyp Partial blindness Family hx of colon cancer Surgical History History of colonoscopy with polypectomy (~08/11/22) 06/20/2021 History of colonoscopy (~09/2023) Path sent Family History Other Cancer Diabetes Heart failure Hypertension Social History Smoking/Tobacco Use Status: Never Smoking risk assessment performed?: Yes Alcohol Intake: never Drug use: Never Substance use type: does not use Caregiver/Support person: Yes Household members: caregiver Housing: house Number of Children: 0 Communication Needs: Hard of Hearing and Cannot Read Education Level: other Details: was at [employer] as a child Do you need help understanding health information?: Always current occupation: disabled Current gender identity: male What is your relationship status?: never How often do you talk on the phone with friends or family?: never Panel score (0-1 are the most socially isolated patients): 0 What type of physical activity do you participate in: none Special ravinder needs: No Seatbelt use: always Working smoke detector in home: Yes Fire extinguisher in home: Yes Do you feel safe at home: Yes Do you feel safe in your relationship?: Yes Additional Social history: Lives with care provider Marjorie Arsenio and her 2 young children. Has lived in multiple community care homes over past years. Time Spent with Patient Time Spent with Patient: <45 minutes Time was spent: preparing to see the patient(eg.review tests), ordering medications,tests, procedures, referring, communicating with other health healthcare specialist and care coordination
--- NOTE | 2025-03-07 15:18 | NUR.NOTE ---
patient was alert to self (baseline) during shift, no evidence of pain or distress, sat at edge of bed for all meals, minimally conversive, simple yes and no answers, great appetite during meals, BM x2 today, pt returned to [facility] at private hospice home. Patient had recent BM prior to d/c, going with MD Erin rose saw patient at discharge, transfered to [facility], note given to ambulance personnel to give to Marjorie that pt requires fentanyl patch change on 03/08 2100 and new scopalomine patch today when home. Nursing Note:
== END 2025-03-07 15:15 | disposition hospice, inpatient (51) | DRG 641 ==
PROVIDERS: Admitting Provider Family Medicine; PCP Family Medicine; Responsible Provider Nurse Practitioner Acute Care; Visit Provider Family Medicine
DX: R63.4 Abnormal weight loss (principal); R62.7 Adult failure to thrive; Z51.5 Encounter for palliative care; R32 Unspecified urinary incontinence; F03.90 Unspecified dementia, unspecified severity, without behavioral disturbance, psychotic disturbance, mood disturbance, and anxiety; F88 Other disorders of psychological development; I87.391 Chronic venous hypertension (idiopathic) with other complications of right lower extremity; R21 Rash and other nonspecific skin eruption; B35.1 Tinea unguium; R73.01 Impaired fasting glucose; E78.5 Hyperlipidemia, unspecified; T17.928A Food in respiratory tract, part unspecified causing other injury, initial encounter; Z66 Do not resuscitate; F41.9 Anxiety disorder, unspecified; K80.20 Calculus of gallbladder without cholecystitis without obstruction; H57.89 Other specified disorders of eye and adnexa; W44.F3XA Food entering into or through a natural orifice, initial encounter
CPT/HCPCS: 00123

== ENCOUNTER 2025-08-02 13:27 | Outpatient (REF) | payer MEDICARE, MEDICAID, SELFPAY | END 2025-08-02 13:28 | disposition home or self-care (01) | LOC: NCHCN 13:27 | PROVIDERS: PCP Family Medicine; Visit Provider Family Medicine | DX: B37.9 Candidiasis, unspecified (principal) | CPT/HCPCS: 87102; 87206 ==

== ENCOUNTER 2025-11-06 14:12 | Outpatient (REF) | payer MEDICARE, MEDICAID, SELFPAY | END 2025-11-06 14:13 | disposition home or self-care (01) | LOC: NCHCN 14:12 | PROVIDERS: PCP Family Medicine; Visit Provider Family Medicine | DX: R36.9 Urethral discharge, unspecified (principal); R68.89 Other general symptoms and signs | CPT/HCPCS: 87077; 87070; 87186; 87205 ==